=== PATIENT | male | born 1955 | race Caucasian/White ===

== ENCOUNTER 2024-08-18 18:31 | Inpatient (IN) | payer MEDICARE, SELFPAY ==
--- NOTE | ~2024-08-18 | US_ITS ---
EXAMINATION: US venous doppler UE DATE: 08/22/2024 16:48 INDICATION: Right upper limb swelling TECHNIQUE: Grayscale images without and with compression and Doppler images of the bilateral upper ex tremity veins were obtained. COMPARISON: None. FINDINGS: Small amount of noncompressible thrombus in the right basilic vein at the forearm at the distal tip a t the peripheral IV is seen within the vein. The right basilic vein at the upper arm remains patent. The right internal jugular vein, subclavian vein, axillary vein, brachial vein, cephalic vein, radial vein, and ulnar vein are patent. The left internal jugular vein, subclavian vein, axillary vein, brachial vein, basilic vein, cephalic vein, radial vein, and ulnar vein are patent. IMPRESSION: 1. Small amount of thrombus along side a peripheral IV in the right basilic vein at the forearm. Reviewed, dictated and finalized at location B. CTOR OF FIELD SALES IMPRESSION: 1. Small amount of thrombus along side a peripheral IV in the right basilic vei n at the forearm.
--- NOTE | ~2024-08-18 | XR_ITS ---
IMPRESSION: 1. No evidence of osteomyelitis. EXAMINATION: XR foot RT min 3V DATE: 08/18/2024 22:32 INDICATION: Right foot ulcer. TECHNIQUE: 3 views of right foot were obtained. COMPARISON: None. FINDINGS: Alignment is normal. No fracture. There is mild osteoarthritis of talonavicular joint. Ther e are enthesophytes at the posterior and plantar aspects of calcaneal tuberosity. IMPRESSION: 1. No evidence of osteomyelitis. Reviewed, dictated and finalized at location A. ESS DEVELOPER
--- NOTE | ~2024-08-18 | US_ITS ---
US renal BI Ordering provider: Jennifer Hammond MD History: . rosendo . Comparison: None Technique: Ultrasound bilateral kidneys. Findings: RIGHT KIDNEY: Not demonstrated. LEFT KIDNEY: Measures 10.8x 5.2x 5.6 cm in length which is normal in size. No renal cysts. No renal m ass or visualized echogenic stones. Otherwise, normal echotexture and contour. No hydronephrosis. Nor mal renal cortical thickness. BLADDER: Not visualized. IMPRESSION: Right kidney is not visualized. The left kidney is normal. Reviewed, dictated and finalized at location A. GER ED
--- NOTE | ~2024-08-18 | MR_ITS ---
EXAMINATION: MR brain/brain stem wo/w con DATE: 08/19/2024 17:25 INDICATION: Seizure-like activity. TECHNIQUE: Magnetic resonance imaging (MRI) of the brain and brainstem was performed without and with 20 mL MultiHance intravenous contrast. COMPARISON: Head CT 08/18/2024 FINDINGS: There is no intracranial hemorrhage, acute infarction, or abnormal intracranial mass lesion . There are scattered areas of nonspecific increased T2-weighted signal intensity in the cerebral whi te matter. The ventricles are normal in size. There are likely changes of ocular lens replacement mariano geries. The paranasal sinuses are clear. The mastoid air cells are normal. IMPRESSION: 1. Mild nonspecific cerebral white matter disease and pontine disease, which likely represents chroni c small vessel ischemic disease. Reviewed, dictated and finalized at location A. ESSMAKER IMPRESSION: 1. Mild nonspecific cerebral white matter disease and pontine disease, which mejia meyers represents chronic small vessel ischemic disease.
--- NOTE | ~2024-08-18 | US_ITS ---
EXAMINATION: US carotid duplex BI DATE: 08/21/2024 17:14 INDICATION: Cerebrovascular disease. TECHNIQUE: Grayscale, color Doppler, and pulsed Doppler images of the cervical carotid arteries were obtained. The degree of vessel stenosis is placed in one of the following categories: normal, <50%, 5 0-69%, >=70% but less than near-occlusion, near-occlusion, or total occlusion. Note that percent sten osis relative to normal distal artery lumen diameter is indirectly measured from velocity measurement s as described by Pancho, et al. Radiology 2003; 229:340-346. COMPARISON: None. FINDINGS: RIGHT: The right common carotid artery (CCA) peak systolic velocity (PSV) is 71 cm/s. The right internal car otid artery (ICA) PSV is 64 cm/s. The right ICA end-diastolic velocity (EDV) is 15 cm/s. The right IC A/CCA PSV ratio is 0.9. Grayscale and color Doppler images yield an estimate of <50% diameter reducti on from plaque in the ICA. There is antegrade flow in the right vertebral artery. LEFT: The left CCA PSV is 57 cm/s. The left ICA PSV is 75 cm/s. The left ICA EDV is 21 cm/s. The left ICA/C CA PSV ratio is 1.3. Grayscale and color Doppler images yield an estimate of <50% diameter reduction from plaque in the ICA. There is antegrade flow in the left vertebral artery. IMPRESSION: 1. <50% stenosis in the right internal carotid artery. 2. <50% stenosis in the left internal carotid artery. Reviewed, dictated and finalized at location A. NTIFIC ILLUSTRATOR
--- NOTE | ~2024-08-18 | XR_ITS ---
EXAMINATION: XR chest 1V portable DATE: 08/18/2024 19:01 INDICATION: Weakness. TECHNIQUE: A single frontal view of the chest was obtained. COMPARISON: None. FINDINGS: There is no pneumonia, pleural effusion, or pneumothorax. The heart size is normal. IMPRESSION: 1. No acute cardiopulmonary disease. Reviewed, dictated and finalized at location A. ELING NURSE
--- NOTE | ~2024-08-18 | CT_ITS ---
EXAMINATION: CT brain wo con DATE: 08/18/2024 21:29 INDICATION: Altered mental status. TECHNIQUE: Computed tomography (CT) of the head was performed without intravenous contrast. The mA wa s adjusted according to patient size. Iterative reconstruction technique was employed. The dose-lengt h product was 756.67 mGy-cm. COMPARISON: None FINDINGS: There is no intracranial hemorrhage, acute infarction, or abnormal intracranial mass lesion . There are scattered areas of low attenuation in the cerebral white matter, which is within normal l imits for the patient's age. The ventricles are normal in size. There are likely changes of ocular le ns replacement surgeries. There is mild mucosal thickening in the paranasal sinuses. The mastoid air cells are normal. IMPRESSION: 1. Normal aging brain. Reviewed, dictated and finalized at location A. INE ENGINE ASSEMBLER IMPRESSION: 1. Normal aging brain.
[2024-08-18 18:26] VITALS: BP 131/79; PULSE 72; RESP 20; O2SAT 93
--- NOTE | 2024-08-18 18:36 | ECG_ITS ---
Test Date: 2024-08-18 18:40:27 Measurements Intervals [place] Rate: 71 P: 6 CT: 213 QRS: 26 QRSD: 101 T: 39 QT: 377 QTc: 411 Interpretive Statements SINUS RHYTHM WITH FIRST DEGREE AV BLOCK BASELINE ARTIFACT- I, II, III, AVR, AVL, AVF, V1-V6 BORDERLINE ECG No previous ECG available for comparison Electronically Signed On 08-18-2024 18:59:36 [address] by Neftali Patton D.O.
[2024-08-18 18:56] LABS: Basophils Percent Auto 0.2 % (0.2-1.2); Eosinophils Percent Auto 0.1 % (0-4.4); Hematocrit 49.5 % (42.0-52.0); Hemoglobin 16.7 g/dL (14.0-18.0); Immature Granulocyte Percent A 0.6 % (0-0.5); Lymphocytes Absolute Auto 0.73 K/mm3 (0.9-3.2); Lymphocytes Percent Auto 4.2 % (18.3-44.2); Mean Corpuscular HGB Conc 33.7 g/dl (32-36); Mean Corpuscular Hemoglobin 30.9 pg (26-34); Mean Corpuscular Volume 91.7 fl (80-100); Mean Platelet Volume 11.4 fl (7.4-10.4); Monocytes Absolute Auto 1.7 K/mm3 (0.1-0.6); Monocytes Percent Auto 9.5 % (2.6-8.5); Neutrophils Absolute Auto 14.8 K/mm3 (1.3-6.7); Neutrophils Percent Auto 85.4 % (45.5-73.1); Platelet Count Result 278 k/mm3 (150-375); Red Cell Distribution Width 13.4 % (11.5-14.5); White Blood Count 17.4 K/mm3 (4.5-10.0)
[2024-08-18 19:15] LABS: Alanine Aminotransferase 49 U/L (6-50); Albumin Level 4.2 g/dL (3.5-5.1); Alkaline Phosphatase 92 U/L (38-126); Anion Gap 15 mmol/L (4-12); Aspartate Amino Transferase 198 U/L (17-59); Bilirubin,Total 2.3 mg/dL (0.2-1.3); Blood Urea Nitrogen 53 mg/dL (9-20); Carbon Dioxide 21 mmol/L (22-30); Chloride 93 mmol/L (98-107); Estimated CRCL calculation 53 ml/min; Estimated Glomerular Filt Rate 47; Glucose 337 mg/dL (65-110); Potassium 4.8 mmol/L (3.4-5.0); Sodium 129 mmol/L (137-145)
--- NOTE | 2024-08-18 19:21 | PC.NURSE ---
Assumed care of pt after receiving report from YANCI Spencer @[phone]
[2024-08-18 19:30] VITALS: BP 137/83; PULSE 82; RESP 22; TEMP 36.8; O2SAT 99
[2024-08-18] MEDS: SODIUM CHLORIDE 0.9% IV 1,000 ML 999 ML IV CONT (19:50)
[2024-08-18 19:57] LABS: Creatine Kinase 6538 U/L (55-170)
[2024-08-18 20:21] LABS: Influenza A QL RT-PCR Negative (Negative); Influenza B QL RT-PCR Negative (Negative); RSV RNA, RT-PCR Negative (Negative); SARS-CoV-2 RNA PCR Negative (Negative)
[2024-08-18 20:45] LABS: Add Urine Microscopic? YES; Appearance Urine Clear (Clear); Bacteria Urine None Seen /hpf; Bilirubin Urine Negative (Negative); Blood Urine 1+ (Negative); Color Urine Yellow (Yellow); Glucose Urine UA 3+ mg/dL (Negative); Ketones Urine Negative (Negative); Leukocyte Esterase Ur Negative LEU/UL (Negative); Nitrate Urine Negative (Negative); Non Pathogenic Casts 0-2; Protein Urine 2+ mg/dL (Negative); RBC Urine 0-2 /hpf (0-2); Specific Grav Ur 1.025 (1.001-1.035); Squamous Epithelial Cell Urine None Seen /hpf (Few); WBC Urine 0-5 /hpf (0-3)
[2024-08-18 20:54] LABS: Alveolar/Arterial O2 Gradient 38.7 mmHg; Base Excess ABG -3.7 mEq/l (+/-2.0); Fractional Inspired Oxygen 21 %; HCO3 ABG 19.1 mEq/l (22.0-26.0); Oxygen Content ABG 21.4 %vol (16.0-22.0); Oxygen Saturation ABG 95.7 % (95.0-100.0); Oxyhemoglobin 94.4 % THb (90.0-100.0); PCO2 ABG 29.4 mmHg (35.0-45.0); PO2 ABG 75.8 mmHg (80.0-100.0); PO2 FiO2 Ratio Arterial Blood 3.61 %; Total Hemoglobin 16.1 g/dL (12.0-18.0)
[2024-08-18 20:56] LABS: Amphetamine Screen Urine Negative (Negative); Barbiturate Screen Urine Negative (Negative); Benzodiazepines Screen Urine Positive (Negative); Cannabinoid Screen Urine Positive (Negative); Cocaine Screen Urine Negative (Negative); Methadone Screen Urine Negative (Negative); Opiate Screen Urine Negative (Negative); Phencyclidine Screen Urine Negative (Negative)
[2024-08-18 20:56] LABS: Modified Allen's Test Pass; Site Drawn RIGHT RADIAL
[2024-08-18 21:19] LABS: INR 1.2; Prothrombin Time 15.9 Seconds (11.1-14.7)
[2024-08-18 21:20] LABS: Ethanol < 10 mg/dL (<10); Lactic Acid Reflex 2.1 mmol/L (0.7-2.0)
--- NOTE | 2024-08-18 21:26 | ED.WEAKNESS ---
HPI - Weakness General Chief complaint: Weakness <Anastasiya Goldman PA-C - Last Filed: 08/18/24 22:55> Stated complaint: GENERALIZED WEAKNESS <Anastasiya Goldman PA-C - Last Filed: 08/18/24 22:55> History of Present Illness HPI Narrative: 68-year-old male presents to the ED with son at bedside via EMS for generalized weakness. Patient states he has felt weak for the past 2-3 days. He denies pain anywhere, chest pain, shortness of breath, abdominal pain, N/V/D, dysuria or hematuria, cough or congestion, rash. Patient's son is at bedside to assist with history. States the patient was at home by himself and has been having difficulty care for himself. States the patient's father went to check on the patient today and had found him sitting in his recliner with soiled pants. The patient reportedly had been sitting in the recliner for 2-3 days. States he could not get up because he felt weak. He normally ambulates with a walker but has been unable to ambulate since. Patient's son is enquiring about assisted living placement. States he is concerned the patient has not been caring for himself and has not been compliant with his medications. However the patient is adamantly against usp/assisted living placement. Patient has since also states the patient has seemed more confused than normal. <Anastasiya Goldman PA-C - Last Filed: 08/18/24 22:55> Related Data Home medications: Home Medications Medication Instructions Recorded Confirmed alprazolam 0.5 mg tablet 0.5 mg PO BID PRN Anxiety 08/18/24 08/18/24 duloxetine 60 mg capsule,delayed 60 mg PO DAILY 08/18/24 08/18/24 release insulin aspart U-100 100 unit/mL See Rx Instructions .Route 08/18/24 08/18/24 (3 mL) subcutaneous pen (Novolog .COMPLEX PRN Hyperglycemia FlexPen U-100 Insulin aspart) insulin degludec 200 unit/mL (3 See Rx Instructions .Route .COMPLEX 08/18/24 08/18/24 mL) subcutaneous pen (Tresiba FlexTouch U-200 insulin) losartan 100 mg tablet 100 mg PO DAILY 08/18/24 08/18/24 pregabalin 200 mg capsule 200 mg PO TID 08/18/24 08/18/24 rosuvastatin 10 mg tablet 10 mg PO DAILY 08/18/24 08/18/24 vibegron 75 mg tablet (Gemtesa) 75 mg PO DAILY 08/18/24 08/18/24 <Anastasiya Goldman PA-C - Last Filed: 08/18/24 22:55> Allergies/Adverse reactions: Allergies Allergy/AdvReac Type Severity Reaction Status Date / Time No Known Allergies Allergy Verified 08/18/24 19:34 <Anastasiya Goldman PA-C - Last Filed: 08/18/24 22:55> Review of Systems Review of Systems: All systems reviewed & are unremarkable except as noted in HPI and below <Anastasiya Goldman PA-C - Last Filed: 08/18/24 22:55> [facility], LAT[facility] Family History Family History: Family History (Updated 08/18/24 @ 23:40 by Maribeth Sagastume RN) Other Unknown family medical history <Anastasiya Goldman PA-C - Last Filed: 08/18/24 22:55> Social History Social History: Social History Smoking status: Former smoker Substance use: former Substance use type: crack/cocaine Do You Feel Safe in your Home?: Yes Lack of Transportation: No Lack of Food: Never True Current Housing: I Have Housing Concerned About Future Housing: No Difficulty Paying Gas/Electric Bills: No Difficulty Paying for Meds: YES Currently Unemployed: No Education: High School Diploma/GED Difficulty w/ Childcare or Family Care: No Spiritual care concerns: No <Anastasiya Goldman PA-C - Last Filed: 08/18/24 22:55> Exam Narrative: GENERAL: Chronically ill-appearing, NAD HEAD: Normocephalic, atraumatic. EYES: PERRLA and EOMI. ENT: Nares clear, no rhinorrhea or epistaxis. Mucous membranes moist. NECK: Supple. CHEST: Clear to auscultation. No respiratory distress. HEART: Regular rate and rhythm. No murmur heard. Normal peripheral pulses. ABDOMEN: Soft, nontender, nondistended, normal active bowel sounds. Pants are soiled with stool EXTREMITIES: Lower extremities with evidence of chronic PAD, hemosiderin deposition and delayed cap refill SKIN: Healing abrasion to the left elbow with no bony tenderness and full range of motion. No ischial or sacral wounds. 1cm chronic wound to the plantar aspect of the right foot with no surrounding cellulitis, no purulence. Patient and family states this is chronic NEURO: No focal deficits. Alert and oriented x2. Moving all extremities spontaneously <Anastasiya Goldman PA-C - Last Filed: 08/18/24 22:55> Course FOILING MACHINE OPERATOR/PA Physician Supervision For this patient encounter, I reviewed the FOILING MACHINE OPERATOR or PA documentation, treatment plan, and medical decision making and had [id number] time with this patient. I performed all aspects of the MDM as documented. <Bruna Rangel MD - Last Filed: 08/19/24 07:27> Vital Signs Vital signs: Vital Signs Pulse Rate 72 08/18/24 18:26 Respiratory Rate 20 08/18/24 18:26 Blood Pressure 131/79 08/18/24 18:26 Pulse Oximetry 93 08/18/24 18:26 Oxygen Delivery Room Air 08/18/24 18:26 Temperature 97.2 F L 08/19/24 04:15 Pulse Rate 70 08/19/24 04:15 Respiratory Rate 24 H 08/19/24 04:15 Blood Pressure 126/61 08/19/24 04:15 Pulse Oximetry 98 08/19/24 04:15 Oxygen Delivery Room Air 08/18/24 18:26 <Anastasiya Goldman PA-C - Last Filed: 08/18/24 22:55> Vital Signs Pulse Rate 72 08/18/24 18:26 Respiratory Rate 20 08/18/24 18:26 Blood Pressure 131/79 08/18/24 18:26 Pulse Oximetry 93 08/18/24 18:26 Oxygen Delivery Room Air 08/18/24 18:26 Temperature 97.2 F L 08/19/24 04:15 Pulse Rate 70 08/19/24 04:15 Respiratory Rate 24 H 08/19/24 04:15 Blood Pressure 126/61 08/19/24 04:15 Pulse Oximetry 98 08/19/24 04:15 Oxygen Delivery Room Air 08/18/24 18:26 <Bruna Rangel MD - Last Filed: 08/19/24 07:27> MDM - Weakness MDM Narrative Medical decision making narrative: 68-year-old male history of insulin-dependent diabetes, hypertension, hyperlipidemia presents to the emergency department via EMS from home with son at bedside for generalized weakness and failure to thrive. See HPI for further history. Triage vitals are stable. He is afebrile. CBC with leukocytosis of 17.4. Chemistries are remarkable for hyponatremia of 129, chloride of 93, bicarb of 21 with an anion gap of 15. His glucose is also elevated at 337 his lactic elevated 2.1. Anion gap acidosis may be secondary to mild DKA verses dehydration. Will add on beta hydroxybutyrate. Patient is found to be in rhabdo with a CK of 6538 resulting in SEBLE with a creatinine of 1.5 and BUN of 53. UA with glucosuria, proteinuria and +blood, no UTI. UDS is positive for benzodiazepines and cannabinoids. COVID, flu RSV are negative. Chest x-ray shows no acute cardiopulmonary findings. ETOH less than 10. Troponin within normal limits. EKG shows sinus rhythm with first-degree AV block, no ischemic changes. XR of the right foot shows no evidence of osteomyelitis. The area does not appear to be infected on exam. Beta hydroxybutyrate is very minimally elevated at 0.44. I have very low suspicion for DKA and states suspect his electrolyte derangement and confusion is secondary to rhabdomyolysis and dehydration. Fluids given in the ED. Plan admit to the hospitalist for further evaluation and management. Discussed the case with the hospitalist, Dr. Hammond, agrees to the plan for admission. <Anastasiya Goldman PA-C - Last Filed: 08/18/24 22:55> Lab Data Result diagrams: 08/19/24 05:15 08/19/24 05:15 <Anastasiya Goldman PA-C - Last Filed: 08/18/24 22:55> Labs: Lab Results 08/18/24 08/18/24 08/18/24 Range/Units 18:49 19:35 20:02 WBC 17.4 H (4.5-10.0) K/mm3 RBC 5.40 (4.6-6.20) M/mm3 Hgb 16.7 (14.0-18.0) g/dL Hct 49.5 (42.0-52.0) % MCV 91.7 (80-100) fl MCH 30.9 (26-34) pg MCHC 33.7 (32-36) g/dl RDW 13.4 (11.5-14.5) % Plt Count 278 (150-375) k/mm3 MPV 11.4 H (7.4-10.4) fl Immature Gran % (Auto) 0.6 H (0-0.5) % Neut % (Auto) 85.4 H (45.5-73.1) % Lymph % (Auto) 4.2 L (18.3-44.2) % [place] % (Auto) 9.5 H (2.6-8.5) % Eos % (Auto) 0.1 (0-4.4) % Baso % (Auto) 0.2 (0.2-1.2) % Lymph # (Auto) 0.73 L (0.9-3.2) K/mm3 [place] # (Auto) 1.7 H (0.1-0.6) K/mm3 Eos # (Auto) 0.0 (0-0.3) K/mm3 Baso # (Auto) 0.0 (0.0-0.1) K/mm3 Abs Immat Gran (auto) 0.10 H (0.00-0.031) K/mm3 Absolute Neuts (auto) 14.8 H (1.3-6.7) K/mm3 Absolute Nucleated RBC 0.000 (0.0-0.012) K/mm3 Nucleated RBC % 0.0 (0.0-0.2) % PT (11.1-14.7) Seconds INR APTT (22.3-36.8) Seconds Sodium 129 L (137-145) mmol/L Potassium 4.8 (3.4-5.0) mmol/L Chloride 93 L (98-107) mmol/L Carbon Dioxide 21 L (22-30) mmol/L Anion Gap 15 H (4-12) mmol/L BUN 53 H (9-20) mg/dL Creatinine 1.50 H (0.7-1.3) mg/dL Estim Creat Clear Calc 53 ml/min Estimated GFR 47 L (59 - ) Glucose 337 H (65-110) mg/dL Lactic Acid (0.7-2.0) mmol/L Calcium 9.0 (8.4-10.2) mg/dL Total Bilirubin 2.3 H (0.2-1.3) mg/dL AST 198 H (17-59) U/L ALT 49 (6-50) U/L Alkaline Phosphatase 92 (38-126) U/L Total Creatine Kinase 6538 H (55-170) U/L Troponin I (0.000-0.034) ng/mL Total Protein 8.0 (6.3-8.2) g/dL Albumin 4.2 (3.5-5.1) g/dL Beta-Hydroxybutyrate/Acetoacetate (0.02-0.27) mmol/L TSH (0.465-4.680) uIU/mL Urine Color Yellow (Yellow) Urine Appearance Clear (Clear) Urine pH 5.0 (5.0-9.0) Ur Specific Williams 1.025 (1.001-1.035) Urine Protein 2+ H (Negative) mg/dL Urine Glucose (UA) 3+ H (Negative) mg/dL Urine Ketones Negative (Negative) mg/dL Ur Blood (Man) 1+ H (Negative) Urine Nitrate Negative (Negative) Urine Bilirubin Negative (Negative) Urine Urobilinogen 1.0 (<2.0) mg/dL Leukocyte Esterase Rfl Negative (Negative) IFEOMA/UL Urine RBC 0-2 (0-2) /hpf Urine WBC 0-5 (0-3) /hpf Ur Squamous Epith Cells None seen (Few) /hpf Urine Bacteria None seen /hpf Urine Casts 0-2 Ur Random Sodium 35 meq/L Urine Creatinine 145.4 mg/dL Urine Opiates Screen Negative (Negative) Urine Methadone Screen Negative (Negative) Ur Barbiturates Screen Negative (Negative) Ur Phencyclidine Scrn Negative (Negative) Ur Amphetamine Screen Negative (Negative) U Benzodiazepines Scrn Positive A (Negative) Urine Cocaine Screen Negative (Negative) U Cannabinoids Screen Positive A (Negative) Ethyl Alcohol (<10) mg/dL Influenza A (RT-PCR) Negative (Negative) Influenza B (RT-PCR) Negative (Negative) RSV (RT-PCR) Negative (Negative) SARS-CoV-2 RNA (RT-PCR) Negative (Negative) 08/18/24 Range/Units 20:59 WBC (4.5-10.0) K/mm3 RBC (4.6-6.20) M/mm3 Hgb (14.0-18.0) g/dL Hct (42.0-52.0) % MCV (80-100) fl MCH (26-34) pg MCHC (32-36) g/dl RDW (11.5-14.5) % Plt Count (150-375) k/mm3 MPV (7.4-10.4) fl Immature Gran % (Auto) (0-0.5) % Neut % (Auto) (45.5-73.1) % Lymph % (Auto) (18.3-44.2) % [place] % (Auto) (2.6-8.5) % Eos % (Auto) (0-4.4) % Baso % (Auto) (0.2-1.2) % Lymph # (Auto) (0.9-3.2) K/mm3 [place] # (Auto) (0.1-0.6) K/mm3 Eos # (Auto) (0-0.3) K/mm3 Baso # (Auto) (0.0-0.1) K/mm3 Abs Immat Gran (auto) (0.00-0.031) K/mm3 Absolute Neuts (auto) (1.3-6.7) K/mm3 Absolute Nucleated RBC (0.0-0.012) K/mm3 Nucleated RBC % (0.0-0.2) % PT 15.9 H (11.1-14.7) Seconds INR 1.2 APTT 30.0 (22.3-36.8) Seconds Sodium (137-145) mmol/L Potassium (3.4-5.0) mmol/L Chloride (98-107) mmol/L Carbon Dioxide (22-30) mmol/L Anion Gap (4-12) mmol/L BUN (9-20) mg/dL Creatinine (0.7-1.3) mg/dL Estim Creat Clear Calc ml/min Estimated GFR (59 - ) Glucose (65-110) mg/dL Lactic Acid 2.1 H (0.7-2.0) mmol/L Calcium (8.4-10.2) mg/dL Total Bilirubin (0.2-1.3) mg/dL AST (17-59) U/L ALT (6-50) U/L Alkaline Phosphatase (38-126) U/L Total Creatine Kinase (55-170) U/L Troponin I < 0.012 (0.000-0.034) ng/mL Total Protein (6.3-8.2) g/dL Albumin (3.5-5.1) g/dL Beta-Hydroxybutyrate/Acetoacetate 0.44 H (0.02-0.27) mmol/L TSH 0.514 (0.465-4.680) uIU/mL Urine Color (Yellow) Urine Appearance (Clear) Urine pH (5.0-9.0) Ur Specific Williams (1.001-1.035) Urine Protein (Negative) mg/dL Urine Glucose (UA) (Negative) mg/dL Urine Ketones (Negative) mg/dL Ur Blood (Man) (Negative) Urine Nitrate (Negative) Urine Bilirubin (Negative) Urine Urobilinogen (<2.0) mg/dL Leukocyte Esterase Rfl (Negative) IFEOMA/UL Urine RBC (0-2) /hpf Urine WBC (0-3) /hpf Ur Squamous Epith Cells (Few) /hpf Urine Bacteria /hpf Urine Casts Ur Random Sodium meq/L Urine Creatinine mg/dL Urine Opiates Screen (Negative) Urine Methadone Screen (Negative) Ur Barbiturates Screen (Negative) Ur Phencyclidine Scrn (Negative) Ur Amphetamine Screen (Negative) U Benzodiazepines Scrn (Negative) Urine Cocaine Screen (Negative) U Cannabinoids Screen (Negative) Ethyl Alcohol < 10 (<10) mg/dL Influenza A (RT-PCR) (Negative) Influenza B (RT-PCR) (Negative) RSV (RT-PCR) (Negative) SARS-CoV-2 RNA (RT-PCR) (Negative) <Anastasiya Goldman PA-C - Last Filed: 08/18/24 22:55> Lab Results 08/18/24 08/18/24 08/18/24 Range/Units 18:49 19:35 20:02 WBC 17.4 H (4.5-10.0) K/mm3 RBC 5.40 (4.6-6.20) M/mm3 Hgb 16.7 (14.0-18.0) g/dL Hct 49.5 (42.0-52.0) % MCV 91.7 (80-100) fl MCH 30.9 (26-34) pg MCHC 33.7 (32-36) g/dl RDW 13.4 (11.5-14.5) % Plt Count 278 (150-375) k/mm3 MPV 11.4 H (7.4-10.4) fl Immature Gran % (Auto) 0.6 H (0-0.5) % Neut % (Auto) 85.4 H (45.5-73.1) % Lymph % (Auto) 4.2 L (18.3-44.2) % [place] % (Auto) 9.5 H (2.6-8.5) % Eos % (Auto) 0.1 (0-4.4) % Baso % (Auto) 0.2 (0.2-1.2) % Lymph # (Auto) 0.73 L (0.9-3.2) K/mm3 [place] # (Auto) 1.7 H (0.1-0.6) K/mm3 Eos # (Auto) 0.0 (0-0.3) K/mm3 Baso # (Auto) 0.0 (0.0-0.1) K/mm3 Abs Immat Gran (auto) 0.10 H (0.00-0.031) K/mm3 Absolute Neuts (auto) 14.8 H (1.3-6.7) K/mm3 Absolute Nucleated RBC 0.000 (0.0-0.012) K/mm3 Nucleated RBC % 0.0 (0.0-0.2) % PT (11.1-14.7) Seconds INR APTT (22.3-36.8) Seconds Sodium 129 L (137-145) mmol/L Potassium 4.8 (3.4-5.0) mmol/L Chloride 93 L (98-107) mmol/L Carbon Dioxide 21 L (22-30) mmol/L Anion Gap 15 H (4-12) mmol/L BUN 53 H (9-20) mg/dL Creatinine 1.50 H (0.7-1.3) mg/dL Estim Creat Clear Calc 53 ml/min Estimated GFR 47 L (59 - ) Glucose 337 H (65-110) mg/dL Lactic Acid (0.7-2.0) mmol/L Calcium 9.0 (8.4-10.2) mg/dL Total Bilirubin 2.3 H (0.2-1.3) mg/dL AST 198 H (17-59) U/L ALT 49 (6-50) U/L Alkaline Phosphatase 92 (38-126) U/L Total Creatine Kinase 6538 H (55-170) U/L Troponin I (0.000-0.034) ng/mL Total Protein 8.0 (6.3-8.2) g/dL Albumin 4.2 (3.5-5.1) g/dL Beta-Hydroxybutyrate/Acetoacetate (0.02-0.27) mmol/L TSH (0.465-4.680) uIU/mL Urine Color Yellow (Yellow) Urine Appearance Clear (Clear) Urine pH 5.0 (5.0-9.0) Ur Specific Williams 1.025 (1.001-1.035) Urine Protein 2+ H (Negative) mg/dL Urine Glucose (UA) 3+ H (Negative) mg/dL Urine Ketones Negative (Negative) mg/dL Ur Blood (Man) 1+ H (Negative) Urine Nitrate Negative (Negative) Urine Bilirubin Negative (Negative) Urine Urobilinogen 1.0 (<2.0) mg/dL Leukocyte Esterase Rfl Negative (Negative) IFEOMA/UL Urine RBC 0-2 (0-2) /hpf Urine WBC 0-5 (0-3) /hpf Ur Squamous Epith Cells None seen (Few) /hpf Urine Bacteria None seen /hpf Urine Casts 0-2 Ur Random Sodium 35 meq/L Urine Creatinine 145.4 mg/dL Urine Opiates Screen Negative (Negative) Urine Methadone Screen Negative (Negative) Ur Barbiturates Screen Negative (Negative) Ur Phencyclidine Scrn Negative (Negative) Ur Amphetamine Screen Negative (Negative) U Benzodiazepines Scrn Positive A (Negative) Urine Cocaine Screen Negative (Negative) U Cannabinoids Screen Positive A (Negative) Ethyl Alcohol (<10) mg/dL Influenza A (RT-PCR) Negative (Negative) Influenza B (RT-PCR) Negative (Negative) RSV (RT-PCR) Negative (Negative) SARS-CoV-2 RNA (RT-PCR) Negative (Negative) 11/18/24 Range/Units 20:59 WBC (4.5-10.0) K/mm3 RBC (4.6-6.20) M/mm3 Hgb (14.0-18.0) g/dL Hct (42.0-52.0) % MCV (80-100) fl MCH (26-34) pg MCHC (32-36) g/dl RDW (11.5-14.5) % Plt Count (150-375) k/mm3 MPV (7.4-10.4) fl Immature Gran % (Auto) (0-0.5) % Neut % (Auto) (45.5-73.1) % Lymph % (Auto) (18.3-44.2) % [place] % (Auto) (2.6-8.5) % Eos % (Auto) (0-4.4) % Baso % (Auto) (0.2-1.2) % Lymph # (Auto) (0.9-3.2) K/mm3 [place] # (Auto) (0.1-0.6) K/mm3 Eos # (Auto) (0-0.3) K/mm3 Baso # (Auto) (0.0-0.1) K/mm3 Abs Immat Gran (auto) (0.00-0.031) K/mm3 Absolute Neuts (auto) (1.3-6.7) K/mm3 Absolute Nucleated RBC (0.0-0.012) K/mm3 Nucleated RBC % (0.0-0.2) % PT 15.9 H (11.1-14.7) Seconds INR 1.2 APTT 30.0 (22.3-36.8) Seconds Sodium (137-145) mmol/L Potassium (3.4-5.0) mmol/L Chloride (98-107) mmol/L Carbon Dioxide (22-30) mmol/L Anion Gap (4-12) mmol/L BUN (9-20) mg/dL Creatinine (0.7-1.3) mg/dL Estim Creat Clear Calc ml/min Estimated GFR (59 - ) Glucose (65-110) mg/dL Lactic Acid 2.1 H (0.7-2.0) mmol/L Calcium (8.4-10.2) mg/dL Total Bilirubin (0.2-1.3) mg/dL AST (17-59) U/L ALT (6-50) U/L Alkaline Phosphatase (38-126) U/L Total Creatine Kinase (55-170) U/L Troponin I < 0.012 (0.000-0.034) ng/mL Total Protein (6.3-8.2) g/dL Albumin (3.5-5.1) g/dL Beta-Hydroxybutyrate/Acetoacetate 0.44 H (0.02-0.27) mmol/L TSH 0.514 (0.465-4.680) uIU/mL Urine Color (Yellow) Urine Appearance (Clear) Urine pH (5.0-9.0) Ur Specific Williams (1.001-1.035) Urine Protein (Negative) mg/dL Urine Glucose (UA) (Negative) mg/dL Urine Ketones (Negative) mg/dL Ur Blood (Man) (Negative) Urine Nitrate (Negative) Urine Bilirubin (Negative) Urine Urobilinogen (<2.0) mg/dL Leukocyte Esterase Rfl (Negative) IFEOMA/UL Urine RBC (0-2) /hpf Urine WBC (0-3) /hpf Ur Squamous Epith Cells (Few) /hpf Urine Bacteria /hpf Urine Casts Ur Random Sodium meq/L Urine Creatinine mg/dL Urine Opiates Screen (Negative) Urine Methadone Screen (Negative) Ur Barbiturates Screen (Negative) Ur Phencyclidine Scrn (Negative) Ur Amphetamine Screen (Negative) U Benzodiazepines Scrn (Negative) Urine Cocaine Screen (Negative) U Cannabinoids Screen (Negative) Ethyl Alcohol < 10 (<10) mg/dL Influenza A (RT-PCR) (Negative) Influenza B (RT-PCR) (Negative) RSV (RT-PCR) (Negative) SARS-CoV-2 RNA (RT-PCR) (Negative) <Bruna Rangel MD - Last Filed: 08/19/24 07:27> ABG Data ABG results: 08/18/24 20:47 Puncture Site Right radial ABG pH 7.430 ABG pCO2 29.4 L ABG pO2 75.8 L ABG PO2/FiO2 Ratio 3.61 ABG HCO3 19.1 L ABG O2 Saturation 95.7 ABG O2 Content 21.4 ABG Base Excess -3.7 A-a Gradient 38.7 Oxyhemoglobin 94.4 Total Hemoglobin 16.1 O2 Delivery Device Not Reportable O2 Liters/Min Not Reportable FiO2 21 <Anastasiya Goldman PA-C - Last Filed: 08/18/24 22:55> 08/18/24 20:47 Puncture Site Right radial ABG pH 7.430 ABG pCO2 29.4 L ABG pO2 75.8 L ABG PO2/FiO2 Ratio 3.61 ABG HCO3 19.1 L ABG O2 Saturation 95.7 ABG O2 Content 21.4 ABG Base Excess -3.7 A-a Gradient 38.7 Oxyhemoglobin 94.4 Total Hemoglobin 16.1 O2 Delivery Device Not Reportable O2 Liters/Min Not Reportable FiO2 21 <Bruna Rangel MD - Last Filed: 08/19/24 07:27> Discharge Plan Discharge Clinical Impression: SEBLE (acute kidney injury), Dehydration, Hyponatremia Rhabdomyolysis Qualifiers: Rhabdomyolysis type: non-traumatic Qualified Code(s): M62.82 - Rhabdomyolysis <Anastasiya Goldman PA-C - Last Filed: 08/18/24 22:55> Patient Disposition: Still a Patient <Anastasiya Goldman PA-C - Last Filed: 08/18/24 22:55> Condition: Stable <Anastasiya Goldman PA-C - Last Filed: 08/18/24 22:55>
[2024-08-18 21:32] LABS: Troponin I < 0.012 ng/mL (0.000-0.034)
[2024-08-18 21:40] VITALS: BP 117/58; PULSE 73; RESP 20; O2SAT 100
[2024-08-18 21:51] LABS: Thyroid Stimulating Hormone 0.514 uIU/mL (0.465-4.680)
[2024-08-18 22:11] LABS: Beta-Hydroxybutyrate/Acetoacetate 0.44 mmol/L (0.02-0.27)
--- NOTE | 2024-08-18 22:19 | P.HP_ITS ---
H&P: HPI History of Present Illness Date/Time: 08/18/24 22:19 Chief Complaint: generalized weak Narrative: This is a 68-year-old male with past medical history significant for obesity, insulin-dependent diabetes mellitus, generalized anxiety disorder, diabetic ulcer of the right foot, peripheral diabetic neuropathy. patient was brought to the emergency room via ambulance due to generalized weakness unable to get up from his recliner patient had a fall prior to these 2 or 3 days before and refused to come to the emergency room EMS was called to move him to the chair however patient has been not been able to get up from chair in 3 days due to generalized weakness today was brought for evaluation. Patient is unable to give any history due to altered mental status most of which has been obtained from brother who is at bedside who states that patient seldom leaves the house only for grocery shopping and doctor's appointments became very paranoid after COVID and became a recluse. Preliminary workup was significant for CK of 6000, BUN 50 creatinine 1.5 sodium 129 chloride 90 beta hydroxybutyrate 0.44 urine tox was positive for cannabinoids and benzos tested negative for influenza type A influenza type B COVID and RSV. Patient has been admitted for further evaluation management and treatment. EXAMINATION: XR chest 1V portable DATE: 08/18/2024 19:01 INDICATION: Weakness. TECHNIQUE: A single frontal view of the chest was obtained. COMPARISON: None. FINDINGS: There is no pneumonia, pleural effusion, or pneumothorax. The heart size is normal. IMPRESSION: 1. No acute cardiopulmonary disease. EXAMINATION: CT brain wo con DATE: 08/18/2024 21:29 INDICATION: Altered mental status. TECHNIQUE: Computed tomography (CT) of the head was performed without int ravenous contrast. The mA was adjusted according to patient size. Iterative reconstruction technique was employed. The dose-length product was 756.67 mGy- cm. COMPARISON: None FINDINGS: There is no intracranial hemorrhage, acute infarction, or abnormal intracranial mass lesion. There are scattered areas of low attenuation in the cerebral white matter, which is within normal limits for the patient's age. The ventricles are normal in size. There are likely changes of ocular lens replacement surgeries. There is mild mucosal thickening in the paranasal sinuses. The mastoid air cells are normal. IMPRESSION: 1. Normal aging brain. EXAMINATION: XR foot RT min 3V DATE: 08/18/2024 22:32 INDICATION: Right foot ulcer. TECHNIQUE: 3 views of right foot were obtained. COMPARISON: None. FINDINGS: Alignment is normal. No fracture. There is mild osteoarthritis of talonavicular joint. There are enthesophytes at the posterior and plantar aspects of calcaneal tuberosity. IMPRESSION: 1. No evidence of osteomyelitis. Review of Systems Review of Systems: ROS unobtainable: Yes unobtainable due to mental status ( lethargy/obtundation) [facility] Family History Family History (Updated 08/18/24 @ 23:40 by Maribeth Sagastume RN) Other Unknown family medical history Social History Social History Smoking status: Former smoker Substance use: former Substance use type: crack/cocaine Do You Feel Safe in your Home?: Yes Lack of Transportation: No Lack of Food: Never True Current Housing: I Have Housing Concerned About Future Housing: No Difficulty Paying Gas/Electric Bills: No Difficulty Paying for Meds: YES Currently Unemployed: No Education: High School Diploma/GED Difficulty w/ Childcare or Family Care: No Spiritual care concerns: No Meds Home Medications and Allergies Home Medications Medication Instructions Recorded Confirmed Type alprazolam 0.5 mg tablet 0.5 mg PO BID PRN Anxiety 08/18/24 08/18/24 History duloxetine 60 mg capsule,delayed 60 mg PO DAILY 08/18/24 08/18/24 History release insulin aspart U-100 100 unit/mL See Rx Instructions .Route 08/18/24 08/18/24 History (3 mL) subcutaneous pen (Novolog .COMPLEX PRN Hyperglycemia FlexPen U-100 Insulin aspart) insulin degludec 200 unit/mL (3 See Rx Instructions .Route .COMPLEX 08/18/24 08/18/24 History mL) subcutaneous pen (Tresiba FlexTouch U-200 insulin) losartan 100 mg tablet 100 mg PO DAILY 08/18/24 08/18/24 History pregabalin 200 mg capsule 200 mg PO TID 08/18/24 08/18/24 History rosuvastatin 10 mg tablet 10 mg PO DAILY 08/18/24 08/18/24 History vibegron 75 mg tablet (Gemtesa) 75 mg PO DAILY 08/18/24 08/18/24 History Allergies Allergy/AdvReac Type Severity Reaction Status Date / Time No Known Allergies Allergy Verified 08/18/24 19:34 Vital Signs Vital Signs - 24 hr 08/18/24 18:26 08/18/24 19:30 08/18/24 21:40 Temperature 98.3 F Pulse Rate 72 82 73 Respiratory Rate 20 22 H 20 Blood Pressure 131/79 137/83 117/58 L Pulse Oximetry 93 99 100 Oxygen Delivery Room Air Exam Narrative: patient is laying in a stretcher Const: General: comfortable, no acute distress, well developed, alert, awake, ill appearing chronically, lethargic, patient obtunded and obese Nutritional Appearance: obese Orientation/consciousness: patient obtunded and lethargic HENMT: Head: normal to inspection, normocephalic and atraumatic Ears: hearing grossly normal bilaterally Face/Nose/Sinus: normal facial exam Face and sinus: normal facial exam Eyes: General: appearance normal, both eyes and all related structures Pupils: Equal, round and reactive pupils present EOM: EOMs intact bilaterally Neck: Neck: full ROM, no lymphadenopathy and no JVD Thyroid: thyroid normal Lymphatic: no lymphadenopathy noted Resp: Effort & Inspection: normal respiratory effort and able to speak in complete sentences Auscultation: clear to auscultation bilaterally Cardio: Jugular venous distension: no JVD Rate: regular rate Rhythm: regular rhythm Heart sounds: S1 normal heart sound present and S2 normal heart sound present GI: Inspection: Pannus present and obesity GI Palp: Yes Soft to palpation and Yes No hepatosplenomegaly present : General: Yes deferred Skin: Rashes: no rashes Wounds: no wounds Neuro: General: no focal motor deficits, CN's II-XI intact bilaterally, patient obtunded and Unable to assess gait Cranial nerves: Yes CN's II-XII intact bilaterally and Yes Equal, round and reactive pupils present Cognition (Neuro): abnormal cognition ( lethargy/obtunded) Gait exam (Neuro): Unable to assess gait Motor exam (neuro): 5/5 motor strength present throughout Extrem: General: normal to inspection, full ROM, no joint enlargement and no pedal edema Other: right foot ulcer H&P: Results Labs Labs: Short CBC 08/18/24 Range/Units 18:49 WBC 17.4 H (4.5-10.0) K/mm3 Hgb 16.7 (14.0-18.0) g/dL Hct 49.5 (42.0-52.0) % Plt Count 278 (150-375) k/mm3 BMP 08/18/24 18:49 Sodium 129 L Potassium 4.8 Chloride 93 L Carbon Dioxide 21 L BUN 53 H Creatinine 1.50 H Glucose 337 H Calcium 9.0 Cardiac Enzymes 08/18/24 08/18/24 Range/Units 18:49 20:59 Total Creatine Kinase 6538 H (55-170) U/L Troponin I < 0.012 (0.000-0.034) ng/mL Liver Function 08/18/24 Range/Units 18:49 Total Bilirubin 2.3 H (0.2-1.3) mg/dL AST 198 H (17-59) U/L ALT 49 (6-50) U/L Alkaline Phosphatase 92 (38-126) U/L Albumin 4.2 (3.5-5.1) g/dL Urine 08/18/24 Range/Units 20:02 Urine Color Yellow (Yellow) Urine Appearance Clear (Clear) Urine pH 5.0 (5.0-9.0) Ur Specific [place] 1.025 (1.001-1.035) Urine Protein 2+ H (Negative) mg/dL Urine Glucose (UA) 3+ H (Negative) mg/dL Assessment and Plan Assessment and plan (1) Rhabdomyolysis: Qualifiers: Rhabdomyolysis type: non-traumatic Qualified Code(s): M62.82 - Rhabdomyolysis Code(s): M62.82 - Rhabdomyolysis Status: Acute Assessment and Plan: admit to regular medical floor IV fluids serial BMP (2) Fall: Code(s): W19.XXXA - Unspecified fall, initial encounter Status: Acute Assessment and Plan: fall precautions (3) SEBLE (acute kidney injury): Code(s): N17.9 - Acute kidney failure, unspecified Status: Acute Assessment and Plan: holding losartan IV fluids (4) Dehydration: Code(s): E86.0 - Dehydration Status: Acute Assessment and Plan: IV fluids (5) Hyponatremia: Code(s): E87.1 - Hypo-osmolality and hyponatremia Status: Acute Assessment and Plan: receiving NS (6) Ulcer of right foot due to type 2 diabetes mellitus: Code(s): E11.621 - Type 2 diabetes mellitus with foot ulcer; L97.519 - Non-pressure chronic ulcer of other part of right foot with unspecified severity Status: Acute Assessment and Plan: local care (7) Obesity (BMI 30-39.9): Code(s): E66.9 - Obesity, unspecified Status: Acute Assessment and Plan: 1800 calorie restricted diet (8) Altered mental status: Code(s): R41.82 - Altered mental status, unspecified Status: Acute Assessment and Plan: likely encephalopathy (9) Failure to thrive: Status: Acute Assessment and Plan: PT OT consult Hospitalist MIPS Advance Care Plan I have confirmed that the patient's Advanced Care Plan is present, code status is documented, or surrogate decision maker is listed in patient medical record.: Yes Medication Reconciliation I have utilized all available resources to obtain, update and review the patients current medications (includes all prescriptions, OTC, herbals, cannabis, and nutritional supplements).: Yes
[2024-08-18 23:35] VITALS: BMI 39.7
[2024-08-18 23:38] VITALS: PULSE 81; RESP 17; O2SAT 100
--- NOTE | 2024-08-18 23:38 | PC.NURSE ---
Pt to be taken to floor after admission assessment is completed
--- NOTE | 2024-08-18 23:54 | PC.NURSE ---
Patient denies significant health history except for hypertension and diabetes; Patient states he is not compliant with taking medications as prescribed. Patient was asked about insulin dosing and he stated it's as needed ; RN asked about what his sliding scale is supposed to be and patient repeated it's as needed . Admission report provided to Tash Monroy RN.
[2024-08-19] VITALS (8 sets, daily range): BP systolic 102–137; BP diastolic 52–76; PULSE 69–86; RESP 16–24; TEMP 36.2–38.1; O2SAT 93–100
[2024-08-19 00:05] LABS: Reflex Lactic Acid Yes or No Add Lactic
--- NOTE | 2024-08-19 00:20 | ADMGEN ---
This patient, Rashid Mullen II, was admitted to Medical Room 254-01. Patient/family oriented to hospital policies and general routines including ID bracelet, bed and alarms, visiting hours, pain management, procedures, bathroom and other care routines, personal items, smoking policy, room service/diet, and visiting hours. Information on how to activate the Rapid Response Team has been discussed. Patient/Family are encouraged to report perceived risks to care and to ask questions if they do not understand what they are told or what they should do.
[2024-08-19 01:04] LABS: Lactic Acid 2.3 mmol/L (0.7-2.0)
--- NOTE | 2024-08-19 02:18 | PCRCNOTE ---
There was a code blue in the ED after ABG was ordered.
[2024-08-19 03:25] LABS: Creatinine Urine 145.4 mg/dL
[2024-08-19 03:29] LABS: Sodium Urine Random 35 meq/L
[2024-08-19] MEDS: SODIUM CHLORIDE 0.9% IV 1,000 ML 100 ML IV CONT ×2 (05:16→15:37)
[2024-08-19 05:32] LABS: Basophils Percent Auto 0.2 % (0.2-1.2); Eosinophils Percent Auto 0.1 % (0-4.4); Hematocrit 45.1 % (42.0-52.0); Hemoglobin 14.8 g/dL (14.0-18.0); Immature Granulocyte Absolute 0.16 K/mm3 (0.00-0.031); Lymphocytes Absolute Auto 0.82 K/mm3 (0.9-3.2); Lymphocytes Percent Auto 5.2 % (18.3-44.2); Mean Corpuscular HGB Conc 32.8 g/dl (32-36); Mean Corpuscular Hemoglobin 30.2 pg (26-34); Mean Platelet Volume 11.1 fl (7.4-10.4); Monocytes Absolute Auto 1.8 K/mm3 (0.1-0.6); Monocytes Percent Auto 11.4 % (2.6-8.5); Neutrophils Absolute Auto 12.9 K/mm3 (1.3-6.7); Neutrophils Percent Auto 82.1 % (45.5-73.1); Platelet Count Result 236 k/mm3 (150-375); Red Cell Distribution Width 13.2 % (11.5-14.5); White Blood Count 15.8 K/mm3 (4.5-10.0)
[2024-08-19 05:52] LABS: Anion Gap 10 mmol/L (4-12); Blood Urea Nitrogen 47 mg/dL (9-20); Calcium 8.4 mg/dL (8.4-10.2); Carbon Dioxide 25 mmol/L (22-30); Chloride 94 mmol/L (98-107); Estimated CRCL calculation 61 ml/min; Estimated Glomerular Filt Rate 55; Glucose 292 mg/dL (65-110); Potassium 4.4 mmol/L (3.4-5.0); Sodium 129 mmol/L (137-145)
[2024-08-19 06:16] LABS: Creatine Kinase 5698 U/L (55-170)
--- NOTE | 2024-08-19 07:33 | PM.IMPN ---
Progress Note: A&P Assessment and Plan (1) Altered mental status: Code(s): R41.82 - Altered mental status, unspecified Status: Acute Assessment and Plan: Concern for AMS on admission. Patient remains AOx4. - ABG: pH 7.430, pCO2 29.4, pO2 75.8, HCO3 19.1 - UA with clear appearance, 2+ protein, 3+ glucose, 1+ blood. Otherwise unremarkable and not concerning for infection. - UDS positive for Benzos (home medication) and cannabinoids - Chest XR: No acute cardiopulmonary disease. - Head CT: Normal aging brain. - Foot XR: No evidence of osteomyelitis. - Echo ordered (2) Seizure-like activity: Code(s): R56.9 - Unspecified convulsions Status: Acute Assessment and Plan: Per the patients son, the patient became extremely rigid having his eyes roll in the back of his head with his arms raised above his head and shaking. Patient did bite his tongue. He was incontinent of stool, however unsure if this occurred prior to episode or not. Son states that he appeared confused following the episode. He said this occurred for approximately 10 seconds then almost immediately recurred for another 10 seconds. Patient has no history of seizures. - No seizure history - Keppra IV 1500 mg loading dose given, then keppra IV 750 mg BID - Ativan 2 g PRN for prolonged seizure activty or recurrent seizures - EEG ordered - Head CT: Normal aging brain - MRI ordered - Neurology consulted, appreciate recommendations (3) Rhabdomyolysis: Qualifiers: Rhabdomyolysis type: non-traumatic Qualified Code(s): M62.82 - Rhabdomyolysis Code(s): M62.82 - Rhabdomyolysis Status: Acute Assessment and Plan: CK on admission 6538. - CK 5698 on am labs - IV fluids 100 ml/hr - US renal - Monitor I&Os, vital signs, neuro status and patient is a fall risk - Monitor serum electrolytes, CBC, WBC, temperature curve (4) SEBLE (acute kidney injury): Code(s): N17.9 - Acute kidney failure, unspecified Status: Acute Assessment and Plan: BUN/Cr 53/1.5 on am labs. Likely secondary to dehydration and rhabdomyolysis. - BUN/Cr 47/1.3 on am labs - Avoid nephrotoxic medications - Renally dose medications - Monitor intake/output (5) Diabetes: Code(s): E11.9 - Type 2 diabetes mellitus without complications Status: Acute Assessment and Plan: - hypoglycemia protocol - POC blood glucose ACHS - home medication - SSI TIDWM - correct regimen ordered - 6 units novology TIDWM - A1C 9.3 (6) Hypertension: Code(s): I10 - Essential (primary) hypertension Status: Acute Assessment and Plan: Chronic, currently holding home medications. - holding losartan 100 mg daily - resume as appropriate - monitor Time Spent With Patient Time with patient: Greater than 35 minutes Subjective Date/time seen: 08/19/24 07:33 Interval history: 68 year old male with past medical history of insulin-dependent diabetes, hypertension, hyperlipidemia presents to the hospital via EMS from home for generalized weakness and failure to thrive. Patient is pleasant lying comfortably in bed with his son at bedside. He had no complaints denying chest pain, shortness a breath, nausea /vomiting, abdominal pain, and muscle pain. Phone call was received from patient's nurse shanthi with concern of seizure-like activity. At the time of the episode the patient's son, a nursing home assistant administrator and an instructor were in the patient's room. Returned to patients room at that time. Per the patients son, the patient became extremely rigid having his eyes roll in the back of his head with his arms raised above his head and shaking. Patient did bite his tongue. He was incontinent of stool, however unsure if this occurred prior to episode or not. Son states that he appeared confused following the episode. He said this occurred for approximately 10 seconds then almost immediately recurred for another 10 seconds. Patient has no history of seizures. Discussed patient with Neurology Dr. Rizo and started patient on Keppra loading dose with maintenance dose to follow. Ordered an EEG and MRI. On exam, patient is AOx4. No slurred speech. No facial asymmetry. Neuro exam benign. Review of Systems Review of Systems: All systems reviewed & are unremarkable except as noted in HPI and below Exam Narrative: AF HR 70 RR 24 SpO2 98 BP 126/61 General: male in no acute respiratory distress who is nontoxic appearing, lying semi recumbent in bed. HEENT: Normocephalic. Atraumatic. Extraocular movement intact. Sclera clear and anicteric.No facial asymmetry. Chest: Lungs are clear to auscultation bilaterally. No wheezes or crackles. CV: Heart was regular rate and rhythm. S1/S2. No murmurs, gallops, or rubs. Abd: Abdomen was soft. Nontender. Nondistended. Positive bowel sounds. No organomegaly or masses. Ext: No clubbing, cyanosis, or edema. 2+ DP pulses bilaterally. Neuro: Patient is alert and oriented x4. Strength is 5/5 in both upper and lower extremities. Cranial nerves 2-12 are intact. Speech is clear. Objective Data Vital Signs Vital Signs: Vital Signs - 24 hr 08/18/24 18:26 08/18/24 19:30 08/18/24 21:40 Temperature 98.3 F Pulse Rate 72 82 73 Respiratory Rate 20 22 H 20 Blood Pressure 131/79 137/83 117/58 L Pulse Oximetry 93 99 100 Oxygen Delivery Room Air 08/18/24 23:38 08/19/24 00:28 08/19/24 04:15 Temperature 97.8 F 97.2 F L Pulse Rate 81 73 70 Respiratory Rate 17 20 24 H Blood Pressure 137/68 126/61 Pulse Oximetry 100 100 98 Oxygen Delivery Intake/Output Intake/Output: Intake & Output 08/16/24 08/17/24 08/18/24 08/19/24 23:59 23:59 23:59 23:59 Intake Total 1000 1100 Output Total 350 Balance 1000 750 Meds/Results Medications: Active Medications Generic Name Dose Route Start Last Admin Trade Name Freq PRN Reason Stop Dose Admin Al Hydrox/Mg Hydrox/Simethicone 30 ml 08/19/24 02:38 Mag Hydrox/Al Hydrox/Simeth 30 Ml Udc PO Q6H PRN Indigestion Enoxaparin Sodium 30 mg 08/19/24 09:00 Enoxaparin 30 Mg/0.3 Ml Syringe SUB-Q DAILY MATHEUS Sodium Chloride 1,000 mls @ 100 mls/hr 08/19/24 04:35 08/19/24 05:16 Normal Saline Iv IV CONT 100 mls/hr .Q10H MATHEUS Administration Insulin Aspart 6 units 08/19/24 08:00 Insulin Aspart (*Bkc) 100 Units/Ml 0.05 units/kg (6 units) SUB-Q TIDWM MATHEUS Miscellaneous Information 0 each 08/19/24 00:01 Gemtessa Nonform Can Pt Bring From Home? XX 09/18/24 00:00 CLARIFY [facility] Non-Formulary Medication 75 mg 08/19/24 09:00 Vibegron [Gemtesa] PO 09/18/24 08:59 DAILY [facility] Ondansetron HCl 4 mg 08/19/24 02:38 Ondansetron Inj 4 Mg/2 Ml Vial IV PUSH Q6H PRN Nausea And Vomiting Perflutren Lipid Microsphere 0 ml 08/19/24 02:36 Perflutren Lipid Microspheres 1.5 Ml Vial Diluted To 10 Ml Total Volume IV PUSH 08/22/24 02:37 ONCE PRN adequate visualization Protocol Polyethylene Glycol 17 gm 08/19/24 02:38 Polyethylene Glycol 3350 17 Gm Powd.Pack PO QAM PRN Constipation Pregabalin 200 mg 08/19/24 09:00 Pregabalin (*Crx) 50 Mg Capsule PO TID [facility] Rosuvastatin Calcium 10 mg 08/19/24 09:00 Rosuvastatin 10 Mg Tablet PO DAILY [facility] Radiology Results: ITS Impressions Chest X-Ray 08/18/24 19:03 IMPRESSION: 1. No acute cardiopulmonary disease. Head CT 08/18/24 21:30 IMPRESSION: 1. Normal aging brain. Foot X-Ray 08/18/24 22:42 IMPRESSION: 1. No evidence of osteomyelitis. Labs Labs: Laboratory Results - last 24 hr 08/18/24 08/18/24 08/18/24 18:49 19:35 20:02 WBC 17.4 H RBC 5.40 Hgb 16.7 Hct 49.5 MCV 91.7 MCH 30.9 MCHC 33.7 RDW 13.4 Plt Count 278 MPV 11.4 H Immature Gran % (Auto) 0.6 H Neut % (Auto) 85.4 H Lymph % (Auto) 4.2 L [place] % (Auto) 9.5 H Eos % (Auto) 0.1 Baso % (Auto) 0.2 Lymph # (Auto) 0.73 L [place] # (Auto) 1.7 H Eos # (Auto) 0.0 Baso # (Auto) 0.0 Abs Immat Gran (auto) 0.10 H Absolute Neuts (auto) 14.8 H Absolute Nucleated RBC 0.000 Nucleated RBC % 0.0 PT INR APTT Puncture Site ABG pH ABG pCO2 ABG pO2 ABG PO2/FiO2 Ratio ABG HCO3 ABG O2 Saturation ABG O2 Content ABG Base Excess A-a Gradient Oxyhemoglobin Total Hemoglobin O2 Delivery Device O2 Liters/Min FiO2 Sodium 129 L Potassium 4.8 Chloride 93 L Carbon Dioxide 21 L Anion Gap 15 H BUN 53 H Creatinine 1.50 H Estim Creat Clear Calc 53 Estimated GFR 47 L Glucose 337 H Lactic Acid Calcium 9.0 Total Bilirubin 2.3 H AST 198 H ALT 49 Alkaline Phosphatase 92 Total Creatine Kinase 6538 H Troponin I Total Protein 8.0 Albumin 4.2 Beta-Hydroxybutyrate/Acetoacetate TSH Urine Color Yellow Urine Appearance Clear Urine pH 5.0 Ur Specific [place] 1.025 Urine Protein 2+ H Urine Glucose (UA) 3+ H Urine Ketones Negative Ur Blood (Man) 1+ H Urine Nitrate Negative Urine Bilirubin Negative Urine Urobilinogen 1.0 Leukocyte Esterase Rfl Negative Urine RBC 0-2 Urine WBC 0-5 Ur Squamous Epith Cells None seen Urine Bacteria None seen Urine Casts 0-2 Ur Random Sodium 35 Urine Creatinine 145.4 Urine Opiates Screen Negative Urine Methadone Screen Negative Ur Barbiturates Screen Negative Ur Phencyclidine Scrn Negative Ur Amphetamine Screen Negative U Benzodiazepines Scrn Positive A Urine Cocaine Screen Negative U Cannabinoids Screen Positive A Ethyl Alcohol Influenza A (RT-PCR) Negative Influenza B (RT-PCR) Negative RSV (RT-PCR) Negative SARS-CoV-2 RNA (RT-PCR) Negative 08/18/24 08/18/24 08/19/24 20:47 20:59 00:40 WBC RBC Hgb Hct MCV MCH MCHC RDW Plt Count MPV Immature Gran % (Auto) Neut % (Auto) Lymph % (Auto) [place] % (Auto) Eos % (Auto) Baso % (Auto) Lymph # (Auto) [place] # (Auto) Eos # (Auto) Baso # (Auto) Abs Immat Gran (auto) Absolute Neuts (auto) Absolute Nucleated RBC Nucleated RBC % PT 15.9 H INR 1.2 APTT 30.0 Puncture Site Right radial ABG pH 7.430 ABG pCO2 29.4 L ABG pO2 75.8 L ABG PO2/FiO2 Ratio 3.61 ABG HCO3 19.1 L ABG O2 Saturation 95.7 ABG O2 Content 21.4 ABG Base Excess -3.7 A-a Gradient 38.7 Oxyhemoglobin 94.4 Total Hemoglobin 16.1 O2 Delivery Device Not Reportable O2 Liters/Min Not Reportable FiO2 21 Sodium Potassium Chloride Carbon Dioxide Anion Gap BUN Creatinine Estim Creat Clear Calc Estimated GFR Glucose Lactic Acid 2.1 H 2.3 H Calcium Total Bilirubin AST ALT Alkaline Phosphatase Total Creatine Kinase Troponin I < 0.012 Total Protein Albumin Beta-Hydroxybutyrate/Acetoacetate 0.44 H TSH 0.514 Urine Color Urine Appearance Urine pH Ur Specific [place] Urine Protein Urine Glucose (UA) Urine Ketones Ur Blood (Man) Urine Nitrate Urine Bilirubin Urine Urobilinogen Leukocyte Esterase Rfl Urine RBC Urine WBC Ur Squamous Epith Cells Urine Bacteria Urine Casts Ur Random Sodium Urine Creatinine Urine Opiates Screen Urine Methadone Screen Ur Barbiturates Screen Ur Phencyclidine Scrn Ur Amphetamine Screen U Benzodiazepines Scrn Urine Cocaine Screen U Cannabinoids Screen Ethyl Alcohol < 10 Influenza A (RT-PCR) Influenza B (RT-PCR) RSV (RT-PCR) SARS-CoV-2 RNA (RT-PCR) 08/19/24 05:15 WBC 15.8 H RBC 4.90 Hgb 14.8 Hct 45.1 MCV 92.0 MCH 30.2 MCHC 32.8 RDW 13.2 Plt Count 236 MPV 11.1 H Immature Gran % (Auto) 1.0 H Neut % (Auto) 82.1 H Lymph % (Auto) 5.2 L [place] % (Auto) 11.4 H Eos % (Auto) 0.1 Baso % (Auto) 0.2 Lymph # (Auto) 0.82 L [place] # (Auto) 1.8 H Eos # (Auto) 0.0 Baso # (Auto) 0.0 Abs Immat Gran (auto) 0.16 H Absolute Neuts (auto) 12.9 H Absolute Nucleated RBC 0.000 Nucleated RBC % 0.0 PT INR APTT Puncture Site ABG pH ABG pCO2 ABG pO2 ABG PO2/FiO2 Ratio ABG HCO3 ABG O2 Saturation ABG O2 Content ABG Base Excess A-a Gradient Oxyhemoglobin Total Hemoglobin O2 Delivery Device O2 Liters/Min FiO2 Sodium 129 L Potassium 4.4 Chloride 94 L Carbon Dioxide 25 Anion Gap 10 BUN 47 H Creatinine 1.30 Estim Creat Clear Calc 61 Estimated GFR 55 L Glucose 292 H Lactic Acid Calcium 8.4 Total Bilirubin AST ALT Alkaline Phosphatase Total Creatine Kinase 5698 H Troponin I Total Protein Albumin Beta-Hydroxybutyrate/Acetoacetate TSH Urine Color Urine Appearance Urine pH Ur Specific [place] Urine Protein Urine Glucose (UA) Urine Ketones Ur Blood (Man) Urine Nitrate Urine Bilirubin Urine Urobilinogen Leukocyte Esterase Rfl Urine RBC Urine WBC Ur Squamous Epith Cells Urine Bacteria Urine Casts Ur Random Sodium Urine Creatinine Urine Opiates Screen Urine Methadone Screen Ur Barbiturates Screen Ur Phencyclidine Scrn Ur Amphetamine Screen U Benzodiazepines Scrn Urine Cocaine Screen U Cannabinoids Screen Ethyl Alcohol Influenza A (RT-PCR) Influenza B (RT-PCR) RSV (RT-PCR) SARS-CoV-2 RNA (RT-PCR) Quality VTE Prophylaxis VTE prophylaxis: pharmacologic ordered
[2024-08-19] MEDS: ROSUVASTATIN 10 MG TABLET PO (08:06)
[2024-08-19] MEDS: ENOXAPARIN 30 MG/0.3 ML SYRINGE SUB-Q (08:06)
[2024-08-19] MEDS: PREGABALIN (*CRX) 50 MG CAPSULE 200 MG PO (08:06)
[2024-08-19 08:31] LABS: Glucose Point of Care 281 mg/dl (65-105)
[2024-08-19] MEDS: INSULIN ASPART (*BKC) 100 UNITS/ML 6 UNITS SUB-Q ×3 (08:42→16:06)
[2024-08-19 08:49] LABS: Hemoglobin A1C 9.3 % (<5.7)
[2024-08-19 12:01] LABS: Glucose Point of Care 254 mg/dl (65-105)
[2024-08-19 12:34] LABS: Glucose Point of Care 269 mg/dl (65-105)
[2024-08-19] MEDS: levETIRAcetam 1500MG/NACL100ML 1,500 MG/100 ML BAG 400 MG IVPB (12:54)
[2024-08-19 13:01] LABS: Lactic Acid Reflex 2.2 mmol/L (0.7-2.0)
--- NOTE | 2024-08-19 14:08 | WPDNEURCNPN ---
Assessment and Plan Assessment and plan (1) Hypertension: Code(s): I10 - Essential (primary) hypertension Status: Acute (2) Diabetes: Code(s): E11.9 - Type 2 diabetes mellitus without complications Status: Acute (3) Fall: Code(s): W19.XXXA - Unspecified fall, initial encounter Status: Acute (4) Obesity (BMI 30-39.9): Code(s): E66.9 - Obesity, unspecified Status: Acute (5) Ulcer of right foot due to type 2 diabetes mellitus: Code(s): E11.621 - Type 2 diabetes mellitus with foot ulcer; L97.519 - Non-pressure chronic ulcer of other part of right foot with unspecified severity Status: Acute (6) Failure to thrive: Status: Acute (7) Rhabdomyolysis: Qualifiers: Rhabdomyolysis type: non-traumatic Qualified Code(s): M62.82 - Rhabdomyolysis Code(s): M62.82 - Rhabdomyolysis Status: Acute Plan 1. Diabetes mellitus with foot ulcer but negative x-rays of the bone without any osteomyelitis 2. Diabetic neuropathy metabolic syndrome and numbers for initial change in mental status but at this stage able to follow the verbal commands appropriately plan is to evaluate for all the metabolic abnormalities and will need the long-term placement the ongoing physical therapy and good medical care thank Consult date: 08/19/24 HPI: Rashid Mullen II is a 68 year old male admitted to the hospital for the complaints of generalized weakness over the last several days duration along with the difficulties in taking care of himself and reportedly history of fall or being found sitting in the recliner with soil pants by his son. Patient reportedly has been sitting in the recliner for several days and was unable to get a because of the complaints of weakness he has been walking with the walker at home patient's son reportedly concerned about patient unable to take care of himself at home. At the time of visit to the emergency room his medications were listed at alprazolam 0.5mg twice a day p.r.n. for anxiety, duloxetine 60mg daily, insulin, losartan 100mg daily, pregabalin 200mg 3 times a day rosuvastatin 10mg daily vibegron 75mg daily. Patient reportedly not allergic to any medication. Has ongoing history of being former smoker with use of crack cocaine. On initial examination was found to be chronically ill in no obvious acute distress healing abrasion to the left elbow with full range of motion no sacral or issue all wounds but there was 1cm chronic wound to the plantar aspect right foot with no surrounding cellulitis he was able to move all the 4 extremities fairly well his vital signs were normal CBC revealed no leukocytosis as Denise 6 revealed hyponatremia with sodium 129 and blood sugar of 292 UA was abnormal proteinuria glycosuria and hematuria urine benzodiazepine was positive he was negative for the influenza a B RSV and [id number] alcohol levels were less than 10, subsequently foot x-rays negative for osteomyelitis where the ulcer was seen. CT scan of the brain is negative with no intracranial bleed or hydrocephalus, chest x-ray negative, Review of Systems Review of Systems: All systems reviewed & are unremarkable except as noted in HPI and below PMFSH Family History Family History Other Unknown family medical history Social History Social History Smoking status: Former smoker Substance use: former Substance use type: crack/cocaine Do You Feel Safe in your Home?: Yes Lack of Transportation: No Lack of Food: Never True Current Housing: I Have Housing Concerned About Future Housing: No Difficulty Paying Gas/Electric Bills: No Difficulty Paying for Meds: YES Currently Unemployed: No Education: High School Diploma/GED Difficulty w/ Childcare or Family Care: No Spiritual care concerns: No Meds Home Medications and Allergies Home Medications Medication Instructions Recorded Confirmed Type alprazolam 0.5 mg tablet 0.5 mg PO BID PRN Anxiety 08/18/24 08/18/24 History duloxetine 60 mg capsule,delayed 60 mg PO DAILY 08/18/24 08/18/24 History release insulin aspart U-100 100 unit/mL See Rx Instructions .Route 08/18/24 08/18/24 History (3 mL) subcutaneous pen (Novolog .COMPLEX PRN Hyperglycemia FlexPen U-100 Insulin aspart) insulin degludec 200 unit/mL (3 See Rx Instructions .Route .COMPLEX 08/18/24 08/18/24 History mL) subcutaneous pen (Tresiba FlexTouch U-200 insulin) losartan 100 mg tablet 100 mg PO DAILY 08/18/24 08/18/24 History pregabalin 200 mg capsule 200 mg PO TID 08/18/24 08/18/24 History rosuvastatin 10 mg tablet 10 mg PO DAILY 08/18/24 08/18/24 History vibegron 75 mg tablet (Gemtesa) 75 mg PO DAILY 08/18/24 08/18/24 History Allergies Allergy/AdvReac Type Severity Reaction Status Date / Time No Known Allergies Allergy Verified 08/18/24 19:34 Vital Signs Vital Signs - 24 hr 08/18/24 18:26 08/18/24 19:30 08/18/24 21:40 Temperature 36.8 C Pulse Rate 72 82 73 Respiratory Rate 20 22 H 20 Blood Pressure 131/79 137/83 117/58 L Pulse Oximetry 93 99 100 Oxygen Delivery Room Air 08/18/24 23:38 08/19/24 00:28 08/19/24 04:15 Temperature 36.6 C 36.2 C L Pulse Rate 81 73 70 Respiratory Rate 17 20 24 H Blood Pressure 137/68 126/61 Pulse Oximetry 100 100 98 Oxygen Delivery 08/19/24 08:06 08/19/24 13:05 Temperature Pulse Rate Respiratory Rate Blood Pressure Pulse Oximetry Oxygen Delivery Room Air Room Air Exam Narrative: exam today revealed him to be awake alert cooperative in no obvious acute distress head normocephalic with no cranial bruits, ear nose throat examination normal, neck supple with no meningeal signs, neck supple with no cervical bruit, heart regular lungs without rhonchi or crepitations, abdomen soft distended protuberant no organomegaly, his skin clear neurologically he is awake alert able to follow the verbal commands, his speech of low volume but not dysphasic not dysarthric, pupils round regular [place] of vision full to threat stimuli, extraocular movements are full with no nystagmus, facial sensation intact face symmetrical, tongue midline with no fasciculation, is laying in bed with protuberant belly not much movements unable to sit stand or walk reflexes are completely absent plantar responses are downgoing decreased sensation distally in both lower extremities Results Labs 08/19/24 05:15 08/19/24 05:15 Labs: Short CBC 08/18/24 08/19/24 Range/Units 18:49 05:15 WBC 17.4 H 15.8 H (4.5-10.0) K/mm3 Hgb 16.7 14.8 (14.0-18.0) g/dL Hct 49.5 45.1 (42.0-52.0) % Plt Count 278 236 (150-375) k/mm3 BMP 08/18/24 08/19/24 18:49 05:15 Sodium 129 L 129 L Potassium 4.8 4.4 Chloride 93 L 94 L Carbon Dioxide 21 L 25 BUN 53 H 47 H Creatinine 1.50 H 1.30 Glucose 337 H 292 H Calcium 9.0 8.4 Cardiac Enzymes 08/18/24 08/18/24 08/19/24 Range/Units 18:49 20:59 05:15 Total Creatine Kinase 6538 H 5698 H (55-170) U/L Troponin I < 0.012 (0.000-0.034) ng/mL Liver Function 08/18/24 Range/Units 18:49 Total Bilirubin 2.3 H (0.2-1.3) mg/dL AST 198 H (17-59) U/L ALT 49 (6-50) U/L Alkaline Phosphatase 92 (38-126) U/L Albumin 4.2 (3.5-5.1) g/dL Urine 08/18/24 Range/Units 20:02 Urine Color Yellow (Yellow) Urine Appearance Clear (Clear) Urine pH 5.0 (5.0-9.0) Ur Specific [place] 1.025 (1.001-1.035) Urine Protein 2+ H (Negative) mg/dL Urine Glucose (UA) 3+ H (Negative) mg/dL
--- NOTE | 2024-08-19 14:36 | PC.NURSE ---
On 08/19/24, the student, [Brandie Chaparro], provided care and completed [facility] documentation on this patient. I have reviewed the student's documentation and agree with the findings.
[2024-08-19] MEDS: LORazepam INJ (*CRX) 2 MG/ML VIAL IM (15:01)
--- NOTE | 2024-08-19 15:24 | PC.NURSE ---
This patient, Rashid Mullen II, was received from [facility] on 08/19/24 at 1524. Patient/family oriented to unit policies and routines
[2024-08-19 15:47] LABS: Glucose Point of Care 239 mg/dl (65-105)
[2024-08-19] MEDS: levETIRAcetam 500MG/NACL 100ML 500 MG/100 ML BAG 400 MG IVPB (15:47)
[2024-08-19 15:48] LABS: Reflex Lactic Acid Yes or No Add Lactic
[2024-08-19 16:29] LABS: Lactic Acid 1.6 mmol/L (0.7-2.0)
[2024-08-19 20:18] LABS: Glucose Point of Care 86 mg/dl (65-105)
[2024-08-19] MEDS: levETIRAcetam IV 750 MG in DEXTROSE 5% 100 ML 430 MG IVPB (20:19)
[2024-08-20] VITALS (15 sets, daily range): BP systolic 97–132; BP diastolic 54–76; PULSE 69–86; RESP 18–26; TEMP 36.5–38.1; O2SAT 93–100
--- NOTE | 2024-08-20 | ECHO_ITS ---
Patient Info Name: Rashid Mullen Age: 68 years : 1955 Gender: Male Ht: 67 in Wt: 263 lbs BSA: 2.43 m2 HR: 80 bpm BP: 104 / 59 mmHg Technical Quality: Poor Exam Date: 08/20/2024 11:21 AM Exam Location: Echo Lab Patient Status: Inpatient Admit Date: 08/20/2024 Staff Ordering Physician: Jennifer Hammond MD Alteration Manager: Natalya Hernandez RDCS Attending Provider: Elli Iqbal PA-C Referring Physician: Manish WEINBERG; Exam Type: CA echo dop color flow w con Study Info Indications N17.8 - Other acute kidney failure Complete two-dimensional, color flow and Doppler transthoracic echocardiogram is performed with contrast to opacify the left ventricle and to improve the deliniation of the left ventricle endocardial borders. Contrast/Agitated Saline Contrast/Ag. Saline: Definity Amount: 4.00 ml Existing IV Access: Yes IV Access Condition: patent with no signs of infiltration Reason for Poor Study: patient body habitus Summary 1. Left ventricular chamber dimension is normal. 2. Left ventricular wall thickness is normal. 3. Left ventricular systolic function is normal with an estimated ejection fraction of 60-65%. 4. Right ventricular chamber dimension is normal. 5. Right ventricular systolic function is normal. 6. There is no mitral valve regurgitation. 7. There is no aortic valve stenosis with a peak velocity of 184.82 cm/s, mean gradient of 7 mmHg, and aortic valve area of 3.32 cm2. Left Ventricle Left ventricular chamber dimension is normal. Left ventricular wall thickness is normal. Left ventricular systolic function is normal with an estimated ejection fraction of 60-65%. The left ventricular diastolic function is grade I diastolic dysfunction. Right Ventricle Right ventricular chamber dimension is normal. Right ventricular systolic function is normal. Left Atria Left atrial chamber dimension is normal. Right Atria Right atrial chamber dimension is normal. Aortic Valve Aortic valve is not well visualized. There is no aortic valve stenosis with a peak velocity of 184.82 cm/s, mean gradient of 7 mmHg, and aortic valve area of 3.32 cm2. There is no aortic valve regurgitation. Mitral Valve Mitral valve is not well visualized. There is no mitral valve regurgitation. Tricuspid Valve There is mild tricuspid valve regurgitation. No pulmonary hypertension, estimated pulmonary arterial systolic pressure is 35 mmHg. Pericardium/Pleural The pericardium appears thickened pericardium. Inferior Vena Cava Normal inferior vena cava with >50% collapse upon inspiration consistent with normal right atrial pressure, 3 mmHg. Aorta The prox ascending aorta size is normal. The aortic root size at the sinus of Valsalva is normal. Left Ventricular Outflow Tract Name Value Normal LVOT 2D LVOT Diameter 2.05 cm LVOT Doppler LVOT Peak Gradient 9 mmHg LVOT Mean Gradient 6 mmHg LVOT VTI 29.44 cm LVOT VTI/AV VTI Ratio 1.01 LVOT Stroke Volume 97.02 ml LVOT CO 7.11 l/min LVOT CI 2.92 L/min/m2 Pulmonic Valve Name Value Normal PV Doppler PV Peak Gradient 5 mmHg Mitral Valve Name Value Normal MV Doppler MV Decel Baldwin 375.63 cm/s2 MV PHT 0 s MV Area (PHT) 3.44 cm2 4.00-5.00 MV Diastolic Function MV E Peak Velocity 82.84 cm/s MV A Peak Velocity 88.62 cm/s MV E/A 0.93 MV Decel Time 0 s Tricuspid Valve Name Value Normal TV Regurgitation Doppler TR Peak Velocity 273.31 cm/s TR Peak Gradient 30 mmHg Estimated PAP/RSVP RA Pressure 3 mmHg <=5 PA Systolic Pressure 35 mmHg <36 RV Systolic Pressure 33 mmHg <36 Aorta Name Value Normal Ascending Aorta Ao Root Diameter (MM) 2.29 cm Ao Root Diam Index (MM) 0.94 cm/m2 Aortic Valve Name Value Normal AV Doppler AV Peak Velocity 184.82 cm/s AV Peak Gradient 14 mmHg AV Mean Gradient 7 mmHg AV VTI 29.21 cm AV Area (Cont Eq VTI) 3.32 cm2 >=3.00 AV Area (Cont Eq Leonel) 2.72 cm2 AV Regurgitation 2D LVOT Area 3.30 cm2 Ventricles Name Value Normal LV Dimensions 2D/MM IVS Diastolic Thickness (2D) 0.77 cm 0.60-1.00 IVS Diastole Thickness (MM) 0.96 cm 0.60-1.00 LVID Diastole (2D) 2.01 cm 4.20-5.80 LVID Diastole (MM) 5.85 cm 4.20-5.80 LVIW Diastolic Thickness (2D) 0.84 cm 0.60-1.00 LVIW Diastolic Thickness (MM) 0.82 cm 0.60-1.00 LVID Systole (2D) 1.78 cm 2.50-4.00 LVID Systole (MM) 4.28 cm 2.50-4.00 LVOT Diameter 2.05 cm LV Mass (2D Cubed) 33.33 g 88.00-224.00 LV Mass Index (2D Cubed) 0.00 g/cm2 0.00-0.01 Relative Wall Thickness (2D) 0.84 LV Mass (MM Cubed) 203.87 g 88.00-224.00 LV Mass Index (MM Cubed) 0.01 g/cm2 0.00-0.01 Relative Wall Thickness (MM) 0.28 LV Fractional Shortening/Ejection Fraction 2D/MM LV Fractional Shortening (2D) 11 % 25-43 LV Fractional Shortening (MM) 27 % 25-43 LV EF (MM Teicholz) 52 % 52-72 LV EF (2D Teicholz) 27 % 52-72 LV Diastolic Volume (4C MOD) 57.70 ml LV EF (4C MOD) 69 % LV Diastolic Length (4C) 8.12 cm LV Systolic Length (4C) 5.97 cm LV Stroke Volume (4C MOD) 39.58 ml Atria Name Value Normal LA Dimensions LA Dimension (MM) 4.42 cm 3.00-4.10 LA Volume (4C A-L) 27.42 ml LA Volume (BP A-L) 34.93 ml Report Signatures
[2024-08-20] MEDS: SODIUM CHLORIDE 0.9% IV 1,000 ML 100 ML IV CONT ×2 (02:53→13:47)
[2024-08-20 07:35] LABS: Glucose Point of Care 121 mg/dl (65-105)
[2024-08-20 09:12] LABS: Basophils Percent Auto 0.3 % (0.2-1.2); Eosinophils Absolute Auto 0.1 K/mm3 (0-0.3); Eosinophils Percent Auto 0.7 % (0-4.4); Hematocrit 44.8 % (42.0-52.0); Hemoglobin 14.7 g/dL (14.0-18.0); Immature Granulocyte Percent A 0.8 % (0-0.5); Lymphocytes Absolute Auto 1.05 K/mm3 (0.9-3.2); Lymphocytes Percent Auto 8.3 % (18.3-44.2); Mean Corpuscular HGB Conc 32.8 g/dl (32-36); Mean Corpuscular Hemoglobin 30.9 pg (26-34); Mean Corpuscular Volume 94.3 fl (80-100); Mean Platelet Volume 10.8 fl (7.4-10.4); Monocytes Absolute Auto 1.5 K/mm3 (0.1-0.6); Monocytes Percent Auto 11.5 % (2.6-8.5); Neutrophils Percent Auto 78.4 % (45.5-73.1); Platelet Count Result 216 k/mm3 (150-375); Red Blood Count 4.75 M/mm3 (4.6-6.20); Red Cell Distribution Width 13.1 % (11.5-14.5); White Blood Count 12.7 K/mm3 (4.5-10.0)
--- NOTE | 2024-08-20 09:44 | P.NEURO_ITS ---
Neurology EEG Report General Information Date of Study: 08/20/24 TEST Eeg DIAGNOSIS seizure-like activity CONDITION OF RECORDING awake drowsy and asleep. EEG NUMBER [id number] CLINICAL HISTORY patient was brought into the hospital for extreme weakness and unable to get up on his own. While here he had an episode of seizure-like activity. EEG DESCRIPTION Basic resting occipital frequency consists of low to medium voltage 8 to 9 hertz per 2nd alpha admixed with low-voltage 15 to 18 hertz per 2nd beta. Low- voltage beta activity seen diffusely admixed with waxing and waning posterior alpha rhythm during drowsiness. Bilateral symmetrical sleep activity is noted during sleep with symmetrical sleep spindles. Hyperventilation not done. Photic stimulation not done. Non paroxysmal. Nonfocal. Nonlateralizing. IMPRESSION Normal record during wakefulness drowsiness and sleep. Normal EEG does not rule out the possibility of seizures clinical correlation recommended.
[2024-08-20] MEDS: PREGABALIN (*CRX) 50 MG CAPSULE 200 MG PO ×3 (09:53→17:56)
[2024-08-20] MEDS: ROSUVASTATIN 10 MG TABLET PO (09:53)
[2024-08-20] MEDS: levETIRAcetam IV 750 MG in DEXTROSE 5% 100 ML 430 MG IVPB ×2 (09:54→21:51)
[2024-08-20] MEDS: ENOXAPARIN 40 MG/0.4 ML SYRINGE SUB-Q (09:54)
[2024-08-20] MEDS: INSULIN GLARGINE (*BKC) 100 UNITS/ML 20 UNITS SUB-Q (09:54)
--- NOTE | 2024-08-20 09:58 | P.CONIN_ITS ---
Assessment and Plan Assessment and plan (1) Seizure-like activity: Code(s): R56.9 - Unspecified convulsions Status: Acute Assessment and Plan: Patient had this seizure-like activity yesterday each lasting 10 seconds and received Ativan. No recurrence after transferred to ICU from yesterday afternoon. CT scan and brain MRI reviewed EEG was done and pending Neurology is following Continue Keppra Continue seizure precautions and p.r.n. Ativan Patient is AO x3 and is asymptomatic at this time with no concern for of meningitis encephalitis (2) Diabetes: Code(s): E11.9 - Type 2 diabetes mellitus without complications Status: Acute Assessment and Plan: Continue with meal insulin. I will add Lantus and also sliding scale (3) SEBLE (acute kidney injury): Code(s): N17.9 - Acute kidney failure, unspecified Status: Acute Assessment and Plan: Creatinine has improved. Continue IV fluids. Continue monitor urine output electrolytes and creatinine (4) Rhabdomyolysis: Qualifiers: Rhabdomyolysis type: non-traumatic Qualified Code(s): M62.82 - Rhabdomyolysis Code(s): M62.82 - Rhabdomyolysis Status: Acute Assessment and Plan: CK is improving. Continue IV fluids (5) Ulcer of right foot due to type 2 diabetes mellitus: Code(s): E11.621 - Type 2 diabetes mellitus with foot ulcer; L97.519 - Non-pressure chronic ulcer of other part of right foot with unspecified severity Status: Acute Assessment and Plan: Foot x-ray was negative for any evidence of osteomyelitis on exam. The wound does not appear infected. Blood cultures are ordered and negative till now. Continue local wound dressing as per wound care recommendations Plan DVT prophylaxis -Lovenox Nutrition -diabetic diet Code Status - Full Code Transfer out of ICU today Area Secretary Consult Note Consult date: 08/20/24 Reason for consult: Seizures HPI: Rashid Mullen II is a 68 year old male with past medical history of diabetes and obesity with diabetic complications including peripheral neuropathy and diabetic ulcer of the right foot who appears to be fairly noncompliant with his medications was brought in on by EMS after his son convinced him to go to the hospital. He has been sitting in a chair for few days peeing on himself and not eating or drinking much. He states he was too weak to get up and his legs were weak. He has had back surgery in the past and has neuropathy with altered sensation. He denies any fever chest pain nausea vomiting abdominal pain diarrhea constipation dizziness lightheadedness loss of consciousness. He was not able to tell me exactly how much insulin and how frequently he administers himself. He also does not check his sugar blood sugars frequently. His son states the patient was once taken to the hospital for possible stroke. Workup in the ER showed the patient was in rhabdomyolysis with CK of 6000 elevated creatinine and BUN and other electrolyte abnormality. Beta hy droxybutyrate was slightly positive. Urine toxicology was negative for cannabinoids and benzos. He was tested negative for PCR of influenza COVID RSV. Head CT and chest x-ray were negative. Foot x-ray was negative any evidence of osteomyelitis. He was admitted on the floor and was started on IV fluids and subcutaneous insulin. His foot wound was assessed by wound care. His CK level in creatinine improved with IV fluids. Yesterday patient had 3 episodes of seizures within 5-10 minute went to each lasting 5-10 seconds. These were reported by patient's son who was at bedside who stated the patient became rigid with eyes rolled up and arms upright along with shaking of both arms. Patient was given Ativan was started on Keppra. Neurology was consulted. Head CT was negative on presentation an MRI was ordered. Patient was transferred to ICU for closer monitoring. This morning when I evaluated the patient he has not had any other recurrence of seizures in the ICU. He states he feels fine and is eating breakfast. He denies any new complaints. He states that is his foot wound has been there for a long time. He admitted that he cannot get up and his legs are weak and cannot hold his weight. He is AO x3 and admits noncompliance with his medications. All other systems were reviewed and were negative Review of Systems Review of Systems: All systems reviewed & are unremarkable except as noted in HPI and below (HPI) [facility] Past Medical History Medical History (Updated 08/20/24 @ 10:04 by Rolan Gu MD) Diabetes Obesity (BMI 30-39.9) Peripheral neuropathy Ulcer of right foot due to type 2 diabetes mellitus Surgical History Surgical History (Updated 08/20/24 @ 10:04 by Rolan Gu MD) History of back surgery Family History Family History Other Unknown family medical history Social History Social History Smoking status: Former smoker Substance use: former Substance use type: crack/cocaine Do You Feel Safe in your Home?: Yes Lack of Transportation: No Lack of Food: Never True Current Housing: I Have Housing Concerned About Future Housing: No Difficulty Paying Gas/Electric Bills: No Difficulty Paying for Meds: YES Currently Unemployed: No Education: High School Diploma/GED Difficulty w/ Childcare or Family Care: No Spiritual care concerns: No Meds Home Medications and Allergies Home Medications Medication Instructions Recorded Confirmed Type alprazolam 0.5 mg tablet 0.5 mg PO BID PRN Anxiety 08/18/24 08/18/24 History duloxetine 60 mg capsule,delayed 60 mg PO DAILY 08/18/24 08/18/24 History release insulin aspart U-100 100 unit/mL See Rx Instructions .Route 08/18/24 08/18/24 History (3 mL) subcutaneous pen (Novolog .COMPLEX PRN Hyperglycemia FlexPen U-100 Insulin aspart) insulin degludec 200 unit/mL (3 See Rx Instructions .Route .COMPLEX 08/18/24 History mL) subcutaneous pen (Tresiba FlexTouch U-200 insulin) losartan 100 mg tablet 100 mg PO DAILY 08/18/24 08/18/24 History pregabalin 200 mg capsule 200 mg PO TID 08/18/24 08/18/24 History rosuvastatin 10 mg tablet 10 mg PO DAILY 08/18/24 08/18/24 History vibegron 75 mg tablet (Gemtesa) 75 mg PO DAILY 08/18/24 08/18/24 History Allergies Allergy/AdvReac Type Severity Reaction Status Date / Time No Known Allergies Allergy Verified 08/18/24 19:34 Vital Signs Vital Signs - 24 hr 08/19/24 13:05 08/19/24 14:00 08/19/24 18:00 Temperature 36.3 C L Pulse Rate 83 79 Respiratory Rate 16 Blood Pressure 113/52 L Pulse Oximetry 97 Oxygen Delivery Room Air Oxygen Flow Rate 08/19/24 18:00 08/19/24 16:00 08/19/24 20:00 Temperature 37.4 C 37.7 C H Pulse Rate 79 72 69 Respiratory Rate 23 H 23 H Blood Pressure 125/76 102/58 L Pulse Oximetry 93 97 Oxygen Delivery Oxygen Flow Rate 08/19/24 20:00 08/19/24 20:25 08/19/24 22:00 Temperature Pulse Rate 70 70 81 Respiratory Rate 23 H Blood Pressure Pulse Oximetry 97 Oxygen Delivery Nasal Cannula Oxygen Flow Rate 2 08/19/24 22:00 08/20/24 00:00 08/20/24 00:00 Temperature 38.1 C H Pulse Rate 86 86 74 Respiratory Rate 23 H 23 H Blood Pressure 106/64 Pulse Oximetry 95 95 Oxygen Delivery Nasal Cannula Oxygen Flow Rate 2 08/20/24 00:00 08/20/24 02:00 08/20/24 02:00 Temperature 38.1 C H 38.1 C H Pulse Rate 74 69 69 Respiratory Rate 24 H 26 H Blood Pressure 104/61 99/56 L Pulse Oximetry 93 94 Oxygen Delivery Oxygen Flow Rate 08/20/24 04:00 08/20/24 04:15 08/20/24 04:00 Temperature 37.8 C H Pulse Rate 69 69 69 Respiratory Rate 23 H 23 H Blood Pressure 97/58 L Pulse Oximetry 95 95 Oxygen Delivery Nasal Cannula Oxygen Flow Rate 2 08/20/24 06:00 08/20/24 06:00 08/20/24 08:00 Temperature 37.6 C 37.4 C Pulse Rate 73 73 69 Respiratory Rate 18 24 H Blood Pressure 116/62 105/54 L Pulse Oximetry 97 98 Oxygen Delivery Oxygen Flow Rate Exam Narrative: General: Pt is alert awake and in NAD Lungs/Chest: Trachea central Clear BS B/L, No crackles or wheezing. Cardiac: RRR. Normal S1 S2. No murmurs Circulation: Pedal pulses are intact and symmetrical. Abdomen: Normal bowel sounds. Obese. Soft. NT. ND. Extremities: No clubbing, cyanosis or edema. Warm : Paz in place Neurologic: Follows commands. Moves all 4 extremities PERRL AO x3 decreased sensation to touch in both feet. Skin: Small circular ulcer on right right foot with clear discharge. No redness or erythema surrounding it. Both feet are warm Results Labs 08/20/24 08:54 08/20/24 08:54 Labs: Impressions Renal Ultrasound 08/19/24 14:06 IMPRESSION: Right kidney is not visualized. The left kidney is normal. Brain MRI 08/19/24 17:32 IMPRESSION: 1. Mild nonspecific cerebral white matter disease and pontine disease, which likely represents chronic small vessel ischemic disease. Short CBC 08/20/24 Range/Units 08:54 WBC 12.7 H (4.5-10.0) K/mm3 Hgb 14.7 (14.0-18.0) g/dL Hct 44.8 (42.0-52.0) % Plt Count 216 (150-375) k/mm3 Quality VTE Prophylaxis VTE prophylaxis: pharmacologic ordered Hospitalist [facility] Advance Care Plan I have confirmed that the patient's Advanced Care Plan is present, code status is documented, or surrogate decision maker is listed in patient medical record.: Yes Medication Reconciliation I have utilized all available resources to obtain, update and review the patients current medications (includes all prescriptions, OTC, herbals, cannabis, and nutritional supplements).: Yes
[2024-08-20 10:20] LABS: Alanine Aminotransferase 40 U/L (6-50); Albumin Level 2.9 g/dL (3.5-5.1); Alkaline Phosphatase 83 U/L (38-126); Anion Gap 8 mmol/L (4-12); Aspartate Amino Transferase 137 U/L (17-59); Bilirubin,Total 1.3 mg/dL (0.2-1.3); Blood Urea Nitrogen 37 mg/dL (9-20); Carbon Dioxide 22 mmol/L (22-30); Chloride 105 mmol/L (98-107); Estimated CRCL calculation 67 ml/min; Estimated Glomerular Filt Rate > 60; Glucose 127 mg/dL (65-110); Magnesium 2.6 mg/dL (1.6-2.3); Potassium 4.4 mmol/L (3.4-5.0); Sodium 135 mmol/L (137-145)
--- NOTE | 2024-08-20 10:29 | PCSTNOTE ---
Please refer to the Bedside Swallow Evaluation in the EMR. Please note, silent aspiration cannot be ruled out at bedside.
[2024-08-20] MEDS: PERFLUTREN LIPID MICROSPHERES 1.5 ML VIAL DILUTED TO 10 ML TOTAL VOLUME IV PUSH (11:50)
[2024-08-20 11:59] LABS: Creatine Kinase 3437 U/L (55-170)
[2024-08-20 12:42] LABS: Glucose Point of Care 199 mg/dl (65-105)
[2024-08-20] MEDS: INSULIN ASPART (*BKC) 100 UNITS/ML 6 UNITS SUB-Q ×2 (13:48→18:00)
[2024-08-20 17:04] LABS: Glucose Point of Care 148 mg/dl (65-105)
[2024-08-20 21:21] LABS: Glucose Point of Care 232 mg/dl (65-105)
[2024-08-21] VITALS (16 sets, daily range): BP systolic 126–132; BP diastolic 52–68; PULSE 68–81; RESP 18–26; TEMP 36.2–37.3; O2SAT 95–100
[2024-08-21 04:51] LABS: Hematocrit 41.7 % (42.0-52.0); Hemoglobin 14.3 g/dL (14.0-18.0); Mean Corpuscular HGB Conc 34.3 g/dl (32-36); Mean Corpuscular Volume 90.5 fl (80-100); Mean Platelet Volume 10.9 fl (7.4-10.4); Platelet Count Result 219 k/mm3 (150-375); Red Blood Count 4.61 M/mm3 (4.6-6.20); Red Cell Distribution Width 13.1 % (11.5-14.5); White Blood Count 10.7 K/mm3 (4.5-10.0)
[2024-08-21 05:00] LABS: Alanine Aminotransferase 35 U/L (6-50); Albumin Level 3.1 g/dL (3.5-5.1); Alkaline Phosphatase 78 U/L (38-126); Anion Gap 6 mmol/L (4-12); Aspartate Amino Transferase 80 U/L (17-59); Bilirubin,Total 0.9 mg/dL (0.2-1.3); Blood Urea Nitrogen 32 mg/dL (9-20); Carbon Dioxide 23 mmol/L (22-30); Chloride 103 mmol/L (98-107); Creatine Kinase 1203 U/L (55-170); Estimated CRCL calculation 68 ml/min; Estimated Glomerular Filt Rate > 60; Glucose 199 mg/dL (65-110); Magnesium 2.5 mg/dL (1.6-2.3); Potassium 3.7 mmol/L (3.4-5.0); Sodium 132 mmol/L (137-145)
[2024-08-21] MEDS: SODIUM CHLORIDE 0.9% IV 1,000 ML 100 ML IV CONT ×2 (06:47→15:31)
[2024-08-21 08:49] LABS: Glucose Point of Care 199 mg/dl (65-105)
[2024-08-21] MEDS: ENOXAPARIN 40 MG/0.4 ML SYRINGE SUB-Q (09:00)
[2024-08-21] MEDS: INSULIN ASPART (*BKC) 100 UNITS/ML 6 UNITS SUB-Q ×3 (09:20→16:56)
[2024-08-21] MEDS: INSULIN GLARGINE (*BKC) 100 UNITS/ML 10 UNITS SUB-Q (09:21)
[2024-08-21] MEDS: PREGABALIN (*CRX) 50 MG CAPSULE 200 MG PO ×3 (09:22→16:54)
[2024-08-21] MEDS: levETIRAcetam IV 750 MG in DEXTROSE 5% 100 ML 430 MG IVPB ×2 (09:22→20:41)
[2024-08-21 11:59] LABS: Glucose Point of Care 229 mg/dl (65-105)
[2024-08-21] MEDS: INSULIN ASPART (*BKC) 100 UNITS/ML SUB-Q ×2 (12:11→16:55)
--- NOTE | 2024-08-21 12:21 | WPDNEUROPN ---
Progress Note: A&P Assessment and Plan (1) Seizure-like activity: Code(s): R56.9 - Unspecified convulsions Status: Acute (2) Fall: Code(s): W19.XXXA - Unspecified fall, initial encounter Status: Acute Assessment and Plan: Patient does have poor balance and tends to fall at home. This has been attributed to diabetic polyneuropathy. He also had a surgeon the lumbar spine. (3) Diabetic polyneuropathy: Code(s): E11.42 - Type 2 diabetes mellitus with diabetic polyneuropathy Status: Acute (4) Rhabdomyolysis: Qualifiers: Rhabdomyolysis type: non-traumatic Qualified Code(s): M62.82 - Rhabdomyolysis Code(s): M62.82 - Rhabdomyolysis Status: Acute (5) Obesity (BMI 30-39.9): Code(s): E66.9 - Obesity, unspecified Status: Acute (6) H/O lumbosacral spine surgery: Code(s): Z98.890 - Other specified postprocedural states Status: Acute (7) Ulcer of right foot due to type 2 diabetes mellitus: Code(s): E11.621 - Type 2 diabetes mellitus with foot ulcer; L97.519 - Non-pressure chronic ulcer of other part of right foot with unspecified severity Status: Acute Plan We can check carotid Doppler study and also lipid profile and check his a B12 folic acid level. Physical therapy is working with him. He will require. Rehab getting going and prevent further falls. His family members are supportive. His 2 sons and 1 daughter. Daughter was present the time of this evaluation. I spoke to her. The patient now on Keppra 750 mg twice a day. Patient is also on pregabalin 200 mg 3 times a day. It should be noted the pregabalin can lead to ataxia and weight gain and probably at some point we should consider lowering the dose of this medication if possible. Subjective Date/time seen: 08/21/24 12:21 Interval history: The patient is 68 years old with history of tendency to fall at home and diabetes mellitus. Been diagnosed to have peripheral neuropathy associated with diabetes mellitus and has had seizures and now is on Keppra. He was in ICU and now back to floor. Also found to have rhabdomyolysis with a CPK of to 6000. The patient's daughter was present the time of the evaluation. History of lower back surgeries. he denies any incontinence of urine. His EEG performed yesterday did not show any significant abnormal findings. MRI of the brain shows nonspecific white changes and has brainstem chronic ischemic changes. Ventricles are normal size but appeared other prominent. Review of Systems Review of Systems: All systems reviewed & are unremarkable except as noted in HPI and below Exam Narrative: Fully conscious alert oriented to self time place and person. Speech is fluent and articulate. No aphasia or dysarthria. Cranial senior testing intact. No facial asymmetry. Tongue was midline. Motor power and tone in both upper upper limbs however mild weakness of dorsiflexion of the toes. Deep tendon reflexes are decreased at knees and ankles. Seems to have mild atrophy of the muscles distally in the lower limbs slightly more on the left than right side. Gait could not be tested at this time. Patient had a also on the right foot. Objective Data Vital Signs Vital Signs: Vital Signs - 24 hr 08/20/24 12:53 08/20/24 14:00 08/20/24 14:00 Temperature 100.4 F H Pulse Rate 77 76 Respiratory Rate 23 H Blood Pressure 116/76 Pulse Oximetry 96 Oxygen Delivery Room Air 08/20/24 16:00 08/20/24 18:00 08/20/24 16:00 Temperature 98.2 F 97.9 F Pulse Rate 77 73 Respiratory Rate 20 20 Blood Pressure 116/65 115/69 Pulse Oximetry 100 100 Oxygen Delivery Room Air 08/20/24 16:00 08/20/24 16:00 08/20/24 20:40 Temperature 97.7 F Pulse Rate 73 73 75 Respiratory Rate 20 Blood Pressure 110/62 Pulse Oximetry 95 Oxygen Delivery 08/20/24 20:00 08/20/24 20:00 08/20/24 23:36 Temperature 97.7 F Pulse Rate 75 75 76 Respiratory Rate 20 20 Blood Pressure 107/64 Pulse Oximetry 95 96 Oxygen Delivery Room Air 08/20/24 22:00 08/21/24 00:00 08/21/24 00:00 Temperature Pulse Rate 78 76 73 Respiratory Rate 20 Blood Pressure Pulse Oximetry 96 Oxygen Delivery Room Air 08/21/24 02:00 08/21/24 04:47 08/21/24 04:00 Temperature 98.4 F Pulse Rate 77 76 76 Respiratory Rate 20 20 Blood Pressure 128/68 Pulse Oximetry 98 98 Oxygen Delivery Room Air 08/21/24 04:00 08/21/24 06:00 08/21/24 08:00 Temperature 99.2 F Pulse Rate 72 73 79 Respiratory Rate 18 Blood Pressure 132/64 Pulse Oximetry 96 Oxygen Delivery 08/21/24 09:29 08/21/24 11:44 Temperature 98.5 F Pulse Rate 81 Respiratory Rate 22 H Blood Pressure 129/65 Pulse Oximetry 95 96 Oxygen Delivery Room Air Intake/Output Intake/Output: Intake & Output 08/18/24 08/19/24 08/20/24 08/21/24 23:59 23:59 23:59 23:59 Intake Total 1000 2447.5 3815.0 240 Output Total 1820 1350 2500 Balance 1000 627.5 2465.0 -2260 Meds/Results Medications: Active Medications Generic Name Dose Route Start Last Admin Trade Name Freq PRN Reason Stop Dose Admin Al Hydrox/Mg Hydrox/Simethicone 30 ml 08/19/24 02:38 Mag Hydrox/Al Hydrox/Simeth 30 Ml Udc PO Q6H PRN Indigestion Dextrose 12.5 gm 08/19/24 07:46 Dextrose 50% 25 Gm/50 Ml Syringe IV PUSH PRN PRN Hypoglycemia Protocol Enoxaparin Sodium 40 mg 08/20/24 09:00 08/21/24 09:00 Enoxaparin 40 Mg/0.4 Ml Syringe SUB-Q 40 mg DAILY MATHEUS Administration Glucagon 1 mg 08/19/24 07:46 Glucagon For Inj 1 Mg Vial IM PRN PRN Hypoglycemia Protocol Glucose 15 gm 08/19/24 07:46 Glucose Oral Gel 15 Gm Of Glucse In 37.5 Gm Tube PO PRN PRN Hypoglycemia Protocol Sodium Chloride 1,000 mls @ 100 mls/hr 08/19/24 04:35 08/21/24 06:47 Normal Saline Iv IV CONT 100 mls/hr .Q10H MATHEUS Administration Dextrose 1,000 mls @ 100 mls/hr 08/19/24 07:46 Dextrose 5% 1,000 Ml IVPB PRN PRN Hypoglycemia Protocol Levetiracetam 750 mg/ Dextrose 107.5 mls @ 430 mls/hr 08/19/24 21:00 08/21/24 09:22 IVPB 430 mls/hr Q12HR MATHEUS Administration Insulin Aspart 6 units 08/19/24 08:00 08/21/24 12:10 Insulin Aspart (*Bkc) 100 Units/Ml 0.05 units/kg (6 units) 6 units SUB-Q Administration TIDWM [facility] Insulin Aspart 3 - 6 units 08/20/24 08:50 08/21/24 12:11 Insulin Aspart (*Bkc) 100 Units/Ml SUB-Q 3 units TIDWM [facility] Administration Protocol Insulin Aspart 1 - 3 units 08/20/24 21:00 08/20/24 21:52 Insulin Aspart (*Bkc) 100 Units/Ml SUB-Q Not Given HS [facility] Protocol Insulin Glargine 20 units 08/21/24 21:00 Insulin Glargine (*Bkc) 100 Units/Ml SUB-Q HS [facility] Lorazepam 2 mg 08/19/24 12:35 Lorazepam Inj (*Crx) 2 Mg/Ml Vial IV PUSH ONCE PRN seizure Miscellaneous Information 0 each 08/19/24 00:01 08/21/24 07:54 Gemtessa Nonform Can Pt Bring From Home? XX 09/18/24 00:00 Not Given CLARIFY [facility] Non-Formulary Medication 75 mg 08/19/24 09:00 Vibegron [Gemtesa] PO 09/18/24 08:59 DAILY [facility] Ondansetron HCl 4 mg 08/19/24 02:38 Ondansetron Inj 4 Mg/2 Ml Vial IV PUSH Q6H PRN Nausea And Vomiting Perflutren Lipid Microsphere 0 ml 08/19/24 02:36 Perflutren Lipid Microspheres 1.5 Ml Vial Diluted To 10 Ml Total Volume IV PUSH 08/22/24 02:37 ONCE PRN adequate visualization Protocol Polyethylene Glycol 17 gm 08/19/24 02:38 Polyethylene Glycol 3350 17 Gm Powd.Pack PO QAM PRN Constipation Pregabalin 200 mg 08/19/24 09:00 08/21/24 12:11 Pregabalin (*Crx) 50 Mg Capsule PO 200 mg TID [facility] Administration Radiology Results: ITS Impressions Chest X-Ray 08/18/24 19:03 IMPRESSION: 1. No acute cardiopulmonary disease. Head CT 08/18/24 21:30 IMPRESSION: 1. Normal aging brain. Foot X-Ray 08/18/24 22:42 IMPRESSION: 1. No evidence of osteomyelitis. Renal Ultrasound 08/19/24 14:06 IMPRESSION: Right kidney is not visualized. The left kidney is normal. Brain MRI 08/19/24 17:32 IMPRESSION: 1. Mild nonspecific cerebral white matter disease and pontine disease, which likely represents chronic small vessel ischemic disease. Labs Labs: Laboratory Results - last 24 hr 08/20/24 08/20/24 08/20/24 12:36 17:00 21:01 WBC RBC Hgb Hct MCV MCH MCHC RDW Plt Count MPV Sodium Potassium Chloride Carbon Dioxide Anion Gap BUN Creatinine Estim Creat Clear Calc Estimated GFR Glucose POC Capillary Glucose 199 H 148 H 232 H Calcium Magnesium Total Bilirubin AST ALT Alkaline Phosphatase Total Creatine Kinase Total Protein Albumin 08/21/24 08/21/24 08/21/24 04:25 08:05 11:41 WBC 10.7 H RBC 4.61 Hgb 14.3 Hct 41.7 L MCV 90.5 MCH 31.0 MCHC 34.3 RDW 13.1 Plt Count 219 MPV 10.9 H Sodium 132 L Potassium 3.7 Chloride 103 Carbon Dioxide 23 Anion Gap 6 BUN 32 H Creatinine 1.20 Estim Creat Clear Calc 68 Estimated GFR > 60 Glucose 199 H POC Capillary Glucose 199 H 229 H Calcium 8.0 L Magnesium 2.5 H Total Bilirubin 0.9 AST 80 H ALT 35 Alkaline Phosphatase 78 Total Creatine Kinase 1203 H Total Protein 7.0 Albumin 3.1 L
--- NOTE | 2024-08-21 13:27 | PM.IMPN ---
Progress Note: A&P Assessment and Plan (1) Seizure-like activity: Code(s): R56.9 - Unspecified convulsions Status: Acute Assessment and Plan: Patient had seizure-like activity each lasting 10 seconds and received Ativan. Keppra added. No recurrence. Head CT shows normal aging brain. MRI of the brain shows mild nonspecific cerebral white matter disease and pontine disease likely represents chronic small vessel ischemic disease. Carotid Dopplers shows less than 50% stenosis of the bilateral internal carotid arteries. EEG shows normal record during wakefulness, drowsiness and sleep. Neurology consulted and appreciate their input. Patient is AO x3 and is asymptomatic at this time with no concern for of meningitis/encephalitis. Continue Keppra Continue seizure precautions and p.r.n. Ativan PT/OT. Stop fluids. Removed Paz. (2) Diabetes: Code(s): E11.9 - Type 2 diabetes mellitus without complications Status: Acute Assessment and Plan: A1c 9.2%. The patient's blood glucose was reviewed on 08/21 Glucose remains poorly controlled Continue AccuCheks covering with sliding scale. Hypoglycemia protocol available as needed. Continue Lantus but switched to evening dosing. (3) SEBLE (acute kidney injury): Code(s): N17.9 - Acute kidney failure, unspecified Status: Acute Assessment and Plan: Creatinine was 1.5 on admission. Probably related to rhabdomyolysis and/or dehydration. Creatinine has trended down to 1.2 and stable. Monitor urine output, electrolytes and renal function. (4) Rhabdomyolysis: Qualifiers: Rhabdomyolysis type: non-traumatic Qualified Code(s): M62.82 - Rhabdomyolysis Code(s): M62.82 - Rhabdomyolysis Status: Acute Assessment and Plan: Patient with rhabdomyolysis on admission felt related to immobility and possibly unrecognized seizures at home. Total CK was 6500 but has trended down to 1200 now. Stop Crestor. Will allow IV fluids to complete the bag and stop. Follow. (5) Ulcer of right foot due to type 2 diabetes mellitus: Code(s): E11.621 - Type 2 diabetes mellitus with foot ulcer; L97.519 - Non-pressure chronic ulcer of other part of right foot with unspecified severity Status: Acute Assessment and Plan: Foot x-ray was negative for any evidence of osteomyelitis. The wound does not appear infected. Blood cultures are no growth to date. Continue local wound dressing as per wound care recommendations Plan DVT prophylaxis -Lovenox Code Status - Full Code Subjective Date/time seen: 08/21/24 13:27 Interval history: 68yo male with insulin-dependent DM, HTN and HLD who presents to the hospital via EMS from home for generalized weakness and failure to thrive. Slept well last night. No chest pain or shortness of breath. Eating well. No nausea or vomiting. Patient required a hoarder left to get to the chair today. Normally walks with a walker at home. Exam Narrative: Tm 100.4 98.5 129/65 81 22 96% ra Gen - NARD Chest -distant clear breath sounds. CV - RRR S1/S2. Telemetry showing no significant dysrhythmias Abd - Soft, NT/ND, Positive BS -fully secured draining clear yellow urine Ext -trace pedal edema Neuro - Alert and oriented 3 (not Johan name). Nonfocal exam. Psych - Nml mood and affect Skin - Warm and dry Objective Data Vital Signs Vital Signs: Vital Signs - 24 hr 08/20/24 14:00 08/20/24 14:00 08/20/24 16:00 Temperature 100.4 F H 98.2 F Pulse Rate 77 76 77 Respiratory Rate 23 H 20 Blood Pressure 116/76 116/65 Pulse Oximetry 96 100 Oxygen Delivery 08/20/24 18:00 08/20/24 16:00 08/20/24 16:00 Temperature 97.9 F Pulse Rate 73 73 Respiratory Rate 20 Blood Pressure 115/69 Pulse Oximetry 100 Oxygen Delivery Room Air 08/20/24 16:00 08/20/24 20:40 08/20/24 20:00 Temperature 97.7 F Pulse Rate 73 75 75 Respiratory Rate 20 20 Blood Pressure 110/62 Pulse Oximetry 95 95 Oxygen Delivery Room Air 08/20/24 20:00 08/20/24 23:36 08/20/24 22:00 Temperature 97.7 F Pulse Rate 75 76 78 Respiratory Rate 20 Blood Pressure 107/64 Pulse Oximetry 96 Oxygen Delivery 08/21/24 00:00 08/21/24 00:00 08/21/24 02:00 Temperature Pulse Rate 76 73 77 Respiratory Rate 20 Blood Pressure Pulse Oximetry 96 Oxygen Delivery Room Air 08/21/24 04:47 08/21/24 04:00 11/21/24 04:00 Temperature 98.4 F Pulse Rate 76 76 72 Respiratory Rate 20 20 Blood Pressure 128/68 Pulse Oximetry 98 98 Oxygen Delivery Room Air 08/21/24 06:00 08/21/24 08:00 08/21/24 09:29 Temperature 99.2 F Pulse Rate 73 79 Respiratory Rate 18 Blood Pressure 132/64 Pulse Oximetry 96 95 Oxygen Delivery Room Air 08/21/24 11:44 Temperature 98.5 F Pulse Rate 81 Respiratory Rate 22 H Blood Pressure 129/65 Pulse Oximetry 96 Oxygen Delivery Intake/Output Intake/Output: Intake & Output 08/18/24 08/19/24 08/20/24 08/21/24 23:59 23:59 23:59 23:59 Intake Total 1000 2447.5 3815.0 240 Output Total 1820 1350 2500 Balance 1000 627.5 2465.0 -2260 Meds/Results Medications: Active Medications Generic Name Dose Route Start Last Admin Trade Name Freq PRN Reason Stop Dose Admin Al Hydrox/Mg Hydrox/Simethicone 30 ml 08/19/24 02:38 Mag Hydrox/Al Hydrox/Simeth 30 Ml Udc PO Q6H PRN Indigestion Dextrose 12.5 gm 08/19/24 07:46 Dextrose 50% 25 Gm/50 Ml Syringe IV PUSH PRN PRN Hypoglycemia Protocol Enoxaparin Sodium 40 mg 08/20/24 09:00 08/21/24 09:00 Enoxaparin 40 Mg/0.4 Ml Syringe SUB-Q 40 mg DAILY MATHEUS Administration Glucagon 1 mg 08/19/24 07:46 Glucagon For Inj 1 Mg Vial IM PRN PRN Hypoglycemia Protocol Glucose 15 gm 08/19/24 07:46 Glucose Oral Gel 15 Gm Of Glucse In 37.5 Gm Tube PO PRN PRN Hypoglycemia Protocol Sodium Chloride 1,000 mls @ 100 mls/hr 08/19/24 04:35 08/21/24 06:47 Normal Saline Iv IV CONT 100 mls/hr .Q10H MATHEUS Administration Dextrose 1,000 mls @ 100 mls/hr 08/19/24 07:46 Dextrose 5% 1,000 Ml IVPB PRN PRN Hypoglycemia Protocol Levetiracetam 750 mg/ Dextrose 107.5 mls @ 430 mls/hr 08/19/24 21:00 08/21/24 09:22 IVPB 430 mls/hr Q12HR MATHEUS Administration Insulin Aspart 6 units 08/19/24 08:00 08/21/24 12:10 Insulin Aspart (*Bkc) 100 Units/Ml 0.05 units/kg (6 units) 6 units SUB-Q Administration TIDWM [facility] Insulin Aspart 3 - 6 units 08/20/24 08:50 08/21/24 12:11 Insulin Aspart (*Bkc) 100 Units/Ml SUB-Q 3 units TIDWM [facility] Administration Protocol Insulin Aspart 1 - 3 units 08/20/24 21:00 08/20/24 21:52 Insulin Aspart (*Bkc) 100 Units/Ml SUB-Q Not Given [facility] Protocol Insulin Glargine 20 units 08/21/24 21:00 Insulin Glargine (*Bkc) 100 Units/Ml SUB-Q HS [facility] Lorazepam 2 mg 08/19/24 12:35 Lorazepam Inj (*Crx) 2 Mg/Ml Vial IV PUSH ONCE PRN seizure Miscellaneous Information 0 each 08/19/24 00:01 08/21/24 07:54 Gemtessa Nonform Can Pt Bring From Home? XX 09/18/24 00:00 Not Given CLARIFY [facility] Non-Formulary Medication 75 mg 08/19/24 09:00 Vibegron [Gemtesa] PO 09/18/24 08:59 DAILY [facility] Ondansetron HCl 4 mg 08/19/24 02:38 Ondansetron Inj 4 Mg/2 Ml Vial IV PUSH Q6H PRN Nausea And Vomiting Perflutren Lipid Microsphere 0 ml 08/19/24 02:36 Perflutren Lipid Microspheres 1.5 Ml Vial Diluted To 10 Ml Total Volume IV PUSH 08/22/24 02:37 ONCE PRN adequate visualization Protocol Polyethylene Glycol 17 gm 08/19/24 02:38 Polyethylene Glycol 3350 17 Gm Powd.Pack PO QAM PRN Constipation Pregabalin 200 mg 08/19/24 09:00 08/21/24 12:11 Pregabalin (*Crx) 50 Mg Capsule PO 200 mg TID [facility] Administration Radiology Results: ITS Impressions Chest X-Ray 08/18/24 19:03 IMPRESSION: 1. No acute cardiopulmonary disease. Head CT 08/18/24 21:30 IMPRESSION: 1. Normal aging brain. Foot X-Ray 08/18/24 22:42 IMPRESSION: 1. No evidence of osteomyelitis. Renal Ultrasound 08/19/24 14:06 IMPRESSION: Right kidney is not visualized. The left kidney is normal. Brain MRI 08/19/24 17:32 IMPRESSION: 1. Mild nonspecific cerebral white matter disease and pontine disease, which likely represents chronic small vessel ischemic disease. Labs Labs: Laboratory Results - last 24 hr 08/20/24 08/20/24 08/21/24 17:00 21:01 04:25 WBC 10.7 H RBC 4.61 Hgb 14.3 Hct 41.7 L MCV 90.5 MCH 31.0 MCHC 34.3 RDW 13.1 Plt Count 219 MPV 10.9 H Sodium 132 L Potassium 3.7 Chloride 103 Carbon Dioxide 23 Anion Gap 6 BUN 32 H Creatinine 1.20 Estim Creat Clear Calc 68 Estimated GFR > 60 Glucose 199 H POC Capillary Glucose 148 H 232 H Calcium 8.0 L Magnesium 2.5 H Total Bilirubin 0.9 AST 80 H ALT 35 Alkaline Phosphatase 78 Total Creatine Kinase 1203 H Total Protein 7.0 Albumin 3.1 L 08/21/24 08/21/24 08:05 11:41 WBC RBC Hgb Hct MCV MCH MCHC RDW Plt Count MPV Sodium Potassium Chloride Carbon Dioxide Anion Gap BUN Creatinine Estim Creat Clear Calc Estimated GFR Glucose POC Capillary Glucose 199 H 229 H Calcium Magnesium Total Bilirubin AST ALT Alkaline Phosphatase Total Creatine Kinase Total Protein Albumin
[2024-08-21 13:43] LABS: Cholesterol 80 mg/dL (0-200); HDL Direct 23 mg/dL; Triglycerides 105 mg/dL (<150)
[2024-08-21 13:54] LABS: LDL Cholesterol Direct 33 mg/dL
[2024-08-21 13:55] LABS: Hemoglobin A1C 9.2 % (<5.7)
[2024-08-21 14:28] LABS: Vitamin D 25 Hydroxy < 12.8 ng/mL
[2024-08-21 16:29] LABS: Glucose Point of Care 215 mg/dl (65-105)
[2024-08-21 17:27] LABS: Folic Acid 2.9 ng/mL (2.76->20)
[2024-08-21 20:09] LABS: Glucose Point of Care 61 mg/dl (65-105)
[2024-08-21 20:29] LABS: Glucose Point of Care 55 mg/dl (65-105)
[2024-08-21 20:29] LABS: Glucose Point of Care 76 mg/dl (65-105)
[2024-08-21 21:06] LABS: Anion Gap 5 mmol/L (4-12); Blood Urea Nitrogen 25 mg/dL (9-20); Calcium 7.5 mg/dL (8.4-10.2); Carbon Dioxide 21 mmol/L (22-30); Chloride 106 mmol/L (98-107); Estimated CRCL calculation 74 ml/min; Estimated Glomerular Filt Rate > 60; Glucose 115 mg/dL (65-110); Potassium 3.7 mmol/L (3.4-5.0); Sodium 132 mmol/L (137-145)
--- NOTE | 2024-08-21 22:49 | PM.EVENT ---
Event Note Event Note Event Note: Was called by bedside nursing around 8:00 p.m. that the patient's blood sugar was 61. The patient ate 100% of his dinner and received only 9 units with his meal. The bedside nurse give the patient something to eat and and recheck his blood sugar around 822 and was 55. He was read checked again at 8:25 p.m. and was 76. I went ahead and put in for BMP to check his blood sugar with his labs and it was 115 however the patient has been running in the 200s the last couple of days. I went ahead and hold his Lantus for tonight considering his blood sugar dropped. I will inform the [facility] rounding team regarding this event.
[2024-08-22] VITALS (13 sets, daily range): BP systolic 114–128; BP diastolic 60–77; PULSE 66–89; RESP 18–26; TEMP 36.3–37.2; O2SAT 96–99
[2024-08-22 04:37] LABS: Hematocrit 40.2 % (42.0-52.0); Hemoglobin 13.1 g/dL (14.0-18.0); Mean Corpuscular HGB Conc 32.6 g/dl (32-36); Mean Corpuscular Hemoglobin 30.2 pg (26-34); Mean Corpuscular Volume 92.6 fl (80-100); Mean Platelet Volume 10.7 fl (7.4-10.4); Platelet Count Result 234 k/mm3 (150-375); Red Blood Count 4.34 M/mm3 (4.6-6.20); White Blood Count 9.3 K/mm3 (4.5-10.0)
[2024-08-22 04:49] LABS: Alanine Aminotransferase 32 U/L (6-50); Albumin Level 2.7 g/dL (3.5-5.1); Alkaline Phosphatase 67 U/L (38-126); Anion Gap 4 mmol/L (4-12); Aspartate Amino Transferase 65 U/L (17-59); Bilirubin,Total 0.8 mg/dL (0.2-1.3); Blood Urea Nitrogen 23 mg/dL (9-20); Calcium 7.8 mg/dL (8.4-10.2); Carbon Dioxide 24 mmol/L (22-30); Chloride 107 mmol/L (98-107); Creatine Kinase 770 U/L (55-170); Estimated CRCL calculation 74 ml/min; Estimated Glomerular Filt Rate > 60; Glucose 91 mg/dL (65-110); Magnesium 2.4 mg/dL (1.6-2.3); Potassium 3.6 mmol/L (3.4-5.0); Sodium 135 mmol/L (137-145)
[2024-08-22 08:19] LABS: Glucose Point of Care 132 mg/dl (65-105)
[2024-08-22] MEDS: INSULIN ASPART (*BKC) 100 UNITS/ML 6 UNITS SUB-Q ×2 (08:49→12:31)
[2024-08-22] MEDS: FOLIC ACID 1 MG TABLET PO (08:51)
[2024-08-22] MEDS: PREGABALIN (*CRX) 75 MG CAPSULE 150 MG PO ×3 (08:52→17:23)
[2024-08-22] MEDS: levETIRAcetam Tablet 250 MG, levETIRAcetam Tablet 500 MG 750 MG PO ×2 (08:52→20:07)
[2024-08-22] MEDS: CHOLECALCIFEROL 5,000 UNITS TABLET 5000 UNITS PO (08:56)
--- NOTE | 2024-08-22 09:46 | IVDEFINITY ---
Prior to administration of IV Definity the patient was educated on the risks and benefits of the imaging enhancing agent including potential adverse side effects. The patient verbalized understanding. Allergies were verified. No exclusion criteria were identified and at least one of the following inclusion criteria were met: 1) physician request, 2) patient technically difficult to image (per the [place] [employer] guidelines of two or more segments not discernable within the apical view), or 3) questionable left ventricular function. ?
--- NOTE | 2024-08-22 11:32 | PCPTNOTE ---
Attempted to see patient for PT, however patient was working with OT.
[2024-08-22 11:45] LABS: Glucose Point of Care 151 mg/dl (65-105)
[2024-08-22] MEDS: ENOXAPARIN 40 MG/0.4 ML SYRINGE SUB-Q (12:34)
--- NOTE | 2024-08-22 14:15 | PC.NURSE ---
Addendum entered by Meghna Pak RN 08/22/24 14:19: Son reports seizure was induced by a cough. Original Note: 1405: Patients son reports electronic operator light He had a seizure . Pt resting in bed on back with eyes open. Alert and oriented x 4. Denies any trouble with thoughts or tingling. States I feel pretty good. I know I blacked out but now I feel fine. Son reports pts eyes were rolling back and arms were extended going over head. States It lasted 15 seconds and is the worst one I've seen so far. HR 77, RR 20, 128/60, 97% on RA. YANCI Delgado made aware. Dr. Carter notified.
--- NOTE | 2024-08-22 15:37 | PM.IMPN ---
Progress Note: A&P Assessment and Plan (1) Seizure-like activity: Code(s): R56.9 - Unspecified convulsions Status: Acute Assessment and Plan: Patient had seizure-like activity each lasting 10 seconds and received Ativan. Keppra added. Head CT shows normal aging brain. MRI of the brain shows mild nonspecific cerebral white matter disease and pontine disease likely represents chronic small vessel ischemic disease. Carotid Dopplers shows less than 50% stenosis of the bilateral internal carotid arteries. EEG shows normal record during wakefulness, drowsiness and sleep. Neurology consulted and appreciate their input. Patient is AO and is asymptomatic at this time with no concern for of meningitis/encephalitis. Patient now having paroxysmal spasms related to coughing and family is concerned that he appears to have paused respirations. They do no believe related to him falling asleep. No postictal confusion VitD level low so will replace. Folate low end of normal so will also replace. Continue Keppra. Neuro recommended backing down on Lyrica which will start today. Resume duloxitine at half dose. . Continue seizure precautions and p.r.n. Ativan PT/OT. Continue Neuro checks. Check Apnea link. (2) Diabetes: Code(s): E11.9 - Type 2 diabetes mellitus without complications Status: Acute Assessment and Plan: A1c 9.2%. The patient's blood glucose was reviewed on 08/22 Glucose better controlled today and actually had a low last night at 51. Continue AccuCheks covering with sliding scale. Hypoglycemia protocol available as needed. Lantuis not given last night. Eating normally. Holding Lantus. Stop meal time insulin. (3) SEBLE (acute kidney injury): Code(s): N17.9 - Acute kidney failure, unspecified Status: Acute Assessment and Plan: Creatinine was 1.5 on admission. Probably related to rhabdomyolysis and/or dehydration. Creatinine has trended down to 1.1 and stable. Monitor urine output, electrolytes and renal function. (4) Rhabdomyolysis: Qualifiers: Rhabdomyolysis type: non-traumatic Qualified Code(s): M62.82 - Rhabdomyolysis Code(s): M62.82 - Rhabdomyolysis Status: Acute Assessment and Plan: Patient with rhabdomyolysis on admission felt related to immobility and possibly unrecognized seizures at home. Total CK was 6500 but has trended down to 770 now. Crestor stopped IV fluids stopped Follow. (5) Ulcer of right foot due to type 2 diabetes mellitus: Code(s): E11.621 - Type 2 diabetes mellitus with foot ulcer; L97.519 - Non-pressure chronic ulcer of other part of right foot with unspecified severity Status: Acute Assessment and Plan: Foot x-ray was negative for any evidence of osteomyelitis. The wound does not appear infected. Blood cultures are no growth to date. Continue local wound dressing as per wound care recommendations Plan DVT prophylaxis -Lovenox; check RUE doppler Code Status - Full Code Discharge - discharge when accepted at facility. Subjective Date/time seen: 08/22/24 15:37 Interval history: 68yo male with insulin-dependent DM, HTN and HLD who presents to the hospital via EMS from home for generalized weakness and failure to thrive. Able to sit at the side of the bed. Walking with walker to the chair. Family in the room. They noted multiple episodes today patient having coughing spells that resulted in flailing arms but no postictal confusion. Symptoms are brief onset and quick resolution. Patient states he has had this cough for many years related to his long smoking history. Patient does not have hx of KENYA. He does snore Exam Narrative: AF 97.5 128/60 77 20 97% ra Gen - NARD Chest -distant clear breath sounds. CV - RRR S1/S2. Telemetry showing no significant dysrhythmias Abd - Soft, obese, NT Ext -trace pedal edema. 1+ right UE edema Neuro - Alert and appropriate Nonfocal exam. Psych - Nml mood and affect Skin - Warm and dry. right distal plantar with round ulcer withyellowish thin exudate but no erythema or strong odor. Left elbow dressing clean, dry and intact Objective Data Vital Signs Vital Signs: Vital Signs - 24 hr 08/21/24 16:00 08/21/24 16:00 08/21/24 18:00 Temperature 97.2 F L Pulse Rate 77 74 80 Respiratory Rate 20 Blood Pressure 128/65 Pulse Oximetry 99 Oxygen Delivery 08/21/24 16:00 08/21/24 18:52 08/21/24 20:00 Temperature 98.9 F Pulse Rate 78 80 Respiratory Rate 26 H Blood Pressure 126/52 L Pulse Oximetry 100 Oxygen Delivery Room Air 08/21/24 22:00 08/21/24 20:00 08/22/24 00:00 Temperature Pulse Rate 70 70 Respiratory Rate 26 H Blood Pressure Pulse Oximetry 100 Oxygen Delivery Room Air 08/22/24 00:00 08/22/24 00:00 08/22/24 02:00 Temperature 98.8 F Pulse Rate 68 67 Respiratory Rate 22 H Blood Pressure 114/77 Pulse Oximetry 97 98 Oxygen Delivery Room Air 08/22/24 04:00 08/22/24 04:00 08/22/24 04:00 Temperature 97.3 F L Pulse Rate 66 66 Respiratory Rate 18 Blood Pressure 128/63 Pulse Oximetry 98 99 Oxygen Delivery Room Air 08/22/24 06:00 08/22/24 07:32 08/22/24 11:51 Temperature 98.9 F 97.5 F L Pulse Rate 71 71 77 Respiratory Rate 18 22 H Blood Pressure 126/67 121/66 Pulse Oximetry 96 99 Oxygen Delivery 08/22/24 08:45 08/22/24 08:45 08/22/24 10:00 Temperature Pulse Rate 76 76 81 Respiratory Rate Blood Pressure Pulse Oximetry 99 Oxygen Delivery Room Air 08/22/24 12:30 08/22/24 12:30 08/22/24 14:05 Temperature Pulse Rate 77 89 77 Respiratory Rate 22 H 20 Blood Pressure 128/60 Pulse Oximetry 99 97 Oxygen Delivery Room Air Intake/Output Intake/Output: Intake & Output 08/19/24 08/20/24 08/21/24 08/22/24 23:59 23:59 23:59 23:59 Intake Total 2447.5 3815.0 3231.6 600 Output Total 1820 1350 3150 2750 Balance 627.5 2465.0 81.6 -2150 Meds/Results Medications: Active Medications Generic Name Dose Route Start Last Admin Trade Name Freq PRN Reason Stop Dose Admin Al Hydrox/Mg Hydrox/Simethicone 30 ml 08/19/24 02:38 Mag Hydrox/Al Hydrox/Simeth 30 Ml Udc PO Q6H PRN Indigestion Alprazolam 0.5 mg 08/22/24 07:39 Alprazolam (*Crx) 0.5 Mg Tablet PO BID PRN Anxiety Dextrose 12.5 gm 08/19/24 07:46 Dextrose 50% 25 Gm/50 Ml Syringe IV PUSH PRN PRN Hypoglycemia Protocol Duloxetine HCl 30 mg 08/22/24 09:00 Duloxetine Hcl 30 Mg Capsule. PO DAILY [facility] Enoxaparin Sodium 40 mg 08/20/24 09:00 08/22/24 12:34 Enoxaparin 40 Mg/0.4 Ml Syringe SUB-Q 40 mg DAILY [facility] Administration Folic Acid 1 mg 08/22/24 09:00 08/22/24 08:51 Folic Acid 1 Mg Tablet PO 1 mg DAILY [facility] Administration Glucagon 1 mg 08/19/24 07:46 Glucagon For Inj 1 Mg Vial IM PRN PRN Hypoglycemia Protocol Glucose 15 gm 08/19/24 07:46 Glucose Oral Gel 15 Gm Of Glucse In 37.5 Gm Tube PO PRN PRN Hypoglycemia Protocol Dextrose 1,000 mls @ 100 mls/hr 08/19/24 07:46 Dextrose 5% 1,000 Ml IVPB PRN PRN Hypoglycemia Protocol Insulin Aspart 6 units 08/19/24 08:00 08/22/24 12:31 Insulin Aspart (*Bkc) 100 Units/Ml 0.05 units/kg (6 units) 6 units SUB-Q Administration TIDWM [facility] Insulin Aspart 3 - 6 units 08/20/24 08:50 08/22/24 12:34 Insulin Aspart (*Bkc) 100 Units/Ml SUB-Q Not Given TIDWM [facility] Protocol Insulin Aspart 1 - 3 units 08/20/24 21:00 08/21/24 20:04 Insulin Aspart (*Bkc) 100 Units/Ml SUB-Q Not Given HS [facility] Protocol Insulin Glargine 20 units 08/21/24 21:00 08/21/24 21:30 Insulin Glargine (*Bkc) 100 Units/Ml SUB-Q Not Given HS [facility] Levetiracetam 250 mg/ 750 mg 08/22/24 09:00 08/22/24 08:52 Levetiracetam 500 mg PO 750 mg Q12HR [facility] Administration Lorazepam 2 mg 08/19/24 12:35 Lorazepam Inj (*Crx) 2 Mg/Ml Vial IV PUSH ONCE PRN seizure Miscellaneous Information 1 each 08/22/24 00:01 Duloxetine Is Entered As 30 Mg But Home Med Rec Says Patient Takes 60 Mg. Should This Orde XX 09/21/24 00:00 CLARIFY [facility] Ondansetron HCl 4 mg 08/19/24 02:38 Ondansetron Inj 4 Mg/2 Ml Vial IV PUSH Q6H PRN Nausea And Vomiting Polyethylene Glycol 17 gm 08/19/24 02:38 Polyethylene Glycol 3350 17 Gm Powd.Pack PO QAM PRN Constipation Pregabalin 150 mg 08/22/24 09:00 08/22/24 12:35 Pregabalin (*Crx) 75 Mg Capsule PO 150 mg TID [facility] Administration Vitamin D 5,000 units 08/22/24 09:00 08/22/24 08:56 Cholecalciferol 5,000 Units Tablet PO 08/29/24 08:59 5,000 units DAILY [facility] Administration Vitamin D 1,000 units 08/29/24 09:00 Cholecalciferol 1,000 Units Tablet PO DAILY [facility] Radiology Results: ITS Impressions Chest X-Ray 08/18/24 19:03 IMPRESSION: 1. No acute cardiopulmonary disease. Head CT 08/18/24 21:30 IMPRESSION: 1. Normal aging brain. Foot X-Ray 08/18/24 22:42 IMPRESSION: 1. No evidence of osteomyelitis. Renal Ultrasound 08/19/24 14:06 IMPRESSION: Right kidney is not visualized. The left kidney is normal. Brain MRI 08/19/24 17:32 IMPRESSION: 1. Mild nonspecific cerebral white matter disease and pontine disease, which likely represents chronic small vessel ischemic disease. Carotid Doppler Study 08/21/24 17:16 IMPRESSION: 1. <50% stenosis in the right internal carotid artery. 2. <50% stenosis in the left internal carotid artery. Labs Labs: Laboratory Results - last 24 hr 08/21/24 08/21/24 08/21/24 04:25 16:04 19:47 WBC RBC Hgb Hct MCV MCH MCHC RDW Plt Count MPV Sodium Potassium Chloride Carbon Dioxide Anion Gap BUN Creatinine Estim Creat Clear Calc Estimated GFR Glucose POC Capillary Glucose 215 H 61 L Calcium Magnesium Total Bilirubin AST ALT Alkaline Phosphatase Total Creatine Kinase Total Protein Albumin Vitamin B12 499.0 Folate 2.9 08/21/24 08/21/24 08/21/24 20:22 20:25 20:50 WBC RBC Hgb Hct MCV MCH MCHC RDW Plt Count MPV Sodium 132 L Potassium 3.7 Chloride 106 Carbon Dioxide 21 L Anion Gap 5 BUN 25 H Creatinine 1.10 Estim Creat Clear Calc 74 Estimated GFR > 60 Glucose 115 H POC Capillary Glucose 55 L* 76 Calcium 7.5 L Magnesium Total Bilirubin AST ALT Alkaline Phosphatase Total Creatine Kinase Total Protein Albumin Vitamin B12 Folate 08/22/24 08/22/24 08/22/24 03:55 07:45 11:42 WBC 9.3 RBC 4.34 L Hgb 13.1 L Hct 40.2 L MCV 92.6 MCH 30.2 MCHC 32.6 RDW 13.0 Plt Count 234 MPV 10.7 H Sodium 135 L Potassium 3.6 Chloride 107 Carbon Dioxide 24 Anion Gap 4 BUN 23 H Creatinine 1.10 Estim Creat Clear Calc 74 Estimated GFR > 60 Glucose 91 POC Capillary Glucose 132 H 151 H Calcium 7.8 L Magnesium 2.4 H Total Bilirubin 0.8 AST 65 H ALT 32 Alkaline Phosphatase 67 Total Creatine Kinase 770 H Total Protein 6.0 L Albumin 2.7 L Vitamin B12 Folate
[2024-08-22 16:45] LABS: Glucose Point of Care 176 mg/dl (65-105)
--- NOTE | 2024-08-22 19:49 | PC.NURSE ---
1510- pt had another seizure per family lasting @ 10 seconds- stated he coughed , arms in air-then resolved- pt has not confusion and is alert after episode - MD informed
[2024-08-22 19:53] LABS: Glucose Point of Care 222 mg/dl (65-105)
[2024-08-22] MEDS: DULoxetine HCL 30 MG CAPSULE.DR PO (20:07)
--- NOTE | 2024-08-22 23:36 | PCRCNOTE ---
Pt refused sleep study 2x. Pt stated that he does not want to participate in study because he doesn't sleep at night. I explained to him the purpose of the study and he still refused.
--- NOTE | 2024-08-23 00:43 | PC.NURSE ---
This patient, Rashid Mullen II, was transferred to [[id number] ] on 08/23/24 at 0042. Personal belongings sent with patient. Report given to [December RN ]. Appropriate documentation sent with patient.
--- NOTE | 2024-08-23 00:52 | PC.NURSE ---
This patient, Rashid Mullen II, was received from [facility] on 08/23/24 at 0053. Patient/family oriented to unit policies and routines. This RN received report from YANCI Romo.
[2024-08-23] MEDS: ALPRAZolam (*CRX) 0.5 MG TABLET PO ×2 (01:00→20:55)
[2024-08-23 04:16] VITALS: BP 123/68; PULSE 66; RESP 20; TEMP 36.4; O2SAT 98
[2024-08-23 05:21] LABS: Hematocrit 40.9 % (42.0-52.0); Hemoglobin 13.7 g/dL (14.0-18.0); Mean Corpuscular HGB Conc 33.5 g/dl (32-36); Mean Corpuscular Hemoglobin 30.4 pg (26-34); Mean Corpuscular Volume 90.9 fl (80-100); Mean Platelet Volume 10.7 fl (7.4-10.4); Platelet Count Result 227 k/mm3 (150-375); Red Cell Distribution Width 12.8 % (11.5-14.5); White Blood Count 7.4 K/mm3 (4.5-10.0)
[2024-08-23 07:15] LABS: Alanine Aminotransferase 35 U/L (6-50); Albumin Level 2.8 g/dL (3.5-5.1); Alkaline Phosphatase 66 U/L (38-126); Anion Gap 3 mmol/L (4-12); Aspartate Amino Transferase 61 U/L (17-59); Bilirubin,Total 0.9 mg/dL (0.2-1.3); Blood Urea Nitrogen 17 mg/dL (9-20); Calcium 8.1 mg/dL (8.4-10.2); Carbon Dioxide 26 mmol/L (22-30); Chloride 106 mmol/L (98-107); Estimated CRCL calculation 88 ml/min; Estimated Glomerular Filt Rate > 60; Glucose 213 mg/dL (65-110); Magnesium 2.1 mg/dL (1.6-2.3); Potassium 4.4 mmol/L (3.4-5.0); Sodium 135 mmol/L (137-145)
[2024-08-23 08:26] LABS: Glucose Point of Care 214 mg/dl (65-105)
[2024-08-23 08:27] LABS: Creatine Kinase 501 U/L (55-170)
--- NOTE | 2024-08-23 09:27 | P.PNIM_ITS ---
Progress Note: A&P Assessment and Plan (1) Seizure-like activity: Code(s): R56.9 - Unspecified convulsions Status: Acute Assessment and Plan: Patient had seizure-like activity each lasting 10 seconds and received Ativan. Keppra added. Head CT shows normal aging brain. MRI of the brain shows mild nonspecific cerebral white matter disease and pontine disease likely represents chronic small vessel ischemic disease. Carotid Dopplers shows less than 50% stenosis of the bilateral internal carotid arteries. EEG shows normal record during wakefulness, drowsiness and sleep. Neurology consulted and appreciate their input. Patient is AO and is asymptomatic at this time with no concern for of meningitis/encephalitis. Patient now having paroxysmal spasms related to coughing and family is concerned that he appears to have paused respirations. They do no believe related to him falling asleep. No postictal confusion VitD level low so will replace. Folate low end of normal so will also replace. Continue Keppra. Neuro recommended backing down on Lyrica which will start today. Resume duloxitine at half dose. . Continue seizure precautions and p.r.n. Ativan PT/OT. Continue Neuro checks. Check Apnea link- which pt refused (2) Diabetes: Code(s): E11.9 - Type 2 diabetes mellitus without complications Status: Acute Assessment and Plan: A1c 9.2%. The patient's blood glucose was reviewed on 08/22 Glucose better controlled today and actually had a low last night at 51. Continue AccuCheks covering with sliding scale. Hypoglycemia protocol available as needed. Lantuis not given last night. Eating normally. Holding Lantus. Stop meal time insulin. (3) SEBLE (acute kidney injury): Code(s): N17.9 - Acute kidney failure, unspecified Status: Acute Assessment and Plan: Creatinine was 1.5 on admission. Probably related to rhabdomyolysis and/or dehydration. Creatinine has trended down to 1.1 and stable. Monitor urine output, electrolytes and renal function. (4) Rhabdomyolysis: Qualifiers: Rhabdomyolysis type: non-traumatic Qualified Code(s): M62.82 - Rhabdomyolysis Code(s): M62.82 - Rhabdomyolysis Status: Acute Assessment and Plan: Patient with rhabdomyolysis on admission felt related to immobility and possibly unrecognized seizures at home. Total CK was 6500 but has trended down to 501 now. Crestor stopped IV fluids stopped monitor (5) Ulcer of right foot due to type 2 diabetes mellitus: Code(s): E11.621 - Type 2 diabetes mellitus with foot ulcer; L97.519 - Non-pressure chronic ulcer of other part of right foot with unspecified severity Status: Acute Assessment and Plan: Foot x-ray was negative for any evidence of osteomyelitis. The wound does not appear infected. Blood cultures are no growth to date. Continue local wound dressing as per wound care recommendations Plan Venous doppler: Small amount of thrombus along side a peripheral IV in the right basilic vein at the forearm. Usually self limiting- will monitor for now- pt will be on lovenox while in the hosptial- once discharge- will need a follow up doppler ultrasound to observe resolution of small superficial thrombus. DVT prophylaxis -Lovenox; check RUE doppler Code Status - Full Code Discharge - discharge when accepted at facility. Time Spent With Patient Time with patient: Greater than 35 minutes Subjective Date/time seen: 08/23/24 09:27 Interval history: 68yo male with insulin-dependent DM, HTN and HLD who presents to the hospital via EMS from home for generalized weakness and failure to thrive. assuming care. pt is seen and examined. walking with PT/OT, care coordination working on placement. denies any more seizure like activity. Reports cough, dry, non productive. Review of Systems Review of Systems: All systems reviewed & are unremarkable except as noted in HPI and below (HPI) Constitutional: Constitutional: Denies chills Eyes: Eyes: Denies blurry vision Cardiovascular: Cardiovascular: Denies chest pain Respiratory: Respiratory: Reports cough Gastrointestinal: Gastrointestinal: Denies abdominal pain Exam Narrative: Gen - alert, oriented, pleasant Chest -distant clear breath sounds. CV - RRR S1/S2. Telemetry showing no significant dysrhythmias Abd - Soft, obese, NT Ext -trace pedal edema. 1+ right UE edema Neuro - Alert and appropriate Nonfocal exam. Psych - Nml mood and affect Skin - Warm and dry. right distal plantar with round ulcer with yellowish thin exudate but no erythema or strong odor. Left elbow dressing clean, dry and intact Const: General: comfortable, no acute distress, well developed, alert, awake, ill appearing chronically, lethargic, patient obtunded and obese Nutritional Appearance: obese Orientation/consciousness: patient obtunded and lethargic HENMT: Head: normal to inspection, normocephalic and atraumatic Ears: hearing grossly normal bilaterally Face/Nose/Sinus: normal facial exam Face and sinus: normal facial exam Eyes: General: appearance normal, both eyes and all related structures Pupils: Equal, round and reactive pupils present EOM: EOMs intact bilaterally Neck: Neck: full ROM, no lymphadenopathy and no JVD Thyroid: thyroid normal Lymphatic: no lymphadenopathy noted Resp: Effort & Inspection: normal respiratory effort and able to speak in complete sentences Auscultation: clear to auscultation bilaterally Cardio: Jugular venous distension: no JVD Rate: regular rate Rhythm: regular rhythm Heart sounds: S1 normal heart sound present and S2 normal heart sound present GI: Inspection: Pannus present and obesity : General: Yes deferred Skin: Rashes: no rashes Wounds: no wounds Neuro: General: no focal motor deficits, CN's II-XI intact bilaterally, patient obtunded and Unable to assess gait Cranial nerves: Yes CN's II-XII intact bilaterally and Yes Equal, round and reactive pupils present Cognition (Neuro): abnormal cognition ( lethargy/obtunded) Gait exam (Neuro): Unable to assess gait Motor exam (neuro): 5/5 motor strength present throughout Extrem: General: normal to inspection, full ROM, no joint enlargement and no pedal edema Other: right foot ulcer Objective Data Vital Signs Vital Signs: Vital Signs - 24 hr 08/22/24 11:51 08/22/24 10:00 08/22/24 12:30 Temperature 97.5 F L Pulse Rate 77 81 77 Respiratory Rate 22 H 22 H Blood Pressure 121/66 Pulse Oximetry 99 99 Oxygen Delivery Room Air 08/22/24 12:30 08/22/24 14:05 08/22/24 16:00 Temperature 98.1 F Pulse Rate 89 77 72 Respiratory Rate 20 26 H Blood Pressure 128/60 119/70 Pulse Oximetry 97 98 Oxygen Delivery 08/22/24 14:00 08/22/24 16:00 08/22/24 19:38 Temperature Pulse Rate 75 74 Respiratory Rate Blood Pressure Pulse Oximetry Oxygen Delivery Room Air 08/22/24 23:40 08/23/24 04:16 Temperature 98.1 F 97.6 F Pulse Rate 66 Respiratory Rate 22 H 20 Blood Pressure 120/76 123/68 Pulse Oximetry 98 98 Oxygen Delivery Intake/Output Intake/Output: Intake & Output 08/20/24 08/21/24 08/22/24 08/23/24 23:59 23:59 23:59 23:59 Intake Total 3815.0 3231.6 1630 950 Output Total 1350 3150 3575 1200 Balance 2465.0 81.6 -9065 -250 Meds/Results Medications: Active Medications Generic Name Dose Route Start Last Admin Trade Name Freq PRN Reason Stop Dose Admin Al Hydrox/Mg Hydrox/Simethicone 30 ml 08/19/24 02:38 Mag Hydrox/Al Hydrox/Simeth 30 Ml Udc PO Q6H PRN Indigestion Alprazolam 0.5 mg 08/22/24 07:39 08/23/24 01:00 Alprazolam (*Crx) 0.5 Mg Tablet PO 0.5 mg BID PRN Administration Anxiety Dextrose 12.5 gm 08/19/24 07:46 Dextrose 50% 25 Gm/50 Ml Syringe IV PUSH PRN PRN Hypoglycemia Protocol Duloxetine HCl 30 mg 08/22/24 09:00 08/22/24 20:07 Duloxetine Hcl 30 Mg Capsule.Dr PO 30 mg DAILY [facility] Administration Enoxaparin Sodium 40 mg 08/20/24 09:00 08/22/24 12:34 Enoxaparin 40 Mg/0.4 Ml Syringe SUB-Q 40 mg DAILY [facility] Administration Folic Acid 1 mg 08/22/24 09:00 08/22/24 08:51 Folic Acid 1 Mg Tablet PO 1 mg DAILY [facility] Administration Glucagon 1 mg 08/19/24 07:46 Glucagon For Inj 1 Mg Vial IM PRN PRN Hypoglycemia Protocol Glucose 15 gm 08/19/24 07:46 Glucose Oral Gel 15 Gm Of Glucse In 37.5 Gm Tube PO PRN PRN Hypoglycemia Protocol Dextrose 1,000 mls @ 100 mls/hr 08/19/24 07:46 Dextrose 5% 1,000 Ml IVPB PRN PRN Hypoglycemia Protocol Insulin Aspart 2 - 5 units 08/22/24 17:00 08/22/24 17:22 Insulin Aspart (*Bkc) 100 Units/Ml SUB-Q Not Given TIDWM [facility] Protocol Levetiracetam 250 mg/ 750 mg 08/22/24 09:00 08/22/24 20:07 Levetiracetam 500 mg PO 750 mg Q12HR [facility] Administration Lorazepam 2 mg 08/19/24 12:35 Lorazepam Inj (*Crx) 2 Mg/Ml Vial IV PUSH ONCE PRN seizure Ondansetron HCl 4 mg 08/19/24 02:38 Ondansetron Inj 4 Mg/2 Ml Vial IV PUSH Q6H PRN Nausea And Vomiting Polyethylene Glycol 17 gm 08/19/24 02:38 Polyethylene Glycol 3350 17 Gm Powd.Pack PO QAM PRN Constipation Pregabalin 150 mg 08/22/24 09:00 08/22/24 17:23 Pregabalin (*Crx) 75 Mg Capsule PO 150 mg TID [facility] Administration Vitamin D 5,000 units 08/22/24 09:00 08/22/24 08:56 Cholecalciferol 5,000 Units Tablet PO 08/29/24 08:59 5,000 units DAILY [facility] Administration Vitamin D 1,000 units 08/29/24 09:00 Cholecalciferol 1,000 Units Tablet PO DAILY [facility] Radiology Results: ITS Impressions Chest X-Ray 08/18/24 19:03 IMPRESSION: 1. No acute cardiopulmonary disease. Head CT 08/18/24 21:30 IMPRESSION: 1. Normal aging brain. Foot X-Ray 08/18/24 22:42 IMPRESSION: 1. No evidence of osteomyelitis. Renal Ultrasound 08/19/24 14:06 IMPRESSION: Right kidney is not visualized. The left kidney is normal. Brain MRI 08/19/24 17:32 IMPRESSION: 1. Mild nonspecific cerebral white matter disease and pontine disease, which likely represents chronic small vessel ischemic disease. Carotid Doppler Study 08/21/24 17:16 IMPRESSION: 1. <50% stenosis in the right internal carotid artery. 2. <50% stenosis in the left internal carotid artery. Venous Doppler Study 08/22/24 16:51 IMPRESSION: 1. Small amount of thrombus along side a peripheral IV in the right basilic vein at the forearm. Labs Labs: Laboratory Results - last 24 hr 08/22/24 08/22/24 08/22/24 11:42 16:29 19:44 WBC RBC Hgb Hct MCV MCH MCHC RDW Plt Count MPV Sodium Potassium Chloride Carbon Dioxide Anion Gap BUN Creatinine Estim Creat Clear Calc Estimated GFR Glucose POC Capillary Glucose 151 H 176 H 222 H Calcium Magnesium Total Bilirubin AST ALT Alkaline Phosphatase Total Creatine Kinase Total Protein Albumin 08/23/24 08/23/24 05:11 07:59 WBC 7.4 RBC 4.50 L Hgb 13.7 L Hct 40.9 L MCV 90.9 MCH 30.4 MCHC 33.5 RDW 12.8 Plt Count 227 MPV 10.7 H Sodium 135 L Potassium 4.4 Chloride 106 Carbon Dioxide 26 Anion Gap 3 L BUN 17 Creatinine 0.90 Estim Creat Clear Calc 88 Estimated GFR > 60 Glucose 213 H POC Capillary Glucose 214 H Calcium 8.1 L Magnesium 2.1 Total Bilirubin 0.9 AST 61 H ALT 35 Alkaline Phosphatase 66 Total Creatine Kinase 501 H Total Protein 6.0 L Albumin 2.8 L Quality VTE Prophylaxis VTE prophylaxis: pharmacologic ordered
[2024-08-23] MEDS: levETIRAcetam Tablet 250 MG, levETIRAcetam Tablet 500 MG 750 MG PO (09:48)
[2024-08-23] MEDS: DULoxetine HCL 30 MG CAPSULE.DR PO (09:48)
[2024-08-23] MEDS: CHOLECALCIFEROL 5,000 UNITS TABLET 5000 UNITS PO (09:48)
[2024-08-23] MEDS: FOLIC ACID 1 MG TABLET PO (09:48)
[2024-08-23] MEDS: PREGABALIN (*CRX) 75 MG CAPSULE 150 MG PO ×3 (09:48→17:45)
[2024-08-23] MEDS: ENOXAPARIN 40 MG/0.4 ML SYRINGE SUB-Q (09:48)
[2024-08-23] MEDS: INSULIN ASPART (*BKC) 100 UNITS/ML SUB-Q ×3 (09:49→17:45)
[2024-08-23 12:09] LABS: Glucose Point of Care 251 mg/dl (65-105)
[2024-08-23 14:00] VITALS: BP 125/63; PULSE 71; RESP 20; TEMP 35.9; O2SAT 97
[2024-08-23 15:56] VITALS: BP 132/66; PULSE 66; RESP 17; O2SAT 97
[2024-08-23 16:51] LABS: Glucose Point of Care 251 mg/dl (65-105)
--- NOTE | 2024-08-23 18:18 | P.PNNEUR_ITS ---
Progress Note: A&P Assessment and Plan (1) Seizure-like activity: Code(s): R56.9 - Unspecified convulsions Status: Acute (2) Cough syncope: Code(s): R55 - Syncope and collapse; R05.4 - Cough syncope Status: Acute (3) Diabetic polyneuropathy: Code(s): E11.42 - Type 2 diabetes mellitus with diabetic polyneuropathy Status: Acute (4) H/O lumbosacral spine surgery: Code(s): Z98.890 - Other specified postprocedural states Status: Acute (5) Diabetes: Code(s): E11.9 - Type 2 diabetes mellitus without complications Status: Acute (6) Obesity (BMI 30-39.9): Code(s): E66.9 - Obesity, unspecified Status: Acute (7) Ulcer of right foot due to type 2 diabetes mellitus: Code(s): E11.621 - Type 2 diabetes mellitus with foot ulcer; L97.519 - Non-pressure chronic ulcer of other part of right foot with unspecified severity Status: Acute (8) Hypertension: Code(s): I10 - Essential (primary) hypertension Status: Acute (9) Rhabdomyolysis: Qualifiers: Rhabdomyolysis type: non-traumatic Qualified Code(s): M62.82 - Rhabdomyolysis Code(s): M62.82 - Rhabdomyolysis Status: Acute Plan I reviewed the video made by his son for the spell that he had today. The patient is on Keppra 750 mg twice a day and I shall raises to 1000 mg twice a day and he is already on pregabalin for him 50 mg a day which is also anticonvulsant use for diabetic polyneuropathy. Would encourage him to try and lose weight and exercise and regularly walk. Patient's family will encourage him in this regard. His EEG and MRI were reviewed and these did not show any acute or abnormal significant findings. White matter changes was noted MRI of the brain along with some changes in the brainstem. This of course consider chronic. He was found to have rhabdomyolysis upon admission had some metabolic problems have cleared up in his mental status also back to normal. His CPK has improved now to 501 Was on admission it was much higher over 6000. Vitamin-D very low under 12.8 and I noted that he is getting vitamin-D 500 units a day. A follow-up level can be performed by his family physician later on. LDL cholesterol was 33. carotid Doppler study was performed did not show any significant abnormalities. Subjective Date/time seen: 08/23/24 18:18 Interval history: The patient had a brief seizure-like spell after he had a bout of coughing. His son and a friend were present at the time when he had the spell. Son made a video of the spell and had a partial need to witness it. He has had spells like that in the past but he did not have jerking of the body like he had today and there was a concern. The nurse called me within 5 minutes of having the spell since the family members witnessed that and I advised them to get a serum prolactin level. The patient is already on Keppra 750 mg twice a day in addition to pregabalin which is prescribed for pain but is also anticonvulsant at 450 mg a day. The results of prolactin will be followed up. In the meanwhile the patient is feeling fairly well at this time. He denies any headache nausea vomiting. The daughter also had some concern regarding his mental confusion which also has cleared up now. This is attributed to the metabolic problem he has encountered when he 1st came in. Patient has not been walking well and tends to be mostly confined to his home. Review of Systems Review of Systems: All systems reviewed & are unremarkable except as noted in HPI and below Exam Narrative: Fully conscious alert oriented to self time place and person. No aphasia or dysarthria. Cranial nerves initial testing intact. Motor system normal power and tone in both upper lower limbs. No involuntary movements were seen. coordination finger-nose appears normal. Rapid alternating movements of Fingers and toes were also normal. Objective Data Vital Signs Vital Signs: Vital Signs - 24 hr 08/22/24 19:38 08/22/24 23:40 08/23/24 04:16 Temperature 98.1 F 97.6 F Pulse Rate 66 Respiratory Rate 22 H 20 Blood Pressure 120/76 123/68 Pulse Oximetry 98 98 Oxygen Delivery Room Air 08/23/24 09:20 08/23/24 14:00 08/23/24 15:56 Temperature 96.7 F L Pulse Rate 71 66 Respiratory Rate 20 17 Blood Pressure 125/63 132/66 Pulse Oximetry 97 97 Oxygen Delivery Room Air Intake/Output Intake/Output: Intake & Output 08/20/24 08/21/24 08/22/2423/24 23:59 23:59 23:59 23:59 Intake Total 3815.0 3231.6 1630 1670 Output Total 1350 3150 3575 1800 Balance 2465.0 81.6 -2599 -130 Meds/Results Medications: Active Medications Generic Name Dose Route Start Last Admin Trade Name Freq PRN Reason Stop Dose Admin Al Hydrox/Mg Hydrox/Simethicone 30 ml 08/19/24 02:38 Mag Hydrox/Al Hydrox/Simeth 30 Ml Udc PO Q6H PRN Indigestion Alprazolam 0.5 mg 08/22/24 07:39 08/23/24 01:00 Alprazolam (*Crx) 0.5 Mg Tablet PO 0.5 mg BID PRN Administration Anxiety Dextrose 12.5 gm 08/19/24 07:46 Dextrose 50% 25 Gm/50 Ml Syringe IV PUSH PRN PRN Hypoglycemia Protocol Duloxetine HCl 30 mg 08/22/24 09:00 08/23/24 09:48 Duloxetine Hcl 30 Mg Capsule.Dr PO 30 mg DAILY MATHEUS Administration Enoxaparin Sodium 40 mg 08/20/24 09:00 08/23/24 09:48 Enoxaparin 40 Mg/0.4 Ml Syringe SUB-Q 40 mg DAILY MATHEUS Administration Folic Acid 1 mg 08/22/24 09:00 08/23/24 09:48 Folic Acid 1 Mg Tablet PO 1 mg DAILY MATHEUS Administration Glucagon 1 mg 08/19/24 07:46 Glucagon For Inj 1 Mg Vial IM PRN PRN Hypoglycemia Protocol Glucose 15 gm 08/19/24 07:46 Glucose Oral Gel 15 Gm Of Glucse In 37.5 Gm Tube PO PRN PRN Hypoglycemia Protocol Dextrose 1,000 mls @ 100 mls/hr 08/19/24 07:46 Dextrose 5% 1,000 Ml IVPB PRN PRN Hypoglycemia Protocol Insulin Aspart 2 - 5 units 08/22/24 17:00 08/23/24 17:45 Insulin Aspart (*Bkc) 100 Units/Ml SUB-Q 3 units TIDWM MATHEUS Administration Protocol Levetiracetam 250 mg/ 750 mg 08/22/24 09:00 08/23/24 09:48 Levetiracetam 500 mg PO 750 mg Q12HR MATHUES Administration Lorazepam 2 mg 08/19/24 12:35 Lorazepam Inj (*Crx) 2 Mg/Ml Vial IV PUSH ONCE PRN seizure Ondansetron HCl 4 mg 08/19/24 02:38 Ondansetron Inj 4 Mg/2 Ml Vial IV PUSH Q6H PRN Nausea And Vomiting Polyethylene Glycol 17 gm 08/19/24 02:38 Polyethylene Glycol 3350 17 Gm Powd.Pack PO QAM PRN Constipation Pregabalin 150 mg 08/22/24 09:00 08/23/24 17:45 Pregabalin (*Crx) 75 Mg Capsule PO 150 mg TID MATHEUS Administration Vitamin D 5,000 units 08/22/24 09:00 08/23/24 09:48 Cholecalciferol 5,000 Units Tablet PO 08/29/24 08:59 5,000 units DAILY MATHEUS Administration Vitamin D 1,000 units 08/29/24 09:00 Cholecalciferol 1,000 Units Tablet PO DAILY [facility] Radiology Results: ITS Impressions Chest X-Ray 08/18/24 19:03 IMPRESSION: 1. No acute cardiopulmonary disease. Head CT 08/18/24 21:30 IMPRESSION: 1. Normal aging brain. Foot X-Ray 08/18/24 22:42 IMPRESSION: 1. No evidence of osteomyelitis. Renal Ultrasound 08/19/24 14:06 IMPRESSION: Right kidney is not visualized. The left kidney is normal. Brain MRI 08/19/24 17:32 IMPRESSION: 1. Mild nonspecific cerebral white matter disease and pontine disease, which likely represents chronic small vessel ischemic disease. Carotid Doppler Study 08/21/24 17:16 IMPRESSION: 1. <50% stenosis in the right internal carotid artery. 2. <50% stenosis in the left internal carotid artery. Venous Doppler Study 08/22/24 16:51 IMPRESSION: 1. Small amount of thrombus along side a peripheral IV in the right basilic vein at the forearm. Labs Labs: Laboratory Results - last 24 hr 08/22/24 08/23/24 08/23/24 19:44 05:11 07:59 WBC 7.4 RBC 4.50 L Hgb 13.7 L Hct 40.9 L MCV 90.9 MCH 30.4 MCHC 33.5 RDW 12.8 Plt Count 227 MPV 10.7 H Sodium 135 L Potassium 4.4 Chloride 106 Carbon Dioxide 26 Anion Gap 3 L BUN 17 Creatinine 0.90 Estim Creat Clear Calc 88 Estimated GFR > 60 Glucose 213 H POC Capillary Glucose 222 H 214 H Calcium 8.1 L Magnesium 2.1 Total Bilirubin 0.9 AST 61 H ALT 35 Alkaline Phosphatase 66 Total Creatine Kinase 501 H Total Protein 6.0 L Albumin 2.8 L 08/23/24 08/23/24 11:57 16:40 WBC RBC Hgb Hct MCV MCH MCHC RDW Plt Count MPV Sodium Potassium Chloride Carbon Dioxide Anion Gap BUN Creatinine Estim Creat Clear Calc Estimated GFR Glucose POC Capillary Glucose 251 H 251 H Calcium Magnesium Total Bilirubin AST ALT Alkaline Phosphatase Total Creatine Kinase Total Protein Albumin
[2024-08-23 20:00] VITALS: PULSE 72; RESP 18; O2SAT 98
[2024-08-23 20:24] LABS: Glucose Point of Care 255 mg/dl (65-105)
[2024-08-23] MEDS: levETIRAcetam 500 MG TABLET 1000 MG PO (20:55)
[2024-08-23 21:21] VITALS: BP 126/70; PULSE 72; RESP 18; TEMP 36.6; O2SAT 98
[2024-08-24 05:55] LABS: Hematocrit 40.9 % (42.0-52.0); Hemoglobin 13.8 g/dL (14.0-18.0); Mean Corpuscular HGB Conc 33.7 g/dl (32-36); Mean Corpuscular Hemoglobin 31.1 pg (26-34); Mean Corpuscular Volume 92.1 fl (80-100); Mean Platelet Volume 10.7 fl (7.4-10.4); Platelet Count Result 244 k/mm3 (150-375); Red Blood Count 4.44 M/mm3 (4.6-6.20); Red Cell Distribution Width 12.9 % (11.5-14.5); White Blood Count 6.8 K/mm3 (4.5-10.0)
[2024-08-24 06:00] VITALS: BP 139/70; PULSE 62; RESP 16; TEMP 36.6; O2SAT 98
[2024-08-24 06:03] LABS: Alanine Aminotransferase 36 U/L (6-50); Albumin Level 2.9 g/dL (3.5-5.1); Alkaline Phosphatase 69 U/L (38-126); Anion Gap 3 mmol/L (4-12); Aspartate Amino Transferase 49 U/L (17-59); Bilirubin,Total 0.7 mg/dL (0.2-1.3); Blood Urea Nitrogen 13 mg/dL (9-20); Calcium 8.2 mg/dL (8.4-10.2); Carbon Dioxide 31 mmol/L (22-30); Chloride 102 mmol/L (98-107); Creatine Kinase 291 U/L (55-170); Estimated CRCL calculation 88 ml/min; Estimated Glomerular Filt Rate > 60; Glucose 229 mg/dL (65-110); Potassium 4.7 mmol/L (3.4-5.0); Sodium 136 mmol/L (137-145)
--- NOTE | 2024-08-24 07:53 | P.PNIM_ITS ---
Progress Note: A&P Assessment and Plan (1) Seizure-like activity: Code(s): R56.9 - Unspecified convulsions Status: Acute Assessment and Plan: Patient had seizure-like activity each lasting 10 seconds and received Ativan. Keppra added. Head CT shows normal aging brain. MRI of the brain shows mild nonspecific cerebral white matter disease and pontine disease likely represents chronic small vessel ischemic disease. Carotid Dopplers shows less than 50% stenosis of the bilateral internal carotid arteries. EEG shows normal record during wakefulness, drowsiness and sleep. Neurology consulted and appreciate their input. Patient is AO and is asymptomatic at this time with no concern for of meningitis/encephalitis. Patient now having paroxysmal spasms related to coughing and family is concerned that he appears to have paused respirations. They do no believe related to him falling asleep. No postictal confusion VitD level low so will replace. Folate low end of normal so will also replace. Continue Keppra. Neuro recommended backing down on Lyrica which will start today. Resume duloxitine at half dose. . Continue seizure precautions and p.r.n. Ativan PT/OT. Continue Neuro checks. Check Apnea link- which pt refused 08/24- keppra was increased to 1,000mg bid per neurology, continue pregabalin for him 50 mg a day which is also anticonvulsant use for diabetic polyneuropathy. neurology followin: Would encourage him to try and lose weight and exercise and regularly walk. Patient's family will encourage him in this regard. His EEG and MRI were reviewed and these did not show any acute or abnormal significant findings. White matter changes was noted MRI of the brain along with some changes in the brainstem. (2) Diabetes: Code(s): E11.9 - Type 2 diabetes mellitus without complications Status: Acute Assessment and Plan: A1c 9.2%. The patient's blood glucose was reviewed on 08/22 Glucose better controlled today and actually had a low last night at 51. Continue AccuCheks covering with sliding scale. Hypoglycemia protocol available as needed. Lantuis not given last night. Eating normally. will restart lantus 10 units as bs had been elevated (3) SEBLE (acute kidney injury): Code(s): N17.9 - Acute kidney failure, unspecified Status: Acute Assessment and Plan: Creatinine was 1.5 on admission. Probably related to rhabdomyolysis and/or dehydration. Creatinine has trended down to 1.1 and stable. Monitor urine output, electrolytes and renal function. improving (4) Rhabdomyolysis: Qualifiers: Rhabdomyolysis type: non-traumatic Qualified Code(s): M62.82 - Rhabdomyolysis Code(s): M62.82 - Rhabdomyolysis Status: Acute Assessment and Plan: Patient with rhabdomyolysis on admission felt related to immobility and possibly unrecognized seizures at home. Total CK was 6500 but has trended down to 501 now. Crestor stopped IV fluids stopped monitor improved (5) Ulcer of right foot due to type 2 diabetes mellitus: Code(s): E11.621 - Type 2 diabetes mellitus with foot ulcer; L97.519 - Non-pressure chronic ulcer of other part of right foot with unspecified severity Status: Acute Assessment and Plan: Foot x-ray was negative for any evidence of osteomyelitis. The wound does not appear infected. Blood cultures are no growth to date. Continue local wound dressing as per wound care recommendations Plan Venous doppler: Small amount of thrombus along side a peripheral IV in the right basilic vein at the forearm. Usually self limiting- will monitor for now- pt will be on lovenox while in the hosptial- once discharge- will need a follow up doppler ultrasound to observe resolution of small superficial thrombus. DVT prophylaxis -Lovenox; check RUE doppler Code Status - Full Code Discharge - discharge when accepted at facility. Time Spent With Patient Time with patient: Greater than 35 minutes Subjective Date/time seen: 08/24/24 07:53 Interval history: pt had another episode that was recorded per family. Dr Castellanos happened to be near by and was able to review and assess pt. His Keppra dose was increased to 1000 mg bid, he will continue pregabalin. Review of Systems Review of Systems: All systems reviewed & are unremarkable except as noted in HPI and below (HPI) Constitutional: Constitutional: Denies chills Eyes: Eyes: Denies blurry vision Cardiovascular: Cardiovascular: Denies chest pain Respiratory: Respiratory: Reports cough Gastrointestinal: Gastrointestinal: Denies abdominal pain Exam Narrative: Gen - alert, oriented, pleasant Chest -distant clear breath sounds. CV - RRR S1/S2. Telemetry showing no significant dysrhythmias Abd - Soft, obese, NT Ext -trace pedal edema. 1+ right UE edema Neuro - Alert and appropriate Nonfocal exam. Psych - Nml mood and affect Skin - Warm and dry. right distal plantar with round ulcer. Left elbow dressing clean, dry and intact Const: General: comfortable, no acute distress, well developed, alert, awake and obese Nutritional Appearance: obese HENMT: Head: normal to inspection, normocephalic and atraumatic Ears: hearing grossly normal bilaterally Face/Nose/Sinus: normal facial exam Face and sinus: normal facial exam Eyes: General: appearance normal, both eyes and all related structures Pupils: Equal, round and reactive pupils present EOM: EOMs intact bilaterally Neck: Neck: full ROM, no lymphadenopathy and no JVD Thyroid: thyroid normal Lymphatic: no lymphadenopathy noted Resp: Effort & Inspection: normal respiratory effort and able to speak in complete sentences Auscultation: clear to auscultation bilaterally Cardio: Jugular venous distension: no JVD Rate: regular rate Rhythm: regular rhythm Heart sounds: S1 normal heart sound present and S2 normal heart sound present GI: Inspection: Pannus present and obesity : General: Yes deferred Skin: Rashes: no rashes Wounds: no wounds Neuro: General: no focal motor deficits and CN's II-XI intact bilaterally C ranial nerves: Yes CN's II-XII intact bilaterally and Yes Equal, round and reactive pupils present Cognition (Neuro): abnormal cognition ( lethargy/obtunded) Gait exam (Neuro): Unable to assess gait Motor exam (neuro): 5/5 motor strength present throughout Extrem: General: normal to inspection, full ROM, no joint enlargement and no pedal edema Other: right foot ulcer Objective Data Vital Signs Vital Signs: Vital Signs - 24 hr 08/23/24 09:20 08/23/24 14:00 08/23/24 15:56 Temperature 96.7 F L Pulse Rate 71 66 Respiratory Rate 20 17 Blood Pressure 125/63 132/66 Pulse Oximetry 97 97 Oxygen Delivery Room Air 08/23/24 21:21 08/23/24 20:00 08/24/24 06:00 Temperature 97.8 F 97.9 F Pulse Rate 72 72 62 Respiratory Rate 18 18 16 Blood Pressure 126/70 139/70 Pulse Oximetry 98 98 98 Oxygen Delivery Room Air Intake/Output Intake/Output: Intake & Output 08/21/24 08/22/24 08/23/24 08/24/24 23:59 23:59 23:59 23:59 Intake Total 3231.6 1630 1670 200 Output Total 3150 9030 1800 1000 Balance 81.6 -2697 -130 -254 Meds/Results Medications: Active Medications Generic Name Dose Route Start Last Admin Trade Name Freq PRN Reason Stop Dose Admin Al Hydrox/Mg Hydrox/Simethicone 30 ml 08/19/24 02:38 Mag Hydrox/Al Hydrox/Simeth 30 Ml Udc PO Q6H PRN Indigestion Alprazolam 0.5 mg 08/22/24 07:39 08/23/24 20:55 Alprazolam (*Crx) 0.5 Mg Tablet PO 0.5 mg BID PRN Administration Anxiety Dextrose 12.5 gm 08/19/24 07:46 Dextrose 50% 25 Gm/50 Ml Syringe IV PUSH PRN PRN Hypoglycemia Protocol Duloxetine HCl 30 mg 08/22/24 09:00 08/23/24 09:48 Duloxetine Hcl 30 Mg Capsule.Dr PO 30 mg DAILY MATHEUS Administration Enoxaparin Sodium 40 mg 08/20/24 09:00 08/23/24 09:48 Enoxaparin 40 Mg/0.4 Ml Syringe SUB-Q 40 mg DAILY MATHEUS Administration Folic Acid 1 mg 08/22/24 09:00 08/23/24 09:48 Folic Acid 1 Mg Tablet PO 1 mg DAILY MATHEUS Administration Glucagon 1 mg 08/19/24 07:46 Glucagon For Inj 1 Mg Vial IM PRN PRN Hypoglycemia Protocol Glucose 15 gm 08/19/24 07:46 Glucose Oral Gel 15 Gm Of Glucse In 37.5 Gm Tube PO PRN PRN Hypoglycemia Protocol Dextrose 1,000 mls @ 100 mls/hr 08/19/24 07:46 Dextrose 5% 1,000 Ml IVPB PRN PRN Hypoglycemia Protocol Insulin Aspart 2 - 5 units 08/22/24 17:00 08/23/24 17:45 Insulin Aspart (*Bkc) 100 Units/Ml SUB-Q 3 units TIDWM MATHEUS Administration Protocol Levetiracetam 1,000 mg 08/23/24 21:00 08/23/24 20:55 Levetiracetam 500 Mg Tablet PO 1,000 mg Q12HR MATHEUS Administration Lorazepam 2 mg 08/19/24 12:35 Lorazepam Inj (*Crx) 2 Mg/Ml Vial IV PUSH ONCE PRN seizure Ondansetron HCl 4 mg 08/19/24 02:38 Ondansetron Inj 4 Mg/2 Ml Vial IV PUSH Q6H PRN Nausea And Vomiting Polyethylene Glycol 17 gm 08/19/24 02:38 Polyethylene Glycol 3350 17 Gm Powd.Pack PO QAM PRN Constipation Pregabalin 150 mg 08/22/24 09:00 08/23/24 17:45 Pregabalin (*Crx) 75 Mg Capsule PO 150 mg TID MATHEUS Administration Vitamin D 5,000 units 08/22/24 09:00 08/23/24 09:48 Cholecalciferol 5,000 Units Tablet PO 08/29/24 08:59 5,000 units DAILY MATHEUS Administration Vitamin D 1,000 units 08/29/24 09:00 Cholecalciferol 1,000 Units Tablet PO DAILY [facility] Radiology Results: ITS Impressions Chest X-Ray 08/18/24 19:03 IMPRESSION: 1. No acute cardiopulmonary disease. Head CT 08/18/24 21:30 IMPRESSION: 1. Normal aging brain. Foot X-Ray 08/18/24 22:42 IMPRESSION: 1. No evidence of osteomyelitis. Renal Ultrasound 08/19/24 14:06 IMPRESSION: Right kidney is not visualized. The left kidney is normal. Brain MRI 08/19/24 17:32 IMPRESSION: 1. Mild nonspecific cerebral white matter disease and pontine disease, which likely represents chronic small vessel ischemic disease. Carotid Doppler Study 08/21/24 17:16 IMPRESSION: 1. <50% stenosis in the right internal carotid artery. 2. <50% stenosis in the left internal carotid artery. Venous Doppler Study 08/22/24 16:51 IMPRESSION: 1. Small amount of thrombus along side a peripheral IV in the right basilic vein at the forearm. Labs Labs: Laboratory Results - last 24 hr 08/23/24 08/23/24 08/23/24 05:11 07:59 11:57 WBC RBC Hgb Hct MCV MCH MCHC RDW Plt Count MPV Sodium Potassium Chloride Carbon Dioxide Anion Gap BUN Creatinine Estim Creat Clear Calc Estimated GFR Glucose POC Capillary Glucose 214 H 251 H Calcium Magnesium Total Bilirubin AST ALT Alkaline Phosphatase Total Creatine Kinase 501 H Total Protein Albumin 08/23/24 08/23/24 08/24/24 16:40 19:48 05:36 WBC 6.8 RBC 4.44 L Hgb 13.8 L Hct 40.9 L MCV 92.1 MCH 31.1 MCHC 33.7 RDW 12.9 Plt Count 244 MPV 10.7 H Sodium 136 L Potassium 4.7 Chloride 102 Carbon Dioxide 31 H Anion Gap 3 L BUN 13 Creatinine 0.90 Estim Creat Clear Calc 88 Estimated GFR > 60 Glucose 229 H POC Capillary Glucose 251 H 255 H Calcium 8.2 L Magnesium 2.0 Total Bilirubin 0.7 AST 49 ALT 36 Alkaline Phosphatase 69 Total Creatine Kinase 291 H Total Protein 6.0 L Albumin 2.9 L Quality VTE Prophylaxis VTE prophylaxis: pharmacologic ordered
[2024-08-24] MEDS: DULoxetine HCL 30 MG CAPSULE.DR PO (08:03)
[2024-08-24] MEDS: PREGABALIN (*CRX) 75 MG CAPSULE 150 MG PO ×3 (08:03→16:52)
[2024-08-24] MEDS: levETIRAcetam 500 MG TABLET 1000 MG PO ×2 (08:03→20:48)
[2024-08-24] MEDS: CHOLECALCIFEROL 5,000 UNITS TABLET 5000 UNITS PO (08:03)
[2024-08-24] MEDS: FOLIC ACID 1 MG TABLET PO (08:04)
[2024-08-24] MEDS: ENOXAPARIN 40 MG/0.4 ML SYRINGE SUB-Q (08:04)
[2024-08-24 08:10] LABS: Glucose Point of Care 235 mg/dl (65-105)
[2024-08-24] MEDS: INSULIN ASPART (*BKC) 100 UNITS/ML SUB-Q ×4 (08:20→20:48)
[2024-08-24 11:48] LABS: Glucose Point of Care 254 mg/dl (65-105)
[2024-08-24 14:00] VITALS: BP 126/67; PULSE 66; RESP 18; TEMP 36.4; O2SAT 100
[2024-08-24 17:01] LABS: Glucose Point of Care 263 mg/dl (65-105)
[2024-08-24 20:00] VITALS: PULSE 70; RESP 18; O2SAT 99
[2024-08-24 20:09] LABS: Glucose Point of Care 323 mg/dl (65-105)
[2024-08-24 20:38] VITALS: BP 117/75; PULSE 70; RESP 18; TEMP 36.4; O2SAT 99
[2024-08-24] MEDS: INSULIN GLARGINE (*BKC) 100 UNITS/ML 10 UNITS SUB-Q (20:47)
[2024-08-24] MEDS: ALPRAZolam (*CRX) 0.5 MG TABLET PO (20:48)
[2024-08-25 06:00] VITALS: BP 113/67; PULSE 64; RESP 18; TEMP 36.2; O2SAT 100
[2024-08-25 06:10] LABS: Hematocrit 41.9 % (42.0-52.0); Hemoglobin 13.6 g/dL (14.0-18.0); Mean Corpuscular HGB Conc 32.5 g/dl (32-36); Mean Corpuscular Hemoglobin 29.9 pg (26-34); Mean Corpuscular Volume 92.1 fl (80-100); Mean Platelet Volume 10.8 fl (7.4-10.4); Platelet Count Result 285 k/mm3 (150-375); Red Blood Count 4.55 M/mm3 (4.6-6.20); Red Cell Distribution Width 12.7 % (11.5-14.5); White Blood Count 6.6 K/mm3 (4.5-10.0)
[2024-08-25 06:23] LABS: Alanine Aminotransferase 34 U/L (6-50); Albumin Level 2.9 g/dL (3.5-5.1); Alkaline Phosphatase 70 U/L (38-126); Anion Gap 4 mmol/L (4-12); Aspartate Amino Transferase 46 U/L (17-59); Bilirubin,Total 0.7 mg/dL (0.2-1.3); Blood Urea Nitrogen 12 mg/dL (9-20); Calcium 8.2 mg/dL (8.4-10.2); Carbon Dioxide 31 mmol/L (22-30); Chloride 101 mmol/L (98-107); Creatine Kinase 192 U/L (55-170); Estimated CRCL calculation 87 ml/min; Estimated Glomerular Filt Rate > 60; Glucose 227 mg/dL (65-110); Sodium 136 mmol/L (137-145)
[2024-08-25 07:56] LABS: Glucose Point of Care 206 mg/dl (65-105)
--- NOTE | 2024-08-25 08:08 | P.PNIM_ITS ---
Progress Note: A&P Assessment and Plan (1) Seizure-like activity: Code(s): R56.9 - Unspecified convulsions Status: Acute Assessment and Plan: Patient had seizure-like activity each lasting 10 seconds and received Ativan. Keppra added. Head CT shows normal aging brain. MRI of the brain shows mild nonspecific cerebral white matter disease and pontine disease likely represents chronic small vessel ischemic disease. Carotid Dopplers shows less than 50% stenosis of the bilateral internal carotid arteries. EEG shows normal record during wakefulness, drowsiness and sleep. Neurology consulted and appreciate their input. Patient is AO and is asymptomatic at this time with no concern for of meningitis/encephalitis. Patient now having paroxysmal spasms related to coughing and family is concerned that he appears to have paused respirations. They do no believe related to him falling asleep. No postictal confusion VitD level low so will replace. Folate low end of normal so will also replace. Continue Keppra. Neuro recommended backing down on Lyrica which will start today. Resume duloxitine at half dose. . Continue seizure precautions and p.r.n. Ativan PT/OT. Continue Neuro checks. Check Apnea link- which pt refused 08/24- keppra was increased to 1,000mg bid per neurology, continue pregabalin for him 50 mg a day which is also anticonvulsant use for diabetic polyneuropathy. neurology followin: Would encourage him to try and lose weight and exercise and regularly walk. Patient's family will encourage him in this regard. His EEG and MRI were reviewed and these did not show any acute or abnormal significant findings. White matter changes was noted MRI of the brain along with some changes in the brainstem. 08/25- no events continue regimen (2) Diabetes: Code(s): E11.9 - Type 2 diabetes mellitus without complications Status: Acute Assessment and Plan: A1c 9.2%. The patient's blood glucose was reviewed on 08/22 Glucose better controlled today and actually had a low last night at 51. Continue AccuCheks covering with sliding scale. Hypoglycemia protocol available as needed. Lantuis not given last night. Eating normally. will restart lantus 10 units as bs had been elevated bs had nee somewhat elevated in am- will increase to 15 units (3) SEBLE (acute kidney injury): Code(s): N17.9 - Acute kidney failure, unspecified Status: Acute Assessment and Plan: Creatinine was 1.5 on admission. Probably related to rhabdomyolysis and/or dehydration. Creatinine has trended down to 1.1 and stable. Monitor urine output, electrolytes and renal function. improving (4) Rhabdomyolysis: Qualifiers: Rhabdomyolysis type: non-traumatic Qualified Code(s): M62.82 - Rhabdomyolysis Code(s): M62.82 - Rhabdomyolysis Status: Acute Assessment and Plan: Patient with rhabdomyolysis on admission felt related to immobility and possibly unrecognized seizures at home. Total CK was 6500 but has trended down to 501 now. Crestor stopped IV fluids stopped monitor improved (5) Ulcer of right foot due to type 2 diabetes mellitus: Code(s): E11.621 - Type 2 diabetes mellitus with foot ulcer; L97.519 - Non-pressure chronic ulcer of other part of right foot with unspecified severity Status: Acute Assessment and Plan: Foot x-ray was negative for any evidence of osteomyelitis. The wound does not appear infected. Blood cultures are no growth to date. Continue local wound dressing as per wound care recommendations Plan Venous doppler: Small amount of thrombus along side a peripheral IV in the right basilic vein at the forearm. Usually self limiting- will monitor for now- pt will be on lovenox while in the hosptial- once discharge- will need a follow up doppler ultrasound to observe resolution of small superficial thrombus. DVT prophylaxis -Lovenox; check RUE doppler Code Status - Full Code Discharge - discharge when accepted at facility. Time Spent With Patient Time with patient: Greater than 35 minutes Subjective Date/time seen: 08/25/24 08:08 Interval history: pt is seen and examined. On Keppra 1000 mg bid, pregabalin. no acute events overnight. waiting for placement. pain free, still some coughing. Review of Systems Review of Systems: All systems reviewed & are unremarkable except as noted in HPI and below (HPI) ROS unobtainable: Yes unobtainable due to mental status ( lethargy/obtundation) Constitutional: Constitutional: Denies chills Eyes: Eyes: Denies blurry vision Cardiovascular: Cardiovascular: Denies chest pain Respiratory: Respiratory: Reports cough Gastrointestinal: Gastrointestinal: Denies abdominal pain Exam Narrative: Gen - alert, oriented, pleasant Chest -distant clear breath sounds. CV - RRR S1/S2. Telemetry showing no significant dysrhythmias Abd - Soft, obese, NT Ext -trace pedal edema. 1+ right UE edema Neuro - Alert and appropriate Nonfocal exam. Psych - Nml mood and affect Skin - Warm and dry. right distal plantar with round ulcer. Left elbow dressing clean, dry and intact Const: General: comfortable, no acute distress, well developed, alert, awake, ill appearing chronically, lethargic, patient obtunded and obese Nutritional Appearance: obese Orientation/consciousness: patient obtunded and lethargic HENMT: Head: normal to inspection, normocephalic and atraumatic Ears: hearing grossly normal bilaterally Face/Nose/Sinus: normal facial exam Face and sinus: normal facial exam Eyes: General: appearance normal, both eyes and all related structures Pupils: Equal, round and reactive pupils present EOM: EOMs intact bilaterally Neck: Neck: full ROM, no lymphadenopathy and no JVD Thyroid: thyroid normal Lymphatic: no lymphadenopathy noted Resp: Effort & Inspection: normal respiratory effort and able to speak in complete sentences Auscultation: clear to auscultation bilaterally Cardio: Jugular venous distension: no JVD Rate: regular rate Rhythm: regular rhythm Heart sounds: S1 normal heart sound present and S2 normal heart sound present GI: Inspection: Pannus present and obesity : General: Yes deferred Skin: Rashes: no rashes Wounds: no wounds Neuro: General: no focal motor deficits, CN's II-XI intact bilaterally, patient obtunded and Unable to assess gait Cranial nerves: Yes CN's II-XII intact bilaterally and Yes Equal, round and reactive pupils present Cognition (Neuro): abnormal cognition ( lethargy/obtunded) Gait exam (Neuro): Unable to assess gait Motor exam (neuro): 5/5 motor strength present throughout Extrem: General: normal to inspection, full ROM, no joint enlargement and no pedal edema Other: right foot ulcer Objective Data Vital Signs Vital Signs: Vital Signs - 24 hr 08/24/24 14:00 08/24/24 20:38 08/24/24 20:00 Temperature 97.6 F 97.5 F L Pulse Rate 66 70 70 Respiratory Rate 18 18 18 Blood Pressure 126/67 117/75 Pulse Oximetry 100 99 99 Oxygen Delivery Room Air 08/25/24 06:00 Temperature 97.1 F L Pulse Rate 64 Respiratory Rate 18 Blood Pressure 113/67 Pulse Oximetry 100 Oxygen Delivery Intake/Output Intake/Output: Intake & Output 08/22/24 08/23/24 08/24/24 08/25/24 23:59 23:59 23:59 23:59 Intake Total 1630 1670 920 350 Output Total 3575 1800 2150 350 Balance -6731 -498 -1230 0 Meds/Results Medications: Active Medications Generic Name Dose Route Start Last Admin Trade Name Freq PRN Reason Stop Dose Admin Al Hydrox/Mg Hydrox/Simethicone 30 ml 08/19/24 02:38 Mag Hydrox/Al Hydrox/Simeth 30 Ml Udc PO Q6H PRN Indigestion Alprazolam 0.5 mg 08/22/24 07:39 08/24/24 20:48 Alprazolam (*Crx) 0.5 Mg Tablet PO 0.5 mg BID PRN Administration Anxiety Dextrose 12.5 gm 08/24/24 20:23 Dextrose 50% 25 Gm/50 Ml Syringe IV PUSH PRN PRN Hypoglycemia Protocol Duloxetine HCl 30 mg 08/22/24 09:00 08/24/24 08:03 Duloxetine Hcl 30 Mg Capsule.Dr PO 30 mg DAILY MATHEUS Administration Enoxaparin Sodium 40 mg 08/20/24 09:00 08/24/24 08:04 Enoxaparin 40 Mg/0.4 Ml Syringe SUB-Q 40 mg DAILY [facility]US Administration Folic Acid 1 mg 08/22/24 09:00 08/24/24 08:04 Folic Acid 1 Mg Tablet PO 1 mg DAILY [facility] Administration Glucagon 1 mg 08/24/24 20:23 Glucagon For Inj 1 Mg Vial IM PRN PRN Hypoglycemia Protocol Glucose 15 gm 08/24/24 20:23 Glucose Oral Gel 15 Gm Of Glucse In 37.5 Gm Tube PO PRN PRN Hypoglycemia Protocol Dextrose 1,000 mls @ 100 mls/hr 08/24/24 20:23 Dextrose 5% 1,000 Ml IVPB PRN PRN Hypoglycemia Protocol Insulin Aspart 2 - 5 units 08/22/24 17:00 08/24/24 17:10 Insulin Aspart (*Bkc) 100 Units/Ml SUB-Q 3 units TIDWM MATHEUS Administration Protocol Insulin Aspart 1 - 3 units 08/24/24 21:00 08/24/24 20:48 Insulin Aspart (*Bkc) 100 Units/Ml SUB-Q 2 units HS MAT[facility]US Administration Protocol Insulin Glargine 10 units 08/24/24 21:00 08/24/24 20:47 Insulin Glargine (*Bkc) 100 Units/Ml SUB-Q 10 units HS [facility] Administration Levetiracetam 1,000 mg 08/23/24 21:00 08/24/24 20:48 Levetiracetam 500 Mg Tablet PO 1,000 mg Q12HR MAT[facility]US Administration Lorazepam 2 mg 08/19/24 12:35 Lorazepam Inj (*Crx) 2 Mg/Ml Vial IV PUSH ONCE PRN seizure Ondansetron HCl 4 mg 08/19/24 02:38 Ondansetron Inj 4 Mg/2 Ml Vial IV PUSH Q6H PRN Nausea And Vomiting Polyethylene Glycol 17 gm 08/19/24 02:38 Polyethylene Glycol 3350 17 Gm Powd.Pack PO QAM PRN Constipation Pregabalin 150 mg 08/22/24 09:00 08/24/24 16:52 Pregabalin (*Crx) 75 Mg Capsule PO 150 mg TID [facility] Administration Vitamin D 5,000 units 08/22/24 09:00 08/24/24 08:03 Cholecalciferol 5,000 Units Tablet PO 08/29/24 08:59 5,000 units DAILY [facility] Administration Vitamin D 1,000 units 08/29/24 09:00 Cholecalciferol 1,000 Units Tablet PO DAILY [facility] Radiology Results: ITS Impressions Chest X-Ray 08/18/24 19:03 IMPRESSION: 1. No acute cardiopulmonary disease. Head CT 08/18/24 21:30 IMPRESSION: 1. Normal aging brain. Foot X-Ray 08/18/24 22:42 IMPRESSION: 1. No evidence of osteomyelitis. Renal Ultrasound 08/19/24 14:06 IMPRESSION: Right kidney is not visualized. The left kidney is normal. Brain MRI 08/19/24 17:32 IMPRESSION: 1. Mild nonspecific cerebral white matter disease and pontine disease, which likely represents chronic small vessel ischemic disease. Carotid Doppler Study 08/21/24 17:16 IMPRESSION: 1. <50% stenosis in the right internal carotid artery. 2. <50% stenosis in the left internal carotid artery. Venous Doppler Study 08/22/24 16:51 IMPRESSION: 1. Small amount of thrombus along side a peripheral IV in the right basilic vein at the forearm. Labs Labs: Laboratory Results - last 24 hr 08/24/24 08/24/24 08/24/24 07:55 11:41 16:45 WBC RBC Hgb Hct MCV MCH MCHC RDW Plt Count MPV Sodium Potassium Chloride Carbon Dioxide Anion Gap BUN Creatinine Estim Creat Clear Calc Estimated GFR Glucose POC Capillary Glucose 235 H 254 H 263 H Calcium Magnesium Total Bilirubin AST ALT Alkaline Phosphatase Total Creatine Kinase Total Protein Albumin 08/24/24 08/25/24 08/25/24 20:02 05:05 07:50 WBC 6.6 RBC 4.55 L Hgb 13.6 L Hct 41.9 L MCV 92.1 MCH 29.9 MCHC 32.5 RDW 12.7 Plt Count 285 MPV 10.8 H Sodium 136 L Potassium 4.0 Chloride 101 Carbon Dioxide 31 H Anion Gap 4 BUN 12 Creatinine 0.90 Estim Creat Clear Calc 87 Estimated GFR > 60 Glucose 227 H POC Capillary Glucose 323 H 206 H Calcium 8.2 L Magnesium 2.0 Total Bilirubin 0.7 AST 46 ALT 34 Alkaline Phosphatase 70 Total Creatine Kinase 192 H Total Protein 6.0 L Albumin 2.9 L Quality VTE Prophylaxis VTE prophylaxis: pharmacologic ordered
[2024-08-25 08:19] VITALS: BP 134/66; PULSE 61; RESP 16; TEMP 36.3; O2SAT 96
[2024-08-25] MEDS: levETIRAcetam 500 MG TABLET 1000 MG PO ×2 (08:21→21:31)
[2024-08-25 08:22] VITALS: PULSE 61; RESP 16; O2SAT 96
[2024-08-25] MEDS: CHOLECALCIFEROL 5,000 UNITS TABLET 5000 UNITS PO (08:22)
[2024-08-25] MEDS: FOLIC ACID 1 MG TABLET PO (08:22)
[2024-08-25] MEDS: DULoxetine HCL 30 MG CAPSULE.DR PO (08:22)
[2024-08-25] MEDS: PREGABALIN (*CRX) 75 MG CAPSULE 150 MG PO ×3 (08:22→16:46)
[2024-08-25] MEDS: ENOXAPARIN 40 MG/0.4 ML SYRINGE SUB-Q (08:23)
[2024-08-25] MEDS: INSULIN ASPART (*BKC) 100 UNITS/ML SUB-Q ×4 (08:25→21:30)
[2024-08-25 11:38] LABS: Glucose Point of Care 243 mg/dl (65-105)
[2024-08-25 14:00] VITALS: BP 110/56; PULSE 70; RESP 18; TEMP 36.7; O2SAT 99
[2024-08-25 16:43] LABS: Glucose Point of Care 276 mg/dl (65-105)
[2024-08-25 20:00] VITALS: PULSE 65; RESP 18; O2SAT 100
[2024-08-25 20:58] LABS: Glucose Point of Care 308 mg/dl (65-105)
[2024-08-25 21:20] VITALS: BP 124/64; PULSE 65; RESP 18; TEMP 36.6; O2SAT 100
[2024-08-25] MEDS: INSULIN GLARGINE (*BKC) 100 UNITS/ML 15 UNITS SUB-Q (21:31)
[2024-08-25] MEDS: ALPRAZolam (*CRX) 0.5 MG TABLET PO (21:31)
[2024-08-26 05:28] LABS: Methylmalonic Acid 215 nmol/L (69-390)
[2024-08-26 06:00] VITALS: BP 131/90; PULSE 66; RESP 18; TEMP 36.2; O2SAT 100
[2024-08-26 08:04] LABS: Glucose Point of Care 231 mg/dl (65-105)
[2024-08-26] MEDS: INSULIN ASPART (*BKC) 100 UNITS/ML SUB-Q ×4 (08:45→20:23)
[2024-08-26] MEDS: PREGABALIN (*CRX) 75 MG CAPSULE 150 MG PO ×3 (08:49→17:16)
[2024-08-26] MEDS: DULoxetine HCL 30 MG CAPSULE.DR PO (08:49)
[2024-08-26] MEDS: levETIRAcetam 500 MG TABLET 1000 MG PO ×2 (08:49→20:19)
[2024-08-26] MEDS: FOLIC ACID 1 MG TABLET PO (08:49)
[2024-08-26] MEDS: CHOLECALCIFEROL 5,000 UNITS TABLET 5000 UNITS PO (08:49)
[2024-08-26] MEDS: ENOXAPARIN 40 MG/0.4 ML SYRINGE SUB-Q (08:49)
--- NOTE | 2024-08-26 09:01 | PCOTNOTE ---
The patient treatment was not able to be completed. Patient just now eating. Will plan to continue treatment per plan of care.
[2024-08-26 09:09] LABS: Prolactin 7.1 ng/mL (2.0-18.0)
[2024-08-26 11:46] LABS: Glucose Point of Care 234 mg/dl (65-105)
[2024-08-26 14:00] VITALS: BP 117/59; PULSE 69; RESP 18; TEMP 36.6; O2SAT 96
--- NOTE | 2024-08-26 15:17 | P.PNIM_ITS ---
Progress Note: A&P Assessment and Plan (1) Seizure-like activity: Code(s): R56.9 - Unspecified convulsions Status: Acute Assessment and Plan: Patient had seizure-like activity each lasting 10 seconds and received Ativan. Keppra added. Head CT shows normal aging brain. MRI of the brain shows mild nonspecific cerebral white matter disease and pontine disease likely represents chronic small vessel ischemic disease. Carotid Dopplers shows less than 50% stenosis of the bilateral internal carotid arteries. EEG shows normal record during wakefulness, drowsiness and sleep. Neurology consulted and appreciate their input. Patient is AO and is asymptomatic at this time with no concern for of meningitis/encephalitis. Patient now having paroxysmal spasms related to coughing and family is concerned that he appears to have paused respirations. They do no believe related to him falling asleep. No postictal confusion VitD level low so will replace. Folate low end of normal so will also replace. Continue Keppra. Neuro recommended backing down on Lyrica which will start today. Resume duloxitine at half dose. . Continue seizure precautions and p.r.n. Ativan PT/OT. Continue Neuro checks. Check Apnea link- which pt refused 08/24- keppra was increased to 1,000mg bid per neurology, continue pregabalin for him 50 mg a day which is also anticonvulsant use for diabetic polyneuropathy. neurology followin: Would encourage him to try and lose weight and exercise and regularly walk. Patient's family will encourage him in this regard. His EEG and MRI were reviewed and these did not show any acute or abnormal significant findings. White matter changes was noted MRI of the brain along with some changes in the brainstem. 08/25- no events continue regimen (2) Diabetes: Code(s): E11.9 - Type 2 diabetes mellitus without complications Status: Acute Assessment and Plan: A1c 9.2%. The patient's blood glucose was reviewed on 08/22 Glucose better controlled today and actually had a low last night at 51. Continue AccuCheks covering with sliding scale. Hypoglycemia protocol available as needed. Lantuis not given last night. Eating normally. will restart lantus 10 units as bs had been elevated bs had nee somewhat elevated in am- will increase to 15 units (3) SEBLE (acute kidney injury): Code(s): N17.9 - Acute kidney failure, unspecified Status: Acute Assessment and Plan: Creatinine was 1.5 on admission. Probably related to rhabdomyolysis and/or dehydration. Creatinine has trended down to 1.1 and stable. Monitor urine output, electrolytes and renal function. improving (4) Rhabdomyolysis: Qualifiers: Rhabdomyolysis type: non-traumatic Qualified Code(s): M62.82 - Rhabdomyolysis Code(s): M62.82 - Rhabdomyolysis Status: Acute Assessment and Plan: Patient with rhabdomyolysis on admission felt related to immobility and possibly unrecognized seizures at home. Total CK was 6500 but has trended down to 501 now. Crestor stopped IV fluids stopped monitor improved (5) Ulcer of right foot due to type 2 diabetes mellitus: Code(s): E11.621 - Type 2 diabetes mellitus with foot ulcer; L97.519 - Non-pressure chronic ulcer of other part of right foot with unspecified severity Status: Acute Assessment and Plan: Foot x-ray was negative for any evidence of osteomyelitis. The wound does not appear infected. Blood cultures are no growth to date. Continue local wound dressing as per wound care recommendations Plan Venous doppler: Small amount of thrombus along side a peripheral IV in the right basilic vein at the forearm. Usually self limiting- will monitor for now- pt will be on lovenox while in the hosptial- once discharge- will need a follow up doppler ultrasound to observe resolution of small superficial thrombus. DVT prophylaxis -Lovenox; check RUE doppler Code Status - Full Code Discharge - discharge when accepted at facility. Time Spent With Patient Time with patient: Greater than 35 minutes Subjective Date/time seen: 08/26/24 15:17 Interval history: pt is seen and examined. On Keppra 1000 mg bid, pregabalin. no acute events overnight. waiting for placement. pain free, still some coughing. RN reported an episode of coughing spell that lasted 10-15 seconds witnessed per friend. upon assessment- pt was alert,oriented , VS stable. Review of Systems Review of Systems: All systems reviewed & are unremarkable except as noted in HPI and below (HPI) ROS unobtainable: Yes unobtainable due to mental status ( lethargy/obtundation) Constitutional: Constitutional: Denies chills Eyes: Eyes: Denies blurry vision Cardiovascular: Cardiovascular: Denies chest pain Respiratory: Respiratory: Reports cough Gastrointestinal: Gastrointestinal: Denies abdominal pain Exam Narrative: Gen - alert, oriented, pleasant Chest -distant clear breath sounds. CV - RRR S1/S2. Telemetry showing no significant dysrhythmias Abd - Soft, obese, NT Ext -trace pedal edema. 1+ right UE edema Neuro - Alert and appropriate Nonfocal exam. Psych - Nml mood and affect Skin - Warm and dry. right distal plantar with round ulcer. Left elbow dressing clean, dry and intact Const: General: comfortable, no acute distress, well developed, alert, awake, ill appearing chronically, lethargic, patient obtunded and obese Nutritional Appearance: obese Orientation/consciousness: patient obtunded and lethargic HENMT: Head: normal to inspection, normocephalic and atraumatic Ears: hearing grossly normal bilaterally Face/Nose/Sinus: normal facial exam Face and sinus: normal facial exam Eyes: General: appearance normal, both eyes and all related structures Pupils: Equal, round and reactive pupils present EOM: EOMs intact bilaterally Neck: Neck: full ROM, no lymphadenopathy and no JVD Thyroid: thyroid normal Lymphatic: no lymphadenopathy noted Resp: Effort & Inspection: normal respiratory effort and able to speak in co mplete sentences Auscultation: clear to auscultation bilaterally Cardio: Jugular venous distension: no JVD Rate: regular rate Rhythm: regular rhythm Heart sounds: S1 normal heart sound present and S2 normal heart sound present GI: Inspection: Pannus present and obesity : General: Yes deferred Skin: Rashes: no rashes Wounds: no wounds Neuro: General: no focal motor deficits, CN's II-XI intact bilaterally, patient obtunded and Unable to assess gait Cranial nerves: Yes CN's II-XII intact bilaterally and Yes Equal, round and reactive pupils present Cognition (Neuro): abnormal cognition ( lethargy/obtunded) Gait exam (Neuro): Unable to assess gait Motor exam (neuro): 5/5 motor strength present throughout Extrem: General: normal to inspection, full ROM, no joint enlargement and no pedal edema Other: right foot ulcer Objective Data Vital Signs Vital Signs: Vital Signs - 24 hr 08/25/24 21:20 08/25/24 20:00 08/26/24 06:00 Temperature 97.9 F 97.1 F L Pulse Rate 65 65 66 Respiratory Rate 18 18 18 Blood Pressure 124/64 131/90 Pulse Oximetry 100 100 100 Oxygen Delivery Room Air 08/26/24 08:45 08/26/24 14:00 Temperature 97.9 F Pulse Rate 69 Respiratory Rate 18 Blood Pressure 117/59 L Pulse Oximetry 96 Oxygen Delivery Room Air Intake/Output Intake/Output: Intake & Output 08/23/24 08/24/24 08/25/24 08/26/24 23:59 23:59 23:59 23:59 Intake Total 0421 876 5076 777 Output Total 1800 2150 1050 Balance -130 -1230 1120 777 Meds/Results Medications: Active Medications Generic Name Dose Route Start Last Admin Trade Name Freq PRN Reason Stop Dose Admin Al Hydrox/Mg Hydrox/Simethicone 30 ml 08/19/24 02:38 Mag Hydrox/Al Hydrox/Simeth 30 Ml Udc PO Q6H PRN Indigestion Alprazolam 0.5 mg 08/22/24 07:39 08/25/24 21:31 Alprazolam (*Crx) 0.5 Mg Tablet PO 0.5 mg BID PRN Administration Anxiety Dextrose 12.5 gm 08/24/24 20:23 Dextrose 50% 25 Gm/50 Ml Syringe IV PUSH PRN PRN Hypoglycemia Protocol Duloxetine HCl 30 mg 08/22/24 09:00 08/26/24 08:49 Duloxetine Hcl 30 Mg Capsule.Dr PO 30 mg DAILY [facility]US Administration Enoxaparin Sodium 40 mg 08/20/24 09:00 08/26/24 08:49 Enoxaparin 40 Mg/0.4 Ml Syringe SUB-Q 40 mg DAILY [facility]US Administration Folic Acid 1 mg 08/22/24 09:00 08/26/24 08:49 Folic Acid 1 Mg Tablet PO 1 mg DAILY [facility] Administration Glucagon 1 mg 08/24/24 20:23 Glucagon For Inj 1 Mg Vial IM PRN PRN Hypoglycemia Protocol Glucose 15 gm 08/24/24 20:23 Glucose Oral Gel 15 Gm Of Glucse In 37.5 Gm Tube PO PRN PRN Hypoglycemia Protocol Dextrose 1,000 mls @ 100 mls/hr 08/24/24 20:23 Dextrose 5% 1,000 Ml IVPB PRN PRN Hypoglycemia Protocol Insulin Aspart 2 - 5 units 08/22/24 17:00 08/26/24 12:07 Insulin Aspart (*Bkc) 100 Units/Ml SUB-Q 2 units TIDWM MATHEUS Administration Protocol Insulin Aspart 1 - 3 units 08/24/24 21:00 08/25/24 21:30 Insulin Aspart (*Bkc) 100 Units/Ml SUB-Q 2 units HS [facility]US Administration Protocol Insulin Glargine 15 units 08/25/24 21:00 08/25/24 21:31 Insulin Glargine (*Bkc) 100 Units/Ml SUB-Q 15 units HS [facility] Administration Levetiracetam 1,000 mg 08/23/24 21:00 08/26/24 08:49 Levetiracetam 500 Mg Tablet PO 1,000 mg Q12HR [facility]US Administration Lorazepam 2 mg 08/19/24 12:35 Lorazepam Inj (*Crx) 2 Mg/Ml Vial IV PUSH ONCE PRN seizure Ondansetron HCl 4 mg 08/19/24 02:38 Ondansetron Inj 4 Mg/2 Ml Vial IV PUSH Q6H PRN Nausea And Vomiting Polyethylene Glycol 17 gm 08/19/24 02:38 Polyethylene Glycol 3350 17 Gm Powd.Pack PO QAM PRN Constipation Pregabalin 150 mg 08/22/24 09:00 08/26/24 12:07 Pregabalin (*Crx) 75 Mg Capsule PO 150 mg TID MATHEUS Administration Vitamin D 5,000 units 08/22/24 09:00 08/26/24 08:49 Cholecalciferol 5,000 Units Tablet PO 08/29/24 08:59 5,000 units DAILY MATHEUS Administration Vitamin D 1,000 units 08/29/24 09:00 Cholecalciferol 1,000 Units Tablet PO DAILY [facility] Radiology Results: ITS Impressions Chest X-Ray 08/18/24 19:03 IMPRESSION: 1. No acute cardiopulmonary disease. Head CT 08/18/24 21:30 IMPRESSION: 1. Normal aging brain. Foot X-Ray 08/18/24 22:42 IMPRESSION: 1. No evidence of osteomyelitis. Renal Ultrasound 08/19/24 14:06 IMPRESSION: Right kidney is not visualized. The left kidney is normal. Brain MRI 08/19/24 17:32 IMPRESSION: 1. Mild nonspecific cerebral white matter disease and pontine disease, which likely represents chronic small vessel ischemic disease. Carotid Doppler Study 08/21/24 17:16 IMPRESSION: 1. <50% stenosis in the right internal carotid artery. 2. <50% stenosis in the left internal carotid artery. Venous Doppler Study 08/22/24 16:51 IMPRESSION: 1. Small amount of thrombus along side a peripheral IV in the right basilic vein at the forearm. Labs Labs: Laboratory Results - last 24 hr 08/21/24 08/23/24 08/25/24 20:50 16:13 16:36 POC Capillary Glucose 276 H Methylmalonic Acid 215 Prolactin 7.1 08/25/24 08/26/24 08/26/24 20:45 07:58 11:39 POC Capillary Glucose 308 H 231 H 234 H Methylmalonic Acid Prolactin Quality VTE Prophylaxis VTE prophylaxis: pharmacologic ordered
[2024-08-26 16:44] LABS: Glucose Point of Care 258 mg/dl (65-105)
[2024-08-26 20:00] VITALS: PULSE 75; RESP 16; O2SAT 99
[2024-08-26] MEDS: ALPRAZolam (*CRX) 0.5 MG TABLET PO (20:19)
[2024-08-26] MEDS: INSULIN GLARGINE (*BKC) 100 UNITS/ML 15 UNITS SUB-Q (20:23)
[2024-08-26 20:29] VITALS: BP 137/69; PULSE 75; RESP 16; TEMP 36.5; O2SAT 99
[2024-08-26 20:43] LABS: Glucose Point of Care 276 mg/dl (65-105)
[2024-08-27 04:18] VITALS: BP 144/82; PULSE 62; RESP 16; TEMP 36.6; O2SAT 97
[2024-08-27 07:57] LABS: Glucose Point of Care 240 mg/dl (65-105)
[2024-08-27 08:00] VITALS: O2SAT 97
[2024-08-27] MEDS: levETIRAcetam 500 MG TABLET 1000 MG PO ×2 (08:09→21:22)
[2024-08-27] MEDS: CHOLECALCIFEROL 5,000 UNITS TABLET 5000 UNITS PO (08:09)
[2024-08-27] MEDS: DULoxetine HCL 30 MG CAPSULE.DR PO (08:09)
[2024-08-27] MEDS: ENOXAPARIN 40 MG/0.4 ML SYRINGE SUB-Q (08:09)
[2024-08-27] MEDS: FOLIC ACID 1 MG TABLET PO (08:09)
[2024-08-27] MEDS: PREGABALIN (*CRX) 75 MG CAPSULE 150 MG PO ×3 (08:10→16:47)
[2024-08-27] MEDS: INSULIN ASPART (*BKC) 100 UNITS/ML SUB-Q ×4 (08:13→21:23)
--- NOTE | 2024-08-27 08:39 | PCNWS ---
Weekly nutritional screen. Patient is tolerating current diabetic diet with adequate intake 100% all meals. No weight loss reported. No nutritional recommendations at this time.
[2024-08-27 11:31] LABS: Glucose Point of Care 283 mg/dl (65-105)
--- NOTE | 2024-08-27 11:54 | P.PNIM_ITS ---
Progress Note: A&P Assessment and Plan (1) Seizure-like activity: Code(s): R56.9 - Unspecified convulsions Status: Acute Assessment and Plan: - Possibly metabolic vs other. - Rhabdomyolysis upon admission and some metabolic problems have cleared, with his mental status also appears back to normal. - Vitamin-D very low under 12.8 on admission and currently getting vitamin-D 500 units a day. carotid Doppler study was performed did not show any significant abnormalities. - MRI brain negative for acute. - Seen by Neurologist. - Patient was on 750 mg Keppra BID, increased to 1000mg BID per neurologist. - Continue Pregabalin 50 mg QD. - Encouraged to lose weight and exercise regularly. - LDL cholesterol was 33. - EEG and MRI reviewed per neurologist and these did not show any acute or abnormal significant findings. White matter changes was noted MRI of the brain along with some changes in the brain, chronic per neurologist. Head CT 08/18/24 21:30 IMPRESSION: 1. Normal aging brain. Brain MRI 08/19/24 17:32 IMPRESSION: 1. Mild nonspecific cerebral white matter disease and pontine disease, which likely represents chronic small vessel ischemic disease. (2) Diabetes: Code(s): E11.9 - Type 2 diabetes mellitus without complications Status: Acute Assessment and Plan: - Blood glucose levels trending high. - Will continue to adjust insulin for optimal control. (3) SEBLE (acute kidney injury): Code(s): N17.9 - Acute kidney failure, unspecified Status: Acute Assessment and Plan: - Possibly pre-renal secondary to poor fluid intake vs diabetic/hypertensive nephropathy. - Appears resolved. - Renal panel currently wnl. (4) Rhabdomyolysis: Qualifiers: Rhabdomyolysis type: non-traumatic Qualified Code(s): M62.82 - R habdomyolysis Code(s): M62.82 - Rhabdomyolysis Status: Acute Assessment and Plan: - Appears resolved vs trending towards resolution. (5) Ulcer of right foot due to type 2 diabetes mellitus: Code(s): E11.621 - Type 2 diabetes mellitus with foot ulcer; L97.519 - Non-pressure chronic ulcer of other part of right foot with unspecified severity Status: Acute Assessment and Plan: - Right Plantar wound appears non-infected. - Continue wound care per nursing staff. Plan Continue PT/OT pending SNF transfer. Time Spent With Patient Time with patient: 15 - 25 minutes Subjective Date/time seen: 08/27/24 11:54 Patient calm on bedrest and states feeling ok. States still not strong enough to go home alone and has been working with PT, awaiting SNF/vs Rehab placement. Interval history: Patient calm on bedrest and looks to be in no acute distress. Review of Systems Review of Systems: All systems reviewed & are unremarkable except as noted in HPI and below Exam Narrative: General: Well appearing, no acute distress. HEENT: Atraumatic, PERRL, EOM, anicteric, NECK: Supple. Lungs: Clear bilaterally. Heart: RRR, no murmurs. Abdomen: Soft, obese, non-tender, +ve bowel sounds X4 quadrants. Extremities: No edema, 2+ve pedal and radial pulses, Skin: fungal appearing infection to perineal region. Right plantar diabetic wound appears non-infected. Neuro: Well oriented, no focal deficits noted. Psych: Pleasant and co-operative. Objective Data Vital Signs Vital Signs: Vital Signs - 24 hr 08/26/24 14:00 08/26/24 20:29 08/26/24 20:00 Temperature 97.9 F 97.7 F Pulse Rate 69 75 75 Respiratory Rate 18 16 16 Blood Pressure 117/59 L 137/69 Pulse Oximetry 96 99 99 Oxygen Delivery Room Air 08/27/24 04:18 08/27/24 08:00 Temperature 97.8 F Pulse Rate 62 Respiratory Rate 16 Blood Pressure 144/82 H Pulse Oximetry 97 97 Oxygen Delivery Room Air Intake/Output Intake/Output: Intake & Output 08/24/24 08/25/24 08/26/24 08/27/24 23:59 23:59 23:59 23:59 Intake Total 920 2170 1557 637 Output Total 2150 1050 300 500 Balance -1230 1120 1257 137 Meds/Results Medications: Active Medications Generic Name Dose Route Start Last Admin Trade Name Freq PRN Reason Stop Dose Admin Al Hydrox/Mg Hydrox/Simethicone 30 ml 08/19/24 02:38 Mag Hydrox/Al Hydrox/Simeth 30 Ml Udc PO Q6H PRN Indigestion Alprazolam 0.5 mg 08/22/24 07:39 08/26/24 20:19 Alprazolam (*Crx) 0.5 Mg Tablet PO 0.5 mg BID PRN Administration Anxiety Dextrose 12.5 gm 08/24/24 20:23 Dextrose 50% 25 Gm/50 Ml Syringe IV PUSH PRN PRN Hypoglycemia Protocol Duloxetine HCl 30 mg 08/22/24 09:00 08/27/24 08:09 Duloxetine Hcl 30 Mg Capsule.Dr PO 30 mg DAILY MATHEUS Administration Enoxaparin Sodium 40 mg 08/20/24 09:00 08/27/24 08:09 Enoxaparin 40 Mg/0.4 Ml Syringe SUB-Q 40 mg DAILY MATHEUS Administration Folic Acid 1 mg 08/22/24 09:00 08/27/24 08:09 Folic Acid 1 Mg Tablet PO 1 mg DAILY MATHEUS Administration Glucagon 1 mg 08/24/24 20:23 Glucagon For Inj 1 Mg Vial IM PRN PRN Hypoglycemia Protocol Glucose 15 gm 08/24/24 20:23 Glucose Oral Gel 15 Gm Of Glucse In 37.5 Gm Tube PO PRN PRN Hypoglycemia Protocol Dextrose 1,000 mls @ 100 mls/hr 08/24/24 20:23 Dextrose 5% 1,000 Ml IVPB PRN PRN Hypoglycemia Protocol Insulin Aspart 2 - 5 units 08/22/24 17:00 08/27/24 11:44 Insulin Aspart (*Bkc) 100 Units/Ml SUB-Q 3 units TIDWM MATHEUS Administration Protocol Insulin Aspart 1 - 3 units 08/24/24 21:00 08/26/24 20:23 Insulin Aspart (*Bkc) 100 Units/Ml SUB-Q 2 units HS MATHEUS Administration Protocol Insulin Glargine 15 units 08/25/24 21:00 08/26/24 20:23 Insulin Glargine (*Bkc) 100 Units/Ml SUB-Q 15 units HS MATHEUS Administration Levetiracetam 1,000 mg 08/23/24 21:00 08/27/24 08:09 Levetiracetam 500 Mg Tablet PO 1,000 mg Q12HR MATHEUS Administration Lorazepam 2 mg 08/19/24 12:35 Lorazepam Inj (*Crx) 2 Mg/Ml Vial IV PUSH ONCE PRN seizure Ondansetron HCl 4 mg 08/19/24 02:38 Ondansetron Inj 4 Mg/2 Ml Vial IV PUSH Q6H PRN Nausea And Vomiting Polyethylene Glycol 17 gm 08/19/24 02:38 Polyethylene Glycol 3350 17 Gm Powd.Pack PO QAM PRN Constipation Pregabalin 150 mg 08/22/24 09:00 08/27/24 08:10 Pregabalin (*Crx) 75 Mg Capsule PO 150 mg TID MATHEUS Administration Vitamin D 5,000 units 08/22/24 09:00 08/27/24 08:09 Cholecalciferol 5,000 Units Tablet PO 08/29/24 08:59 5,000 units DAILY MATHEUS Administration Vitamin D 1,000 units 08/29/24 09:00 Cholecalciferol 1,000 Units Tablet PO DAILY [facility] Radiology Results: ITS Impressions Chest X-Ray 08/18/24 19:03 IMPRESSION: 1. No acute cardiopulmonary disease. Head CT 08/18/24 21:30 IMPRESSION: 1. Normal aging brain. Foot X-Ray 08/18/24 22:42 IMPRESSION: 1. No evidence of osteomyelitis. Renal Ultrasound 08/19/24 14:06 IMPRESSION: Right kidney is not visualized. The left kidney is normal. Brain MRI 08/19/24 17:32 IMPRESSION: 1. Mild nonspecific cerebral white matter disease and pontine disease, which likely represents chronic small vessel ischemic disease. Carotid Doppler Study 08/21/24 17:16 IMPRESSION: 1. <50% stenosis in the right internal carotid artery. 2. <50% stenosis in the left internal carotid artery. Venous Doppler Study 08/22/24 16:51 IMPRESSION: 1. Small amount of thrombus along side a peripheral IV in the right basilic vein at the forearm. Labs Labs: Laboratory Results - last 24 hr 08/26/24 08/26/24 08/27/24 16:39 20:22 07:45 POC Capillary Glucose 258 H 276 H 240 H 08/27/24 11:28 POC Capillary Glucose 283 H Quality VTE Prophylaxis VTE prophylaxis: mechanical ordered and pharmacologic ordered Hospitalist MIPS Advance Care Plan I have confirmed that the patient's Advanced Care Plan is present, code status is documented, or surrogate decision maker is listed in patient medical record.: Yes Medication Reconciliation I have utilized all available resources to obtain, update and review the patients current medications (includes all prescriptions, OTC, herbals, cannabis, and nutritional supplements).: Yes
[2024-08-27 14:00] VITALS: BP 132/62; PULSE 68; RESP 18; TEMP 36.3; O2SAT 98
[2024-08-27 16:41] LABS: Glucose Point of Care 312 mg/dl (65-105)
[2024-08-27 20:00] VITALS: PULSE 66; RESP 20; O2SAT 100
[2024-08-27 21:22] LABS: Glucose Point of Care 327 mg/dl (65-105)
[2024-08-27] MEDS: ALPRAZolam (*CRX) 0.5 MG TABLET PO (21:22)
[2024-08-27] MEDS: INSULIN GLARGINE (*BKC) 100 UNITS/ML 15 UNITS SUB-Q (21:23)
[2024-08-27 21:34] VITALS: BP 138/66; PULSE 66; RESP 20; TEMP 36.4; O2SAT 100
[2024-08-28 05:47] VITALS: BP 141/76; PULSE 60; RESP 18; TEMP 36.1; O2SAT 100
[2024-08-28 08:13] LABS: Glucose Point of Care 257 mg/dl (65-105)
[2024-08-28] MEDS: FOLIC ACID 1 MG TABLET PO (08:31)
[2024-08-28] MEDS: CHOLECALCIFEROL 5,000 UNITS TABLET 5000 UNITS PO (08:31)
[2024-08-28] MEDS: PREGABALIN (*CRX) 75 MG CAPSULE 150 MG PO ×3 (08:31→16:06)
[2024-08-28] MEDS: DULoxetine HCL 30 MG CAPSULE.DR PO (08:31)
[2024-08-28] MEDS: levETIRAcetam 500 MG TABLET 1000 MG PO ×2 (08:31→21:35)
[2024-08-28] MEDS: ENOXAPARIN 40 MG/0.4 ML SYRINGE SUB-Q (08:32)
[2024-08-28] MEDS: INSULIN ASPART (*BKC) 100 UNITS/ML SUB-Q ×4 (08:32→21:36)
--- NOTE | 2024-08-28 10:39 | PM.IMPN ---
Progress Note: A&P Assessment and Plan (1) Seizure-like activity: Code(s): R56.9 - Unspecified convulsions Status: Acute Assessment and Plan: - Possibly metabolic vs other. - Rhabdomyolysis upon admission and some metabolic problems have cleared. - Mental status appears back to normal. - Vitamin-D very low under 12.8 on admission and currently getting supplements, vitamin-D 500 units a day. - Carotid Doppler study was performed did not show any significant abnormalities. - MRI brain negative for acute. - Seen by Neurologist. - Patient previously on 750 mg Keppra BID, increased to 1000mg BID per neurologist. - Continue Pregabalin 50 mg QD. - Encouraged to lose weight and exercise regularly. - LDL cholesterol 33. - EEG and MRI reviewed per neurologist and these did not show any acute or abnormal significant findings. White matter changes was noted MRI of the brain along with some changes in the brain, chronic per neurologist. Head CT 08/18/24 21:30 IMPRESSION: 1. Normal aging brain. Brain MRI 08/19/24 17:32 IMPRESSION: 1. Mild nonspecific cerebral white matter disease and pontine disease, which likely represents chronic small vessel ischemic disease. (2) Diabetes: Code(s): E11.9 - Type 2 diabetes mellitus without complications Status: Acute Assessment and Plan: - Blood glucose levels trending high. - Will continue to adjust insulin for optimal control. (3) SEBLE (acute kidney injury): Code(s): N17.9 - Acute kidney failure, unspecified Status: Acute Assessment and Plan: - Possibly pre-renal secondary to poor fluid intake vs diabetic/hypertensive nephropathy. - Appears resolved. - Renal panel currently wnl. (4) Rhabdomyolysis: Qualifiers: Rhabdomyolysis type: non-traumatic Qualified Code(s): M62.82 - Rhabdomyolysis Code(s): M62.82 - Rhabdomyolysis Status: Acute Assessment and Plan: - Appears resolved vs trending towards resolution. (5) Ulcer of right foot due to type 2 diabetes mellitus: Code(s): E11.621 - Type 2 diabetes mellitus with foot ulcer; L97.519 - Non-pressure chronic ulcer of other part of right foot with unspecified severity Status: Acute Assessment and Plan: - Right Plantar wound appears non-infected. - Continue wound care per nursing staff. Plan Continue PT/OT pending SNF transfer. Time Spent With Patient Time with patient: 15 - 25 minutes Subjective Date/time seen: 08/28/24 10:39 Patient states he feels good, just awaiting transfer to Rehab. Family bedside providing companionship. Interval history: Patient calm on bedrest and looks to be in no acute distress. Review of Systems Review of Systems: All systems reviewed & are unremarkable except as noted in HPI and below Exam Narrative: General: Well appearing, no acute distress. HEENT: Atraumatic, PERRL, EOM, anicteric, NECK: Supple. Lungs: Clear bilaterally. Heart: RRR, no murmurs. Abdomen: Soft, obese, non-tender, +ve bowel sounds X4 quadrants. Extremities: No edema, 2+ve pedal and radial pulses, Skin: fungal appearing rash to perineal region. Right plantar diabetic wound appears non-infected. Neuro: Well oriented, no focal deficits noted. Psych: Pleasant and co-operative. Objective Data Vital Signs Vital Signs: Vital Signs - 24 hr 08/27/24 14:00 08/27/24 21:34 08/27/24 20:00 Temperature 97.4 F L 97.6 F Pulse Rate 68 66 66 Respiratory Rate 18 20 20 Blood Pressure 132/62 138/66 Pulse Oximetry 98 100 100 Oxygen Delivery Room Air 08/28/24 05:47 Temperature 97 F L Pulse Rate 60 Respiratory Rate 18 Blood Pressure 141/76 H Pulse Oximetry 100 Oxygen Delivery Intake/Output Intake/Output: Intake & Output 08/25/24 08/26/24 08/27/24 08/28/24 23:59 23:59 23:59 23:59 Intake Total 2170 1557 1237 440 Output Total 1482 292 6359 250 Balance 1120 1257 -263 190 Meds/Results Medications: Active Medications Generic Name Dose Route Start Last Admin Trade Name Freq PRN Reason Stop Dose Admin Al Hydrox/Mg Hydrox/Simethicone 30 ml 08/19/24 02:38 Mag Hydrox/Al Hydrox/Simeth 30 Ml Udc PO Q6H PRN Indigestion Alprazolam 0.5 mg 08/22/24 07:39 08/27/24 21:22 Alprazolam (*Crx) 0.5 Mg Tablet PO 0.5 mg BID PRN Administration Anxiety Dextrose 12.5 gm 08/24/24 20:23 Dextrose 50% 25 Gm/50 Ml Syringe IV PUSH PRN PRN Hypoglycemia Protocol Duloxetine HCl 30 mg 08/22/24 09:00 08/28/24 08:31 Duloxetine Hcl 30 Mg Capsule.Dr PO 30 mg DAILY MATHEUS Administration Enoxaparin Sodium 40 mg 08/20/24 09:00 08/28/24 08:32 Enoxaparin 40 Mg/0.4 Ml Syringe SUB-Q 40 mg DAILY MATHEUS Administration Folic Acid 1 mg 08/22/24 09:00 08/28/24 08:31 Folic Acid 1 Mg Tablet PO 1 mg DAILY MATHEUS Administration Glucagon 1 mg 08/24/24 20:23 Glucagon For Inj 1 Mg Vial IM PRN PRN Hypoglycemia Protocol Glucose 15 gm 08/24/24 20:23 Glucose Oral Gel 15 Gm Of Glucse In 37.5 Gm Tube PO PRN PRN Hypoglycemia Protocol Dextrose 1,000 mls @ 100 mls/hr 08/24/24 20:23 Dextrose 5% 1,000 Ml IVPB PRN PRN Hypoglycemia Protocol Insulin Aspart 2 - 5 units 08/22/24 17:00 08/28/24 08:32 Insulin Aspart (*Bkc) 100 Units/Ml SUB-Q 3 units TIDWM MATHEUS Administration Protocol Insulin Aspart 1 - 3 units 08/24/24 21:00 08/27/24 21:23 Insulin Aspart (*Bkc) 100 Units/Ml SUB-Q 2 units HS MATHEUS Administration Protocol Insulin Glargine 15 units 08/25/24 21:00 08/27/24 21:23 Insulin Glargine (*Bkc) 100 Units/Ml SUB-Q 15 units HS MATHEUS Administration Levetiracetam 1,000 mg 08/23/24 21:00 08/28/24 08:31 Levetiracetam 500 Mg Tablet PO 1,000 mg Q12HR MATHEUS Administration Lorazepam 2 mg 08/19/24 12:35 Lorazepam Inj (*Crx) 2 Mg/Ml Vial IV PUSH ONCE PRN seizure Ondansetron HCl 4 mg 08/19/24 02:38 Ondansetron Inj 4 Mg/2 Ml Vial IV PUSH Q6H PRN Nausea And Vomiting Polyethylene Glycol 17 gm 08/19/24 02:38 Polyethylene Glycol 3350 17 Gm Powd.Pack PO QAM PRN Constipation Pregabalin 150 mg 08/22/24 09:00 08/28/24 08:31 Pregabalin (*Crx) 75 Mg Capsule PO 150 mg TID MATHEUS Administration Vitamin D 5,000 units 08/22/24 09:00 08/28/24 08:31 Cholecalciferol 5,000 Units Tablet PO 08/29/24 08:59 5,000 units DAILY MATHEUS Administration Vitamin D 1,000 units 08/29/24 09:00 Cholecalciferol 1,000 Units Tablet PO DAILY [facility] Radiology Results: ITS Impressions Chest X-Ray 08/18/24 19:03 IMPRESSION: 1. No acute cardiopulmonary disease. Head CT 08/18/24 21:30 IMPRESSION: 1. Normal aging brain. Foot X-Ray 08/18/24 22:42 IMPRESSION: 1. No evidence of osteomyelitis. Renal Ultrasound 08/19/24 14:06 IMPRESSION: Right kidney is not visualized. The left kidney is normal. Brain MRI 08/19/24 17:32 IMPRESSION: 1. Mild nonspecific cerebral white matter disease and pontine disease, which likely represents chronic small vessel ischemic disease. Carotid Doppler Study 08/21/24 17:16 IMPRESSION: 1. <50% stenosis in the right internal carotid artery. 2. <50% stenosis in the left internal carotid artery. Venous Doppler Study 08/22/24 16:51 IMPRESSION: 1. Small amount of thrombus along side a peripheral IV in the right basilic vein at the forearm. Labs Labs: Laboratory Results - last 24 hr 08/27/24 08/27/24 08/27/24 11:28 16:37 20:50 POC Capillary Glucose 283 H 312 H 327 H 08/28/24 07:58 POC Capillary Glucose 257 H Quality VTE Prophylaxis VTE prophylaxis: mechanical ordered and pharmacologic ordered Hospitalist [facility] Advance Care Plan I have confirmed that the patient's Advanced Care Plan is present, code status is documented, or surrogate decision maker is listed in patient medical record.: Yes Medication Reconciliation I have utilized all available resources to obtain, update and review the patients current medications (includes all prescriptions, OTC, herbals, cannabis, and nutritional supplements).: Yes
[2024-08-28 12:00] LABS: Glucose Point of Care 300 mg/dl (65-105)
[2024-08-28 14:00] VITALS: BP 119/57; PULSE 73; RESP 18; TEMP 36.2; O2SAT 99
[2024-08-28 17:01] LABS: Glucose Point of Care 332 mg/dl (65-105)
[2024-08-28 19:44] VITALS: BP 122/62; PULSE 66; RESP 16; TEMP 36.7; O2SAT 98
[2024-08-28 20:58] LABS: Glucose Point of Care 294 mg/dl (65-105)
[2024-08-28] MEDS: INSULIN GLARGINE (*BKC) 100 UNITS/ML 25 UNITS SUB-Q (21:34)
[2024-08-28] MEDS: ALPRAZolam (*CRX) 0.5 MG TABLET PO (21:37)
[2024-08-28 22:30] VITALS: BP 115/67; PULSE 64; RESP 18; TEMP 36.7; O2SAT 100
[2024-08-29 06:00] VITALS: PULSE 65; RESP 18; O2SAT 97
[2024-08-29 08:04] LABS: Glucose Point of Care 274 mg/dl (65-105)
--- NOTE | 2024-08-29 08:40 | P.PNIM_ITS ---
Progress Note: A&P Assessment and Plan (1) Seizure-like activity: Code(s): R56.9 - Unspecified convulsions Status: Acute Assessment and Plan: - No further episodes inpatient. - Possibly metabolic vs other. - Rhabdomyolysis on admission and other metabolic disturbances resolved. - Mental status currently back to normal. - Vitamin-D very low under 12.8 on admission and currently getting supplements, vitamin-D 500 units a day. - Carotid Doppler study was performed did not show any significant abnormalities. - MRI brain negative for acute. - Seen by Neurologist. - Patient previously on 750 mg Keppra BID, increased to 1000mg BID per neurologist. - Continue Pregabalin 50 mg QD. - Encouraged to lose weight and exercise regularly. - LDL cholesterol 33. - EEG and MRI reviewed per neurologist and no acute or abnormal significant findings noted. White matter changes was noted MRI of the brain along with some changes in the brain, chronic per neurologist. Head CT 08/18/24 21:30 IMPRESSION: 1. Normal aging brain. Brain MRI 08/19/24 17:32 IMPRESSION: 1. Mild nonspecific cerebral white matter disease and pontine disease, which likely represents chronic small vessel ischemic disease. (2) Diabetes: Code(s): E11.9 - Type 2 diabetes mellitus without complications Status: Acute Assessment and Plan: - Blood glucose levels trending high. - Lantus dose slightly increased and SSI changed from low to medium. - Will continue to adjust insulin for optimal control. (3) SEBLE (acute kidney injury): Code(s): N17.9 - Acute kidney failure, unspecified Status: Acute Assessment and Plan: - Possibly pre-renal secondary to poor fluid intake vs diabetic/hypertensive nephropathy. - Appears resolved. - Renal panel currently wnl. (4) Rhabdomyolysis: Qualifiers: Rhabdomyolysis type: non-traumatic Qualified Code(s): M62.82 - Rhabdomyolysis Code(s): M62.82 - Rhabdomyolysis Status: Acute Assessment and Plan: - Appears resolved vs trending towards resolution. (5) Ulcer of right foot due to type 2 diabetes mellitus: Code(s): E11.621 - Type 2 diabetes mellitus with foot ulcer; L97.519 - Non-pressure chronic ulcer of other part of right foot with unspecified severity Status: Acute Assessment and Plan: - Right Plantar wound appears non-infected. - Continue wound care per nursing staff. Plan Continue PT/OT pending SNF transfer. Time Spent With Patient Time with patient: 15 - 25 minutes Subjective Date/time seen: 08/29/24 08:40 Patient states she feels alright, just awaiting placement. Interval history: Patient calm on bedrest and looks to be in no acute distress. Review of Systems Review of Systems: All systems reviewed & are unremarkable except as noted in HPI and below Exam Narrative: General: Well appearing, no acute distress. HEENT: Atraumatic, PERRL, EOM, anicteric, NECK: Supple. Lungs: Clear bilaterally. Heart: RRR, no murmurs. Abdomen: Soft, obese, non-tender, +ve bowel sounds X4 quadrants. Extremities: No edema, 2+ve pedal and radial pulses, Skin: fungal appearing rash to perineal region. Right plantar diabetic wound appears non-infected. Neuro: Well oriented, no focal deficits noted. Psych: Pleasant and co-operative. Objective Data Vital Signs Vital Signs: Vital Signs - 24 hr 08/28/24 14:00 08/28/24 19:44 08/28/24 22:30 Temperature 97.2 F L 98.1 F 98.1 F Pulse Rate 73 66 64 Respiratory Rate 18 16 18 Blood Pressure 119/57 L 122/62 115/67 Pulse Oximetry 99 98 100 08/29/24 06:00 Temperature Pulse Rate 65 Respiratory Rate 18 Blood Pressure Pulse Oximetry 97 Intake/Output Intake/Output: Intake & Output 08/26/24 08/27/24 08/28/24 08/29/24 23:59 23:59 23:59 23:59 Intake Total 1557 1237 920 0 Output Total 300 1500 1100 300 Balance 1257 -263 -180 -300 Meds/Results Medications: Active Medications Generic Name Dose Route Start Last Admin Trade Name Freq PRN Reason Stop Dose Admin Al Hydrox/Mg Hydrox/Simethicone 30 ml 08/19/24 02:38 Mag Hydrox/Al Hydrox/Simeth 30 Ml Udc PO Q6H PRN Indigestion Alprazolam 0.5 mg 08/22/24 07:39 08/28/24 21:37 Alprazolam (*Crx) 0.5 Mg Tablet PO 0.5 mg BID PRN Administration Anxiety Dextrose 12.5 gm 08/24/24 20:23 Dextrose 50% 25 Gm/50 Ml Syringe IV PUSH PRN PRN Hypoglycemia Protocol Duloxetine HCl 30 mg 08/22/24 09:00 08/28/24 08:31 Duloxetine Hcl 30 Mg Capsule.Dr PO 30 mg DAILY MATHEUS Administration Enoxaparin Sodium 40 mg 08/20/24 09:00 08/28/24 08:32 Enoxaparin 40 Mg/0.4 Ml Syringe SUB-Q 40 mg DAILY MATHEUS Administration Folic Acid 1 mg 08/22/24 09:00 08/28/24 08:31 Folic Acid 1 Mg Tablet PO 1 mg DAILY MATHEUS Administration Glucagon 1 mg 08/24/24 20:23 Glucagon For Inj 1 Mg Vial IM PRN PRN Hypoglycemia Protocol Glucose 15 gm 08/24/24 20:23 Glucose Oral Gel 15 Gm Of Glucse In 37.5 Gm Tube PO PRN PRN Hypoglycemia Protocol Dextrose 1,000 mls @ 100 mls/hr 08/24/24 20:23 Dextrose 5% 1,000 Ml IVPB PRN PRN Hypoglycemia Protocol Insulin Aspart 1 - 3 units 08/24/24 21:00 08/28/24 21:36 Insulin Aspart (*Bkc) 100 Units/Ml SUB-Q 2 units HS MATHEUS Administration Protocol Insulin Aspart 3 - 6 units 08/28/24 12:00 08/28/24 17:07 Insulin Aspart (*Bkc) 100 Units/Ml SUB-Q 5 units TIDWM MATHEUS Administration Protocol Insulin Glargine 25 units 08/28/24 21:00 08/28/24 21:34 Insulin Glargine (*Bkc) 100 Units/Ml SUB-Q 25 units HS MATHEUS Administration Levetiracetam 1,000 mg 08/23/24 21:00 08/28/24 21:35 Levetiracetam 500 Mg Tablet PO 1,000 mg Q12HR MATHEUS Administration Lorazepam 2 mg 08/19/24 12:35 Lorazepam Inj (*Crx) 2 Mg/Ml Vial IV PUSH ONCE PRN seizure Ondansetron HCl 4 mg 08/19/24 02:38 Ondansetron Inj 4 Mg/2 Ml Vial IV PUSH Q6H PRN Nausea And Vomiting Polyethylene Glycol 17 gm 08/19/24 02:38 Polyethylene Glycol 3350 17 Gm Powd.Pack PO QAM PRN Constipation Pregabalin 150 mg 08/22/24 09:00 08/28/24 16:06 Pregabalin (*Crx) 75 Mg Capsule PO 150 mg TID MATHEUS Administration Vitamin D 5,000 units 08/22/24 09:00 08/28/24 08:31 Cholecalciferol 5,000 Units Tablet PO 08/29/24 08:59 5,000 units DAILY MATHEUS Administration Vitamin D 1,000 units 08/29/24 09:00 Cholecalciferol 1,000 Units Tablet PO DAILY [facility] Radiology Results: ITS Impressions Chest X-Ray 08/18/24 19:03 IMPRESSION: 1. No acute cardiopulmonary disease. Head CT 08/18/24 21:30 IMPRESSION: 1. Normal aging brain. Foot X-Ray 08/18/24 22:42 IMPRESSION: 1. No evidence of osteomyelitis. Renal Ultrasound 08/19/24 14:06 IMPRESSION: Right kidney is not visualized. The left kidney is normal. Brain MRI 08/19/24 17:32 IMPRESSION: 1. Mild nonspecific cerebral white matter disease and pontine disease, which likely represents chronic small vessel ischemic disease. Carotid Doppler Study 08/21/24 17:16 IMPRESSION: 1. <50% stenosis in the right internal carotid artery. 2. <50% stenosis in the left internal carotid artery. Venous Doppler Study 08/22/24 16:51 IMPRESSION: 1. Small amount of thrombus along side a peripheral IV in the right basilic vein at the forearm. Labs Labs: Laboratory Results - last 24 hr 08/28/24 08/28/24 08/28/24 11:52 16:56 19:46 POC Capillary Glucose 300 H 332 H 294 H 08/29/24 08:01 POC Capillary Glucose 274 H Quality VTE Prophylaxis VTE prophylaxis: mechanical ordered and pharmacologic ordered Hospitalist MIPS Advance Care Plan I have confirmed that the patient's Advanced Care Plan is present, code status is documented, or surrogate decision maker is listed in patient medical record.: Yes Medication Reconciliation I have utilized all available resources to obtain, update and review the patients current medications (includes all prescriptions, OTC, herbals, cannabis, and nutritional supplements).: Yes
[2024-08-29] MEDS: INSULIN ASPART (*BKC) 100 UNITS/ML SUB-Q ×4 (09:10→21:21)
[2024-08-29] MEDS: ENOXAPARIN 40 MG/0.4 ML SYRINGE SUB-Q (09:11)
[2024-08-29] MEDS: levETIRAcetam 500 MG TABLET 1000 MG PO ×2 (09:12→21:22)
[2024-08-29] MEDS: PREGABALIN (*CRX) 75 MG CAPSULE 150 MG PO ×3 (09:12→17:00)
[2024-08-29] MEDS: DULoxetine HCL 30 MG CAPSULE.DR PO (09:12)
[2024-08-29] MEDS: CHOLECALCIFEROL 1,000 UNITS TABLET 1000 UNITS PO (09:12)
[2024-08-29] MEDS: FOLIC ACID 1 MG TABLET PO (09:12)
[2024-08-29 11:49] LABS: Glucose Point of Care 296 mg/dl (65-105)
[2024-08-29 13:39] VITALS: BP 129/71; PULSE 70; RESP 16; TEMP 36.5; O2SAT 99
[2024-08-29 17:02] LABS: Glucose Point of Care 307 mg/dl (65-105)
[2024-08-29 19:53] VITALS: BP 131/71; PULSE 69; RESP 18; TEMP 36.7; O2SAT 100
[2024-08-29 20:37] LABS: Glucose Point of Care 253 mg/dl (65-105)
[2024-08-29] MEDS: INSULIN GLARGINE (*BKC) 100 UNITS/ML 30 UNITS SUB-Q (21:19)
[2024-08-29] MEDS: ALPRAZolam (*CRX) 0.5 MG TABLET PO (21:25)
[2024-08-29 22:11] VITALS: BP 130/71; PULSE 65; RESP 18; TEMP 36.8; O2SAT 96
[2024-08-30 04:27] VITALS: BP 133/74; PULSE 62; RESP 16; TEMP 36.7; O2SAT 100
[2024-08-30 08:37] LABS: Glucose Point of Care 235 mg/dl (65-105)
[2024-08-30] MEDS: INSULIN ASPART (*BKC) 100 UNITS/ML SUB-Q ×4 (08:51→21:49)
[2024-08-30] MEDS: ENOXAPARIN 40 MG/0.4 ML SYRINGE SUB-Q (08:52)
[2024-08-30] MEDS: PREGABALIN (*CRX) 75 MG CAPSULE 150 MG PO ×3 (08:52→17:03)
[2024-08-30] MEDS: CHOLECALCIFEROL 1,000 UNITS TABLET 1000 UNITS PO (08:52)
[2024-08-30] MEDS: DULoxetine HCL 30 MG CAPSULE.DR PO (08:52)
[2024-08-30] MEDS: FOLIC ACID 1 MG TABLET PO (08:52)
[2024-08-30] MEDS: levETIRAcetam 500 MG TABLET 1000 MG PO ×2 (08:52→21:49)
--- NOTE | 2024-08-30 10:23 | PM.IMPN ---
Progress Note: A&P Assessment and Plan (1) Seizure-like activity: Code(s): R56.9 - Unspecified convulsions Status: Acute Assessment and Plan: - No further episodes inpatient. - Possibly metabolic vs other. - Rhabdomyolysis on admission and other metabolic disturbances resolved. - Mental status currently back to normal. - Vitamin-D very low under 12.8 on admission and currently getting supplements, vitamin-D 500 units a day. - Carotid Doppler study was performed did not show any significant abnormalities. - MRI brain negative for acute. - Seen by Neurologist. - Patient previously on 750 mg Keppra BID, increased to 1000mg BID per neurologist. - Continue Pregabalin 50 mg QD. - Encouraged to lose weight and exercise regularly. - LDL cholesterol 33. - EEG and MRI reviewed per neurologist and no acute or abnormal significant findings noted. White matter changes noted on MRI brain along with some changes in the brain, chronic per neurologist. Head CT 08/18/24 21:30 IMPRESSION: 1. Normal aging brain. Brain MRI 08/19/24 17:32 IMPRESSION: 1. Mild nonspecific cerebral white matter disease and pontine disease, which likely represents chronic small vessel ischemic disease. (2) Diabetes: Code(s): E11.9 - Type 2 diabetes mellitus without complications Status: Acute Assessment and Plan: - Blood glucose levels trending moderate high but improving. - Insulin adjusted. - Continue current Lantus dose and medium dose SSI. - Continue to adjust insulin for optimal control. (3) SEBLE (acute kidney injury): Code(s): N17.9 - Acute kidney failure, unspecified Status: Acute Assessment and Plan: - Possibly pre-renal secondary to poor fluid intake vs diabetic/hypertensive nephropathy. - Appears resolved. - Renal panel currently wnl. (4) Rhabdomyolysis: Qualifiers: Rhabdomyolysis type: non-traumatic Qualified Code(s): M62.82 - Rhabdomyolysis Code(s): M62.82 - Rhabdomyolysis Status: Acute Assessment and Plan: - Appears resolved vs trending towards resolution. (5) Ulcer of right foot due to type 2 diabetes mellitus: Code(s): E11.621 - Type 2 diabetes mellitus with foot ulcer; L97.519 - Non-pressure chronic ulcer of other part of right foot with unspecified severity Status: Acute Assessment and Plan: - Right Plantar wound appears non-infected. - Continue wound care per nursing staff. Plan Continue PT/OT pending SNF transfer. Time Spent With Patient Time with patient: 15 - 25 minutes Subjective Date/time seen: 08/30/24 10:23 Patient states he feels alright, just awaiting transfer to rehab. Interval history: Patient calm on bedrest and looks to be in no acute distress. Review of Systems Review of Systems: All systems reviewed & are unremarkable except as noted in HPI and below Exam Narrative: General: Well appearing, no acute distress. HEENT: Atraumatic, PERRL, EOM, anicteric, NECK: Supple. Lungs: Clear bilaterally. Heart: RRR, no murmurs. Abdomen: Soft, obese, non-tender, +ve bowel sounds X4 quadrants. Extremities: No edema, 2+ve pedal and radial pulses, Skin: fungal appearing rash to perineal region. Right plantar diabetic wound appears non-infected. Neuro: Well oriented, no focal deficits noted. Psych: Pleasant and co-operative. Objective Data Vital Signs Vital Signs: Vital Signs - 24 hr 08/29/24 13:39 08/29/24 19:53 08/29/24 22:11 Temperature 97.7 F 98.1 F 98.2 F Pulse Rate 70 69 65 Respiratory Rate 16 18 18 Blood Pressure 129/71 131/71 130/71 Pulse Oximetry 99 100 96 08/30/24 04:27 Temperature 98.0 F Pulse Rate 62 Respiratory Rate 16 Blood Pressure 133/74 Pulse Oximetry 100 Intake/Output Intake/Output: Intake & Output 08/27/24 08/28/24 08/29/24 08/30/24 23:59 23:59 23:59 23:59 Intake Total 1237 920 720 740 Output Total 1500 1100 750 Balance -263 -180 -30 740 Meds/Results Medications: Active Medications Generic Name Dose Route Start Last Admin Trade Name Freq PRN Reason Stop Dose Admin Al Hydrox/Mg Hydrox/Simethicone 30 ml 08/19/24 02:38 Mag Hydrox/Al Hydrox/Simeth 30 Ml Udc PO Q6H PRN Indigestion Alprazolam 0.5 mg 08/22/24 07:39 08/29/24 21:25 Alprazolam (*Crx) 0.5 Mg Tablet PO 0.5 mg BID PRN Administration Anxiety Dextrose 12.5 gm 08/24/24 20:23 Dextrose 50% 25 Gm/50 Ml Syringe IV PUSH PRN PRN Hypoglycemia Protocol Duloxetine HCl 30 mg 08/22/24 09:00 08/30/24 08:52 Duloxetine Hcl 30 Mg Capsule.Dr PO 30 mg DAILY MATHEUS Administration Enoxaparin Sodium 40 mg 08/20/24 09:00 08/30/24 08:52 Enoxaparin 40 Mg/0.4 Ml Syringe SUB-Q 40 mg DAILY MATHEUS Administration Folic Acid 1 mg 08/22/24 09:00 08/30/24 08:52 Folic Acid 1 Mg Tablet PO 1 mg DAILY MATHEUS Administration Glucagon 1 mg 08/24/24 20:23 Glucagon For Inj 1 Mg Vial IM PRN PRN Hypoglycemia Protocol Glucose 15 gm 08/24/24 20:23 Glucose Oral Gel 15 Gm Of Glucse In 37.5 Gm Tube PO PRN PRN Hypoglycemia Protocol Dextrose 1,000 mls @ 100 mls/hr 08/24/24 20:23 Dextrose 5% 1,000 Ml IVPB PRN PRN Hypoglycemia Protocol Insulin Aspart 1 - 3 units 08/24/24 21:00 08/29/24 21:21 Insulin Aspart (*Bkc) 100 Units/Ml SUB-Q 2 units HS MATHEUS Administration Protocol Insulin Aspart 3 - 6 units 08/28/24 12:00 08/30/24 08:51 Insulin Aspart (*Bkc) 100 Units/Ml SUB-Q 3 units TIDWM MATHEUS Administration Protocol Insulin Glargine 30 units 08/29/24 21:00 08/29/24 21:19 Insulin Glargine (*Bkc) 100 Units/Ml SUB-Q 30 units HS MATHEUS Administration Levetiracetam 1,000 mg 08/23/24 21:00 08/30/24 08:52 Levetiracetam 500 Mg Tablet PO 1,000 mg Q12HR MATHEUS Administration Ondansetron HCl 4 mg 08/19/24 02:38 Ondansetron Inj 4 Mg/2 Ml Vial IV PUSH Q6H PRN Nausea And Vomiting Polyethylene Glycol 17 gm 08/19/24 02:38 Polyethylene Glycol 3350 17 Gm Powd.Pack PO QAM PRN Constipation Pregabalin 150 mg 08/22/24 09:00 08/30/24 08:52 Pregabalin (*Crx) 75 Mg Capsule PO 150 mg TID MATHEUS Administration Vitamin D 1,000 units 08/29/24 09:00 08/30/24 08:52 Cholecalciferol 1,000 Units Tablet PO 1,000 units DAILY MATHEUS Administration Radiology Results: ITS Impressions Chest X-Ray 08/18/24 19:03 IMPRESSION: 1. No acute cardiopulmonary disease. Head CT 08/18/24 21:30 IMPRESSION: 1. Normal aging brain. Foot X-Ray 08/18/24 22:42 IMPRESSION: 1. No evidence of osteomyelitis. Renal Ultrasound 08/19/24 14:06 IMPRESSION: Right kidney is not visualized. The left kidney is normal. Brain MRI 08/19/24 17:32 IMPRESSION: 1. Mild nonspecific cerebral white matter disease and pontine disease, which likely represents chronic small vessel ischemic disease. Carotid Doppler Study 08/21/24 17:16 IMPRESSION: 1. <50% stenosis in the right internal carotid artery. 2. <50% stenosis in the left internal carotid artery. Venous Doppler Study 08/22/24 16:51 IMPRESSION: 1. Small amount of thrombus along side a peripheral IV in the right basilic vein at the forearm. Labs Labs: Laboratory Results - last 24 hr 08/29/24 08/29/24 08/29/24 11:44 16:51 20:00 POC Capillary Glucose 296 H 307 H 253 H 08/30/24 08:33 POC Capillary Glucose 235 H Quality VTE Prophylaxis VTE prophylaxis: mechanical ordered and pharmacologic ordered Hospitalist MIPS Advance Care Plan I have confirmed that the patient's Advanced Care Plan is present, code status is documented, or surrogate decision maker is listed in patient medical record.: Yes Medication Reconciliation I have utilized all available resources to obtain, update and review the patients current medications (includes all prescriptions, OTC, herbals, cannabis, and nutritional supplements).: Yes
[2024-08-30 12:08] LABS: Glucose Point of Care 311 mg/dl (65-105)
[2024-08-30 14:00] VITALS: BP 128/72; PULSE 72; RESP 16; TEMP 36.5; O2SAT 100
[2024-08-30 17:01] LABS: Glucose Point of Care 270 mg/dl (65-105)
[2024-08-30 21:18] LABS: Glucose Point of Care 267 mg/dl (65-105)
[2024-08-30] MEDS: INSULIN GLARGINE (*BKC) 100 UNITS/ML 30 UNITS SUB-Q (21:48)
[2024-08-30] MEDS: ALPRAZolam (*CRX) 0.5 MG TABLET PO (21:50)
[2024-08-30 22:00] VITALS: BP 125/68; PULSE 65; RESP 18; TEMP 36.5; O2SAT 98
[2024-08-31 05:55] VITALS: BP 133/67; PULSE 67; RESP 16; TEMP 36.4; O2SAT 99
[2024-08-31 08:03] LABS: Glucose Point of Care 241 mg/dl (65-105)
[2024-08-31] MEDS: INSULIN ASPART (*BKC) 100 UNITS/ML SUB-Q ×4 (08:40→20:17)
[2024-08-31] MEDS: FOLIC ACID 1 MG TABLET PO (08:42)
[2024-08-31] MEDS: PREGABALIN (*CRX) 75 MG CAPSULE 150 MG PO ×3 (08:43→16:29)
[2024-08-31] MEDS: DULoxetine HCL 30 MG CAPSULE.DR PO (08:43)
[2024-08-31] MEDS: CHOLECALCIFEROL 1,000 UNITS TABLET 1000 UNITS PO (08:43)
--- NOTE | 2024-08-31 09:04 | P.PNIM_ITS ---
Progress Note: A&P Assessment and Plan (1) Seizure-like activity: Code(s): R56.9 - Unspecified convulsions Status: Acute Assessment and Plan: - No further episodes inpatient. - Possibly metabolic vs other. - Rhabdomyolysis on admission and other metabolic disturbances resolved. - Mental status currently back to normal. - Vitamin-D very low under 12.8 on admission and currently getting supplements, vitamin-D 500 units a day. - Carotid Doppler study was performed did not show any significant abnormalities. - MRI brain negative for acute. - Seen by Neurologist and continued Keppra recommended. - Patient refusing to take Keppra as he doesn't believe he was having seiuzures. - Currently on Pregabalin 50 mg QD. - Encouraged to lose weight and exercise regularly. - LDL cholesterol 33. - EEG and MRI reviewed per neurologist and no acute or abnormal significant findings noted. White matter changes noted on MRI brain along with some changes in the brain, chronic per neurologist. Head CT 08/18/24 21:30 IMPRESSION: 1. Normal aging brain. Brain MRI 08/19/24 17:32 IMPRESSION: 1. Mild nonspecific cerebral white matter disease and pontine disease, which likely represents chronic small vessel ischemic disease. (2) Diabetes: Code(s): E11.9 - Type 2 diabetes mellitus without complications Status: Acute Assessment and Plan: - Blood glucose levels still elevated and we'll increase Lantus dose. - Insulin adjusted. - Continue medium dose SSI. - Continue to adjust insulin for optimal control. (3) SEBLE (acute kidney injury): Code(s): N17.9 - Acute kidney failure, unspecified Status: Acute Assessment and Plan: - Possibly pre-renal secondary to poor fluid intake vs diabetic/hypertensive nephropathy. - Appears resolved. - Renal panel currently wnl. (4) Rhabdomyolysis: Qualifiers: Rhabdomyolysis type: non-traumatic Qualified Code(s): M62.82 - Rhabdomyolysis Code(s): M62.82 - Rhabdomyolysis Status: Acute Assessment and Plan: - Possibly from prolonged period on the chair and possibly seizures. - Appears resolved. (5) Ulcer of right foot due to type 2 diabetes mellitus: Code(s): E11.621 - Type 2 diabetes mellitus with foot ulcer; L97.519 - Non-pressure chronic ulcer of other part of right foot with unspecified severity Status: Acute Assessment and Plan: - Right Plantar wound appears non-infected. - Continue wound care per nursing staff. Plan Continue PT/OT pending SNF transfer. Time Spent With Patient Time with patient: 15 - 25 minutes Subjective Date/time seen: 08/31/24 09:05 Patient states he's concerned about taking Keppra as he doesn't believe he was having seizures. Pt states will skip Keppra for now unless he gets another seizu re like activity then he would take it, but not now. Interval history: Patient calm sitting bedside, not in any acute distress. Review of Systems Review of Systems: All systems reviewed & are unremarkable except as noted in HPI and below Exam Narrative: General: Well appearing, no acute distress. HEENT: Atraumatic, PERRL, EOM, moist mucosa, anicteric, NECK: Supple. Lungs: Clear bilaterally. Heart: RRR, no murmurs. Abdomen: Soft, obese, non-tender, +ve bowel sounds X4 quadrants. Extremities: No edema, 2+ve pedal and radial pulses, Skin: fungal appearing rash to perineal region. Right plantar diabetic wound appears non-infected. Neuro: Well oriented, no focal deficits noted. Psych: Pleasant and co-operative. Objective Data Vital Signs Vital Signs: Vital Signs - 24 hr 08/30/24 14:00 08/30/24 22:00 08/30/24 20:00 Temperature 97.7 F 97.7 F Pulse Rate 72 65 Respiratory Rate 16 18 Blood Pressure 128/72 125/68 Pulse Oximetry 100 98 Oxygen Delivery Room Air 08/31/24 05:55 Temperature 97.6 F Pulse Rate 67 Respiratory Rate 16 Blood Pressure 133/67 Pulse Oximetry 99 Oxygen Delivery Intake/Output Intake/Output: Intake & Output 08/28/24 08/29/24 08/30/24 08/31/24 23:59 23:59 23:59 23:59 Intake Total 490 253 7470 590 Output Total 1100 750 200 Balance -180 -30 1202 390 Meds/Results Medications: Active Medications Generic Name Dose Route Start Last Admin Trade Name Freq PRN Reason Stop Dose Admin Al Hydrox/Mg Hydrox/Simethicone 30 ml 08/19/24 02:38 Mag Hydrox/Al Hydrox/Simeth 30 Ml Udc PO Q6H PRN Indigestion Alprazolam 0.5 mg 08/22/24 07:39 08/30/24 21:50 Alprazolam (*Crx) 0.5 Mg Tablet PO 0.5 mg BID PRN Administration Anxiety Dextrose 12.5 gm 08/24/24 20:23 Dextrose 50% 25 Gm/50 Ml Syringe IV PUSH PRN PRN Hypoglycemia Protocol Duloxetine HCl 30 mg 08/22/24 09:00 08/31/24 08:43 Duloxetine Hcl 30 Mg Capsule.Dr PO 30 mg DAILY MATHEUS Administration Enoxaparin Sodium 40 mg 08/20/24 09:00 08/30/24 08:52 Enoxaparin 40 Mg/0.4 Ml Syringe SUB-Q 40 mg DAILY MATHEUS Administration Folic Acid 1 mg 08/22/24 09:00 08/31/24 08:42 Folic Acid 1 Mg Tablet PO 1 mg DAILY MATHEUS Administration Glucagon 1 mg 08/24/24 20:23 Glucagon For Inj 1 Mg Vial IM PRN PRN Hypoglycemia Protocol Glucose 15 gm 08/24/24 20:23 Glucose Oral Gel 15 Gm Of Glucse In 37.5 Gm Tube PO PRN PRN Hypoglycemia Protocol Dextrose 1,000 mls @ 100 mls/hr 08/24/24 20:23 Dextrose 5% 1,000 Ml IVPB PRN PRN Hypoglycemia Protocol Insulin Aspart 1 - 3 units 08/24/24 21:00 08/30/24 21:49 Insulin Aspart (*Bkc) 100 Units/Ml SUB-Q 2 units HS MATHEUS Administration Protocol Insulin Aspart 3 - 6 units 08/28/24 12:00 08/31/24 08:40 Insulin Aspart (*Bkc) 100 Units/Ml SUB-Q 3 units TIDWM MATHEUS Administration Protocol Insulin Glargine 30 units 08/29/24 21:00 08/30/24 21:48 Insulin Glargine (*Bkc) 100 Units/Ml SUB-Q 30 units HS MATHEUS Administration Levetiracetam 1,000 mg 08/23/24 21:00 08/30/24 21:49 Levetiracetam 500 Mg Tablet PO 1,000 mg Q12HR MATHEUS Administration Miscellaneous Information 1 each 08/31/24 00:01 Alprazolam_ Needs To Be Renewed Or It Will Automatically Discontinue. XX 09/30/24 00:00 CLARIFY MATHEUS Ondansetron HCl 4 mg 08/19/24 02:38 Ondansetron Inj 4 Mg/2 Ml Vial IV PUSH Q6H PRN Nausea And Vomiting Polyethylene Glycol 17 gm 08/19/24 02:38 Polyethylene Glycol 3350 17 Gm Powd.Pack PO QAM PRN Constipation Pregabalin 150 mg 08/22/24 09:00 08/31/24 08:43 Pregabalin (*Crx) 75 Mg Capsule PO 150 mg TID MATHEUS Administration Vitamin D 1,000 units 08/29/24 09:00 08/31/24 08:43 Cholecalciferol 1,000 Units Tablet PO 1,000 units DAILY MATHEUS Administration Radiology Results: ITS Impressions Chest X-Ray 08/18/24 19:03 IMPRESSION: 1. No acute cardiopulmonary disease. Head CT 08/18/24 21:30 IMPRESSION: 1. Normal aging brain. Foot X-Ray 08/18/24 22:42 IMPRESSION: 1. No evidence of osteomyelitis. Renal Ultrasound 08/19/24 14:06 IMPRESSION: Right kidney is not visualized. The left kidney is normal. Brain MRI 08/19/24 17:32 IMPRESSION: 1. Mild nonspecific cerebral white matter disease and pontine disease, which likely represents chronic small vessel ischemic disease. Carotid Doppler Study 08/21/24 17:16 IMPRESSION: 1. <50% stenosis in the right internal carotid artery. 2. <50% stenosis in the left internal carotid artery. Venous Doppler Study 08/22/24 16:51 IMPRESSION: 1. Small amount of thrombus along side a peripheral IV in the right basilic vein at the forearm. Labs Labs: Laboratory Results - last 24 hr 08/30/24 08/30/24 08/30/24 11:58 16:51 20:49 POC Capillary Glucose 311 H 270 H 267 H 08/31/24 07:45 POC Capillary Glucose 241 H Quality VTE Prophylaxis VTE prophylaxis: mechanical ordered and pharmacologic ordered Hospitalist MIPS Advance Care Plan I have confirmed that the patient's Advanced Care Plan is present, code status is documented, or surrogate decision maker is listed in patient medical record.: Yes Medication Reconciliation I have utilized all available resources to obtain, update and review the patients current medications (includes all prescriptions, OTC, herbals, cannabi s, and nutritional supplements).: Yes
[2024-08-31] MEDS: ENOXAPARIN 40 MG/0.4 ML SYRINGE SUB-Q (09:16)
[2024-08-31 11:49] LABS: Glucose Point of Care 239 mg/dl (65-105)
[2024-08-31 13:59] VITALS: BP 125/69; PULSE 69; RESP 17; TEMP 36.4; O2SAT 100
[2024-08-31 17:17] LABS: Glucose Point of Care 259 mg/dl (65-105)
[2024-08-31] MEDS: INSULIN GLARGINE (*BKC) 100 UNITS/ML 30 UNITS SUB-Q (20:17)
[2024-08-31 20:20] VITALS: PULSE 73; RESP 18; O2SAT 99
[2024-08-31 21:04] LABS: Glucose Point of Care 289 mg/dl (65-105)
[2024-08-31 21:12] VITALS: BP 115/60; PULSE 73; RESP 18; TEMP 36.2; O2SAT 99
[2024-09-01 05:27] VITALS: BP 118/75; PULSE 71; RESP 18; TEMP 36.1; O2SAT 94
[2024-09-01 08:03] LABS: Glucose Point of Care 176 mg/dl (65-105)
[2024-09-01] MEDS: DULoxetine HCL 30 MG CAPSULE.DR PO (09:14)
[2024-09-01] MEDS: FOLIC ACID 1 MG TABLET PO (09:14)
[2024-09-01] MEDS: CHOLECALCIFEROL 1,000 UNITS TABLET 1000 UNITS PO (09:14)
[2024-09-01] MEDS: ENOXAPARIN 40 MG/0.4 ML SYRINGE SUB-Q (09:15)
--- NOTE | 2024-09-01 10:19 | PM.IMPN ---
Progress Note: A&P Assessment and Plan (1) Seizure-like activity: Code(s): R56.9 - Unspecified convulsions Status: Acute Assessment and Plan: - No further episodes noted inpatient. - Possibly metabolic vs other. - Rhabdomyolysis on admission and other metabolic disturbances resolved. - Mental status currently back to normal. - Vitamin-D very low under 12.8 on admission and currently getting supplements, vitamin-D 500 units a day. - Carotid Doppler study was performed did not show any significant abnormalities. - MRI brain negative for acute. - Seen by Neurologist and continued Keppra recommended. - Patient noow refusing to take Keppra as he doesn't believe he has seizures. - Currently on Pregabalin 50 mg QD. - Encouraged to lose weight and exercise regularly. - LDL cholesterol 33. - EEG and MRI reviewed per neurologist and no acute or abnormal significant findings noted. White matter changes noted on MRI brain along with some changes in the brain, chronic per neurologist. Head CT 08/18/24 21:30 IMPRESSION: 1. Normal aging brain. Brain MRI 08/19/24 17:32 IMPRESSION: 1. Mild nonspecific cerebral white matter disease and pontine disease, which likely represents chronic small vessel ischemic disease. (2) Diabetes: Code(s): E11.9 - Type 2 diabetes mellitus without complications Status: Acute Assessment and Plan: - Blood glucose levels improving. - Continue to adjust insulin as needed. - Continue medium dose SSI for now. (3) SEBLE (acute kidney injury): Code(s): N17.9 - Acute kidney failure, unspecified Status: Acute Assessment and Plan: - Possibly pre-renal secondary to poor fluid intake vs diabetic/hypertensive nephropathy. - Resolved. - Renal panel currently wnl. (4) Rhabdomyolysis: Qualifiers: Rhabdomyolysis type: non-traumatic Qualified Code(s): M62.82 - Rhabdomyolysis Code(s): M62.82 - Rhabdomyolysis Status: Acute Assessment and Plan: - Possibly from prolonged period on the chair and possibly seizures. - Resolved. (5) Ulcer of right foot due to type 2 diabetes mellitus: Code(s): E11.621 - Type 2 diabetes mellitus with foot ulcer; L97.519 - Non-pressure chronic ulcer of other part of right foot with unspecified severity Status: Acute Assessment and Plan: - Right Plantar wound appears non-infected. - Continue wound care per nursing staff. Plan Continue PT/OT pending SNF transfer. Time Spent With Patient Time with patient: 15 - 25 minutes Subjective Date/time seen: 09/01/24 10:19 Patient states he feels alright, just awaiting transfer to Rehab. States still doesn't want to take any anti-epileptic as she doesn't believe she has seizures. Interval history: Patient calm sitting on chair after PT session, appears to be in no acute distress. Review of Systems Review of Systems: All systems reviewed & are unremarkable except as noted in HPI and below Exam Narrative: General: Well appearing, no acute distress. HEENT: Atraumatic, PERRL, EOM, moist mucosa, anicteric, NECK: Supple. Lungs: Clear bilaterally. Heart: RRR, no murmurs. Abdomen: Soft, obese, non-tender, +ve bowel sounds X4 quadrants. Extremities: No edema, 2+ve pedal and radial pulses, Skin: fungal appearing rash to perineal region much improved. Right plantar diabetic wound appears non-infected and has clean, dry and intact dressing. Neuro: Well oriented, no focal deficits noted. Psych: Pleasant and co-operative. Objective Data Vital Signs Vital Signs: Vital Signs - 24 hr 08/31/24 13:59 08/31/24 20:20 08/31/24 21:12 Temperature 97.5 F L 97.2 F L Pulse Rate 69 73 73 Respiratory Rate 17 18 18 Blood Pressure 125/69 115/60 Pulse Oximetry 100 99 99 Oxygen Delivery Room Air 09/01/24 05:27 09/01/24 09:14 Temperature 97 F L Pulse Rate 71 Respiratory Rate 18 Blood Pressure 118/75 Pulse Oximetry 94 Oxygen Delivery Room Air Intake/Output Intake/Output: Intake & Output 08/29/24 08/30/24 08/31/24 09/01/24 23:59 23:59 23:59 23:59 Intake Total 720 1202 1584 590 Output Total 750 500 200 Balance -30 1202 1084 390 Meds/Results Medications: Active Medications Generic Name Dose Route Start Last Admin Trade Name Freq PRN Reason Stop Dose Admin Al Hydrox/Mg Hydrox/Simethicone 30 ml 08/19/24 02:38 Mag Hydrox/Al Hydrox/Simeth 30 Ml Udc PO Q6H PRN Indigestion Dextrose 12.5 gm 08/24/24 20:23 Dextrose 50% 25 Gm/50 Ml Syringe IV PUSH PRN PRN Hypoglycemia Protocol Duloxetine HCl 30 mg 08/22/24 09:00 09/01/24 09:14 Duloxetine Hcl 30 Mg Capsule.Dr PO 30 mg DAILY MATHEUS Administration Enoxaparin Sodium 40 mg 08/20/24 09:00 09/01/24 09:15 Enoxaparin 40 Mg/0.4 Ml Syringe SUB-Q 40 mg DAILY MATHEUS Administration Folic Acid 1 mg 08/22/24 09:00 09/01/24 09:14 Folic Acid 1 Mg Tablet PO 1 mg DAILY MATHEUS Administration Glucagon 1 mg 08/24/24 20:23 Glucagon For Inj 1 Mg Vial IM PRN PRN Hypoglycemia Protocol Glucose 15 gm 08/24/24 20:23 Glucose Oral Gel 15 Gm Of Glucse In 37.5 Gm Tube PO PRN PRN Hypoglycemia Protocol Dextrose 1,000 mls @ 100 mls/hr 08/24/24 20:23 Dextrose 5% 1,000 Ml IVPB PRN PRN Hypoglycemia Protocol Insulin Aspart 1 - 3 units 08/24/24 21:00 08/31/24 20:17 Insulin Aspart (*Bkc) 100 Units/Ml SUB-Q 2 units HS MATHEUS Administration Protocol Insulin Aspart 3 - 6 units 08/28/24 12:00 09/01/24 08:58 Insulin Aspart (*Bkc) 100 Units/Ml SUB-Q Not Given TIDWM PENDING SALE TO [facility] Protocol Insulin Glargine 30 units 08/29/24 21:00 08/31/24 20:17 Insulin Glargine (*Bkc) 100 Units/Ml SUB-Q 30 units HS MATHEUS Administration Levetiracetam 1,000 mg 08/23/24 21:00 09/01/24 09:19 Levetiracetam 500 Mg Tablet PO Not Given Q12HR PENDING SALE TO [facility] Miscellaneous Information 1 each 08/31/24 00:01 Alprazolam_ Needs To Be Renewed Or It Will Automatically Discontinue. XX 09/30/24 00:00 CLARIFY PENDING SALE TO [facility] Miscellaneous Information 1 each 08/31/24 00:01 Pregabalin_ Needs To Be Renewed Or It Will Automatically Discontinue. XX 09/30/24 00:00 CLARIFY PENDING SALE TO [facility] Ondansetron HCl 4 mg 08/19/24 02:38 Ondansetron Inj 4 Mg/2 Ml Vial IV PUSH Q6H PRN Nausea And Vomiting Polyethylene Glycol 17 gm 08/19/24 02:38 Polyethylene Glycol 3350 17 Gm Powd.Pack PO QAM PRN Constipation Vitamin D 1,000 units 08/29/24 09:00 09/01/24 09:14 Cholecalciferol 1,000 Units Tablet PO 1,000 units DAILY MATHEUS Administration Radiology Results: ITS Impressions Chest X-Ray 08/18/24 19:03 IMPRESSION: 1. No acute cardiopulmonary disease. Head CT 08/18/24 21:30 IMPRESSION: 1. Normal aging brain. Foot X-Ray 08/18/24 22:42 IMPRESSION: 1. No evidence of osteomyelitis. Renal Ultrasound 08/19/24 14:06 IMPRESSION: Right kidney is not visualized. The left kidney is normal. Brain MRI 08/19/24 17:32 IMPRESSION: 1. Mild nonspecific cerebral white matter disease and pontine disease, which likely represents chronic small vessel ischemic disease. Carotid Doppler Study 08/21/24 17:16 IMPRESSION: 1. <50% stenosis in the right internal carotid artery. 2. <50% stenosis in the left internal carotid artery. Venous Doppler Study 08/22/24 16:51 IMPRESSION: 1. Small amount of thrombus along side a peripheral IV in the right basilic vein at the forearm. Labs Labs: Laboratory Results - last 24 hr 08/31/24 08/31/24 08/31/24 11:36 17:03 20:07 POC Capillary Glucose 239 H 259 H 289 H 09/01/24 07:46 POC Capillary Glucose 176 H Quality VTE Prophylaxis VTE prophylaxis: mechanical ordered and pharmacologic ordered Hospitalist [facility] Advance Care Plan I have confirmed that the patient's Advanced Care Plan is present, code status is documented, or surrogate decision maker is listed in patient medical record.: Yes Medication Reconciliation I have utilized all available resources to obtain, update and review the patients current medications (includes all prescriptions, OTC, herbals, cannabis, and nutritional supplements).: Yes
[2024-09-01] MEDS: PREGABALIN (*CRX) 75 MG CAPSULE PO (10:40)
[2024-09-01 12:10] LABS: Glucose Point of Care 216 mg/dl (65-105)
[2024-09-01] MEDS: INSULIN ASPART (*BKC) 100 UNITS/ML SUB-Q ×2 (12:24→17:42)
[2024-09-01 14:00] VITALS: BP 144/67; PULSE 83; RESP 18; TEMP 35.6; O2SAT 100
--- NOTE | 2024-09-01 15:49 | PM.DS ---
DS: Admitting Diagnosis Discharge Date 09/01/24 Admitting Diagnosis Generalized Muscle Weakness. DS: Discharge Diagnosis Discharge Diagnosis (1) Seizure-like activity: Code(s): R56.9 - Unspecified convulsions Status: Acute Assessment and Plan: - No further episodes noted inpatient. - Possibly metabolic vs other. - Rhabdomyolysis on admission and other metabolic disturbances resolved. - Mental status currently back to normal. - Vitamin-D very low under 12.8 on admission and currently getting supplements, vitamin-D 500 units a day. - Carotid Doppler study was performed did not show any significant abnormalities. - MRI brain negative for acute. - Seen by Neurologist and continued Keppra recommended. - Patient noow refusing to take Keppra as he doesn't believe he has seizures. - Currently on Pregabalin 50 mg QD. - Encouraged to lose weight and exercise regularly. - LDL cholesterol 33. - EEG and MRI reviewed per neurologist and no acute or abnormal significant findings noted. White matter changes noted on MRI brain along with some changes in the brain, chronic per neurologist. Head CT 08/18/24 21:30 IMPRESSION: 1. Normal aging brain. Brain MRI 08/19/24 17:32 IMPRESSION: 1. Mild nonspecific cerebral white matter disease and pontine disease, which likely represents chronic small vessel ischemic disease. (2) Diabetes: Code(s): E11.9 - Type 2 diabetes mellitus without complications Status: Acute Assessment and Plan: - Blood glucose levels improved inpatient. - Lantus and SSI adjusted. (3) SEBLE (acute kidney injury): Code(s): N17.9 - Acute kidney failure, unspecified Status: Acute Assessment and Plan: - Possibly pre-renal secondary to poor fluid intake vs diabetic/hypertensive nephropathy. - Resolved prior to discharge. (4) Rhabdomyolysis: Qualifiers: Rhabdomyolysis type: non-traumatic Qualified Code(s): M62.82 - Rhabdomyolysis Code(s): M62.82 - Rhabdomyolysis Status: Acute Assessment and Plan: - Possibly from prolonged period on the chair and possibly seizures. - Resolved prior to discharge. (5) Ulcer of right foot due to type 2 diabetes mellitus: Code(s): E11.621 - Type 2 diabetes mellitus with foot ulcer; L97.519 - Non-pressure chronic ulcer of other part of right foot with unspecified severity Status: Acute Assessment and Plan: - Right Plantar wound appeared non-infected inpatient. - Wound care done per nursing staff. (6) Peripheral neuropathy: Code(s): G62.9 - Polyneuropathy, unspecified Status: Acute Plan Discharge to inpatient Rehab. DS: Summary Hospital Course Reason for hospitalization: Generalized Muscle Weakness. Hospital Course: Patient was brought to the emergency room via ambulance due to generalized weakness, unable to get up from his recliner and falling 2-3 days before his presentation, but refused to come to the emergency room for evaluation. EMS was called to move him to the chair after the fall, however patient was not able to get up from the chair in 3 days due to generalized weakness. Preliminary workup was significant for CK of 6000, BUN 50 creatinine 1.5 sodium 129 chloride 90 beta hydroxybutyrate 0.44 urine tox was positive for cannabinoids and benzos, with pt testing negative for influenza type A influenza type B COVID and RSV. Patient's Rhabdomyolysis was suspected to be from prolonged period on his chair without activity and possibly from unknown seizure episodes, and these resolved with IVF hydration. Patient was noted with 3 seizure like activities lasting about 10 sec during this hospitalization, and was treated with ativan and Keppra. Pt hasn't had any further episodes since. He was seen by Neurology and Keppra dose increased to 1000mg BID from the initial 750 mg BID. Prior to his discharge, patient reports that it was his son who reported that he was having seizure like activities but he doesn't believe he does. Patient refused to take Keppra the last 2 days prior to his discharge as he believed he did not have seizures, but was only non-responsive at times during coughing spells, and this has happened for years from when he was young. CT scan of the brain was negative with no intracranial bleed or hydrocephalus. He also had MRI brain that was done and negative for acute, with EEG also not showing any significant findings. Carotid Doppler study was also performed and did not show any significant abnormalities. His Vitamin-D level was very low under 12.8 on admission and he was started on supplements, vitamin-D 500 units a day. Patient has a chronic diabetic foot to his right plantar region that did not appear infected, and dressing changes were done by nursing staff. Adjustments were made to his insulin regimen and his blood glucose levels were fairly well controlled. He worked with PT/OT and inpatient rehab placement was recommended, where patient is currently being transferred. No signs of acute distress was noted or reported prior to discharge and pt was medically stable for transfer to inpatient Rehab. Status at Discharge Functional status at discharge: uses cane/walker Overall status at discharge: patient is progressing back to baseline Time Spent with Patient Time attestation: Total time spent providing and/or coordinating discharge services: Time spent: Greater than 30 minutes Exam Narrative: General: Well appearing, no acute distress. HEENT: Atraumatic, PERRL, EOM, moist mucosa, anicteric, NECK: Supple. Lungs: Clear bilaterally. Heart: RRR, no murmurs. Abdomen: Soft, obese, non-tender, +ve bowel sounds X4 quadrants. Extremities: No edema, 2+ve pedal and radial pulses, Skin: fungal appearing rash to perineal region much improved. Right plantar diabetic wound appears non-infected, with clean, dry and intact dressing. Neuro: Well oriented, no focal deficits noted. Psych: Pleasant and co-operative. DS: Data Data Completed and Pending Labs on day of discharge: Labs from last 24 hours 09/01/24 09/01/24 08/31/24 11:42 07:46 20:07 POC Capillary Glucose 216 H 176 H 289 H 08/31/24 17:03 POC Capillary Glucose 259 H Discharge Plan Discharge Attending physician on discharge: Leandro Hay Consulting providers: Enoc Rizo Discharging Clinician: Joe Gold Anticipated Discharge Date/Time: 09/01/24 16:25 Patient Disposition: [facility] Activity: as tolerated Diet: heart healthy and diabetic Patient Instructions: Pain Management (DC), Foot Care for People with Diabetes (GEN), Basic Carbohydrate Counting (GEN), Meal Planning with the Plate Method (GEN), Meal Planning with Diabetes Exchanges (GEN), Managing Diabetes During Sick Days (GEN), Foot Ulcers in a Person with Diabetes (GEN), Diabetic Hyperglycemia (GEN), Type 2 Diabetes in the Older Adult (GEN), Diabetes and Nutrition (GEN), Diabetes and Exercise (GEN), Type 2 Diabetes Management for Adults (GEN) Discharge Medications: New pregabalin [Lyrica] 75 mg Capsule 75 mg PO Q12HR Qty: 14 0RF polyethylene glycol 3350 [Miralax] 17 gram Powder In Packet 17 g PO QAM PRN (Reason: Constipation) Qty: 14 0RF cholecalciferol (vitamin D3) [Vitamin D3] 25 mcg (1,000 unit) Tablet 25 mcg PO DAILY Qty: 14 0RF folic acid 1 mg Tablet 1 mg PO DAILY Qty: 14 0RF levetiracetam [Keppra] 500 mg Tablet 1,000 mg PO Q12HR Qty: 14 0RF Continued alprazolam 0.5 mg tablet 0.5 mg PO BID PRN (Reason: Anxiety) losartan 100 mg tablet 100 mg PO DAILY insulin aspart U-100 [Novolog FlexPen U-100 Insulin] 100 unit/mL (3 mL) insulin pen See Rx Instructions .ROUTE .COMPLEX PRN (Reason: Hyperglycemia) Rx Instructions: SSI rosuvastatin 10 mg tablet 10 mg PO DAILY duloxetine 60 mg capsule,delayed release(DR/EC) 60 mg PO DAILY insulin degludec [Tresiba FlexTouch U-200] 200 unit/mL (3 mL) insulin pen See Rx Instructions .ROUTE .COMPLEX Rx Instructions: SSI Changed pregabalin 200 mg capsule 75 mg PO TID Qty: 14 0RF Discontinued Gemtesa 75 mg tablet 75 mg PO DAILY Date of admission: 08/20/24 09:57 Primary Care Provider: UNKNOWN,DOCTOR Admitting Provider: Jennifer Hammond V. Attending physician on admission: Elli Iqbal Condition: Stable Quality If No VTE Prophylaxis Answer both mechanical and pharmacologic: Reason no mechanical VTE proph: low risk/not indicated Reason no pharmacologic proph: low risk/not indicated Hospitalist MIPS Heart Failure (Exclusion) Patient has history of Heart Transplant or Left Ventricular Assistive Device?: No IF YES, STOP HERE Heart Failure (Qualifier) Patient has current or prior documentation of LVEF less than or equal to 40%, or mod/servere depressed LVSF?: No IF NO, STOP HERE
[2024-09-01 17:25] LABS: Glucose Point of Care 242 mg/dl (65-105)
== END 2024-09-01 17:50 | DRG 101 ==
LOC: ANHED 22:47 → ANH2MED 23:40 → ANHICU 08-19 15:25 → ANH2MED 08-25 02:37 → ANHICU 09-02 10:56 → ANHIMU 09-02 10:56
PROVIDERS: Internal Medicine; Nurse Practitioner Acute Care; Psychiatry & Neurology Neurology; Student in an Organized Health Care Education/Training Program; Admitting Provider Internal Medicine; Emergency Provider Physician Assistant; Visit Provider Nurse Practitioner Adult Health
DX: G40.89 Other seizures (principal); M62.82 Rhabdomyolysis; N17.9 Acute kidney failure, unspecified; E87.1 Hypo-osmolality and hyponatremia; G93.40 Encephalopathy, unspecified; R05.4 Cough syncope; E86.0 Dehydration; E11.621 Type 2 diabetes mellitus with foot ulcer; L97.519 Non-pressure chronic ulcer of other part of right foot with unspecified severity; E78.5 Hyperlipidemia, unspecified; F41.1 Generalized anxiety disorder; I10 Essential (primary) hypertension; Z20.822 Contact with and (suspected) exposure to COVID-19; E11.42 Type 2 diabetes mellitus with diabetic polyneuropathy; E11.69 Type 2 diabetes mellitus with other specified complication; E88.810 Metabolic syndrome; W19.XXXA Unspecified fall, initial encounter; E66.9 Obesity, unspecified; Z68.39 Body mass index [BMI] 39.0-39.9, adult; Z91.148 Patient's other noncompliance with medication regimen for other reason; R62.7 Adult failure to thrive
CPT/HCPCS: 36415; 36600; 70450; 70553; 71045; 73630; 76775; 80048; 80053; 80061; 80307; 81001; 82010; 82077; 82306; 82550; 82570; 82607; 82746; 82805; 82948; 83036; 83605; 83735; 83921; 84146; 84300; 84443; 84484; 85018; 85025; 85027; 85610; 85730; 87040; 87637; 92610; 93005; 93880; 93970; 95816; 96360; 97110; 97116; 97161; 97165; 97530; 97535; 99212; 99285; A9270; A9577; C8929; G0378; G0463; J1650; J1815; J1953; J2060; J7030; Q9957